=== PATIENT | female | born 1940 | race Caucasian/White ===

== ENCOUNTER 2018-03-25 10:48 | Inpatient (IN) ==
[2018-03-25] MEDS ORDERED: Morphine Inj 4 MG/ML Vial IV.PUSH ONE (15:50)
[2018-03-25] MEDS ORDERED: Sod Chloride 0.9% Inj 1,000 ML IV.SIG ONE (15:50)
--- NOTE | 2018-03-25 16:00 | ED ---
HPI General Chief Complaint: Abdominal Pain Stated Complaint: Pain Time Seen by Provider: 03/25/18 15:38 Source: patient and RN notes reviewed Mode of arrival: ambulatory Limitations: no limitations History of Present Illness HPI narrative: 77-year-old female presents to the emergency department for evaluation of abdominal pain. Patient states she had an endoscopy done by Dr. Manning, leasing manager, on Wednesday, March 16, 2018. She states that since then, she has had severe abdominal pain, shortness of breath with pain, difficulty eating solid foods. She states that when she eats solid foods, she nominal pain. No fevers or chills. Patient reports pain "at my esophagus". Patient reports associated nausea and vomiting. No vomiting yesterday or today. She also reports associated diarrhea, but no episodes today. She states she was recently diagnosed with pancreatic, intestinal cancer. She has called Dr. Alvarez's office to make an appointment, but has not been able to make an appointment at this time. She states that she was told they were reviewing her insurance. Patient reports history of appendectomy. Moderate severity. Current pain is 8/10. Patient reports 10-11 pound weight loss in the past week. MD complaint: Reports abdominal pain Onset (ago): week(s) (1) Pain Consistency: constant Location: Reports epigastric Severity: moderate Severity scale (1-10): 8 Quality: Reports aching Relieving factors: nothing Exacerbating factors: eating Context: Reports other (after endoscopy ) Associated symptoms: Reports nausea, vomiting and diarrhea; Denies fever, chills , constipation, dysuria, hematemesis, hematochezia, melena, hematuria, anorexia and syncope Related Data Home Medications Medication Instructions Recorded Confirmed bupropion HCl [Wellbutrin XL] 150 mg PO QAM 03/25/18 03/25/18 fluoxetine 40 mg PO DAILY 03/25/18 03/25/18 [id number] [Zenpep] PO QID 03/25/18 simvastatin 20 mg PO QPM 03/25/18 03/25/18 sucralfate 1 g PO Q6H 03/25/18 03/25/18 trazodone 50 mg PO DAILY 03/25/18 03/25/18 Allergies Allergy/AdvReac Type Severity Reaction Status Date / Time No Known Allergies Allergy Verified 03/25/18 11:28 Review of Systems ROS: all other systems reviewed are negative [facility] Medical History Medical History History of breast cancer (Acute) Hyperlipidemia (Acute) Pancreatic cancer (Acute) Surgical History Surgical History History of appendectomy (Acute) History of lumpectomy (Acute) History of lymph node dissection of axilla (Acute) Family History Family History Other Family history normal Social History Social History Substance History: No History of Abuse Second Hand Smoke Exposure: No Smoking Status: Never smoker How Often Do You Have a Drink Containing Alcohol: Never Recent Travel in [facility] within the Last 8 Weeks: No Recent Out of Country Travel within the Last 8 Weeks: No Exam Narrative Exam Narrative: GENERAL: Well-nourished, well-developed female patient, ambulatory. Afebrile. SKIN: Focused skin assessment warm/dry. HEAD: Normocephalic. Atraumatic. EYES: No scleral icterus. No injection or drainage. NECK: Supple, trachea midline. No JVD or lymphadenopathy. CARDIOVASCULAR: Regular rate and rhythm without murmurs, gallops, or rubs. RESPIRATORY: Breath sounds equal bilaterally. No accessory muscle use. Lung sounds are clear to auscultation. GASTROINTESTINAL: Abdomen soft and nondistended. Patient has tenderness to epigastric region MUSCULOSKELETAL: No cyanosis, or edema. BACK: Nontender without obvious deformity. No CVA tenderness. Course Initial Documented Vital Signs Temperature 98.7 F 03/25/18 11:25 Pulse Rate 96 H 03/25/18 11:25 Respiratory Rate 18 03/25/18 11:25 Blood Pressure 167/70 H 03/25/18 11:25 Pulse Oximetry 94 L 03/25/18 11:25 Last Documented Vital Signs Temperature 98.7 F 03/25/18 11:25 Pulse Rate 88 03/25/18 20:00 Respiratory Rate 17 03/25/18 20:00 Blood Pressure 120/63 03/25/18 20:00 Pulse Oximetry 97 03/25/18 20:00 Medical Decision Making BRIAN Attestation BRIAN supervised visit: Yes Attestation: I, Dr. Carmona, have reviewed the advance practice practitioner's documentation and am in agreement, met with the patient face to face, made the diagnosis, and the medical decision making was done by me. *My assessment and Findings: Patient seen and evaluated with nurse practitioner , please see nurse practitioner's note for further details. Here with upper abdominal pains, has had recent pancreatic cancer diagnosis, workup initiated including CAT scan in the ER. MDM Narrative Medical decision making narrative: 77-year-old female presents to the emergency department for evaluation of abdominal pain, shortness of breath after endoscopy 9 days ago. She reports recently being diagnosed with pancreatic cancer, not currently undergoing treatment. IV access is obtained. EKG, CBC, CMP, lipase, magnesium, CK, troponin, PTT, PT/INR, UA are ordered and pending. Chest x-ray, CT of the abdomen/pelvis with IV contrast ordered and pending. Patient is given normal saline 1 L IV bolus, morphine 4 mg IV, Zofran 4 mg IV. CBC shows no acute abnormality. CMP shows hypokalemia of 2.8. Lipase is 5222. Magnesium is 2.3. CK is 68. Troponin is less than 0.02. PTT is 25.2. PT/ INR is 9.7/1.0. UA is negative. Chest x-ray shows no evidence of acute cardiopulmonary process. CT of the abdomen/pelvis shows Biliary and pancreatic ductal dilatation. An apparent vague low-density mass of the pancreatic head estimated at 2.6 cm in size; Scattered low-density lesions of the liver of concern for metastases. These measure up to 1.6 cm in size. No other evidence of metastatic disease; Lobulated fibroid uterus; No acute abnormality seen of the alimentary tract. Patient will be admitted for pancreatitis, pancreatic cancer, hypokalemia. Medical Screen Exam Complete: Yes Emergency Medical Condition: Yes Lab Data Result diagrams: 03/25/18 16:15 03/25/18 16:15 Lab Results 03/25/18 03/25/18 03/25/18 Range/Units 16:15 16:15 16:15 WBC 6.9 (4.0-11.0) th/mm3 RBC 3.99 L (4.00-5.30) mil/mm3 Hgb 13.0 (11.6-15.3) gm/dL Hct 37.5 (35.0-46.0) % MCV 93.9 (80.0-100.0) fL MCH 32.6 (27.0-34.0) pg MCHC 34.7 (32.0-36.0) % RDW 12.1 (11.6-17.2) % Plt Count 301 (150-450) th/mm3 MPV 7.6 (7.0-11.0) fL Neut % (Auto) 70.1 H (16.0-70.0) % Lymph % (Auto) 14.3 (9.0-44.0) % [place] % (Auto) 11.7 H (0.0-8.0) % Eos % (Auto) 3.2 (0.0-4.0) % Baso % (Auto) 0.7 (0.0-2.0) % Neut # (Auto) 4.8 (1.8-7.7) th/mm3 Lymph # (Auto) 1.0 (1.0-4.8) th/mm3 [place] # (Auto) 0.8 (0.0-0.9) th/mm3 Eos # (Auto) 0.2 (0.0-0.4) th/mm3 Baso # (Auto) 0.0 (0.0-0.2) th/mm3 WBC Differential . Differential Comment Auto diff final PT 9.7 L (9.8-11.6) sec INR 1.0 Ratio APTT 25.2 (23.4-31.7) sec Sodium 139 (136-145) meq/L Potassium 2.8 L* (3.5-5.1) meq/L Chloride 101 (98-107) meq/L Carbon Dioxide 32.0 (21.0-32.0) meq/L Anion Gap 6 (5-15) meq/L BUN 15 (7-18) mg/dL Creatinine 0.72 (0.50-1.00) mg/dL Estimated GFR 79 L (>89) mL/min Random Glucose 129 H (74-106) mg/dL Calcium 8.9 (8.5-10.1) mg/dL Magnesium 2.3 (1.5-2.5) mg/dL Total Bilirubin 0.4 (0.2-1.0) mg/dL AST 38 H (15-37) U/L ALT 46 (10-53) U/L Alkaline Phosphatase 124 H (45-117) U/L Total Creatine Kinase 68 (26-192) U/L Troponin I Less than 0.02 L (0.02-0.05) ng/mL Total Protein 7.7 (6.4-8.2) g/dL Albumin 3.4 (3.4-5.0) g/dL Lipase 5222 H (73-393) U/L Urine Color (Yellw/Straw) Urine Clarity (Clear) Urine pH (5.0-8.5) Ur Specific [place] (1.002-1.035) Urine Protein (Neg-Trace) mg/dL Urine Glucose (UA) (Negative) mg/dL Urine Ketones (Negative) mg/dL Urine Occult Blood (Negative) Urine Nitrate (Negative) Urine Bilirubin (Negative) Urine Urobilinogen (Less than 2) mg/dL Ur Leukocyte Esterase (Negative) Urine WBC (0-5) /hpf Micro UA Comment Ur Microscopic Review Urine Culture Comments 03/25/18 Range/Units 17:25 WBC (4.0-11.0) th/mm3 RBC (4.00-5.30) mil/mm3 Hgb (11.6-15.3) gm/dL Hct (35.0-46.0) % MCV (80.0-100.0) fL MCH (27.0-34.0) pg MCHC (32.0-36.0) % RDW (11.6-17.2) % Plt Count (150-450) th/mm3 MPV (7.0-11.0) fL Neut % (Auto) (16.0-70.0) % Lymph % (Auto) (9.0-44.0) % [place] % (Auto) (0.0-8.0) % Eos % (Auto) (0.0-4.0) % Baso % (Auto) (0.0-2.0) % Neut # (Auto) (1.8-7.7) th/mm3 Lymph # (Auto) (1.0-4.8) th/mm3 [place] # (Auto) (0.0-0.9) th/mm3 Eos # (Auto) (0.0-0.4) th/mm3 Baso # (Auto) (0.0-0.2) th/mm3 WBC Differential Differential Comment PT (9.8-11.6) sec INR Ratio APTT (23.4-31.7) sec Sodium (136-145) meq/L Potassium (3.5-5.1) meq/L Chloride (98-107) meq/L Carbon Dioxide (21.0-32.0) meq/L Anion Gap (5-15) meq/L BUN (7-18) mg/dL Creatinine (0.50-1.00) mg/dL Estimated GFR (>89) mL/min Random Glucose (74-106) mg/dL Calcium (8.5-10.1) mg/dL Magnesium (1.5-2.5) mg/dL Total Bilirubin (0.2-1.0) mg/dL AST (15-37) U/L ALT (10-53) U/L Alkaline Phosphatase (45-117) U/L Total Creatine Kinase (26-192) U/L Troponin I (0.02-0.05) ng/mL Total Protein (6.4-8.2) g/dL Albumin (3.4-5.0) g/dL Lipase (73-393) U/L Urine Color Straw (Yellw/Straw) Urine Clarity Clear (Clear) Urine pH 7.0 (5.0-8.5) Ur Specific [place] 1.004 (1.002-1.035) Urine Protein Negative (Neg-Trace) mg/dL Urine Glucose (UA) Negative (Negative) mg/dL Urine Ketones Negative (Negative) mg/dL Urine Occult Blood Negative (Negative) Urine Nitrate Negative (Negative) Urine Bilirubin Negative (Negative) Urine Urobilinogen Less than 2 (Less than 2) mg/dL Ur Leukocyte Esterase Negative (Negative) Urine WBC 1 (0-5) /hpf Micro UA Comment Culture not ind Ur Microscopic Review Not Reportable Urine Culture Comments Culture not ind Imaging Data Radiologist's impression: Abdomen/Pelvis CT 03/25/18 15:50 CONCLUSION: 1. Biliary and pancreatic ductal dilatation. An apparent vague low-density mass of the pancreatic head estimated at 2.6 cm in size. 2. Scattered low-density lesions of the liver of concern for metastases. These measure up to 1.6 cm in size. No other evidence of metastatic disease. 3. Lobulated fibroid uterus. 4. No acute abnormality seen of the alimentary tract. Chest X-Ray 03/25/18 15:50 CONCLUSION: No evidence of acute cardiopulmonary process. Discharge Plan Discharge Disposition Patient Disposition: 30 Still Patient Discharge Details Diagnosis: Pancreatitis, Pancreatic cancer, Hypokalemia Physicians Team ED Provider: Candy Carmona ED Midlevel Provider: Janel Irving Primary Care Provider: Primary Care Love Elizabeth Attending Provider: Karolyn Live Other Providers: Jose Caputo Status ED Status: Left Department Discharge Information Discharge Date/Time: 03/25/18 21:56
--- NOTE | 2018-03-25 16:19 | XR ---
EXAM DATE: 03/25/2018 4:15 PM EST AGE/SEX: 77 years / Female INDICATIONS: Lower chest/upper abdomen pain. CLINICAL DATA: This is the patient's initial encounter. Patient reports that signs and symptoms have been present for 1 week and indicates a pain score of 5/10. MEDICAL/SURGICAL HISTORY: None. None. COMPARISON: No prior exams available for comparison. FINDINGS: Lungs are hypoaerated but otherwise clear. There is no evidence of acute airspace disease or congesti on. Heart and mediastinal structures are unremarkable. Osseous structures are intact. CONCLUSION: No evidence of acute cardiopulmonary process. Electronically signed by: Caleb Beltran MD 03/25/2018 4:17 PM EST
[2018-03-25 17:11] LABS: Baso % (Auto) 0.7 % (0.0-2.0); Eos # (Auto) 0.2 th/mm3 (0.0-0.4); Eos % (Auto) 3.2 % (0.0-4.0); Hematocrit 37.5 % (35.0-46.0); Lymph % (Auto) 14.3 % (9.0-44.0); Mean Corpuscular HGB Conc 34.7 % (32.0-36.0); Mean Corpuscular Hemoglobin 32.6 pg (27.0-34.0); Mean Corpuscular Volume 93.9 fL (80.0-100.0); Mean Platelet Volume 7.6 fL (7.0-11.0); Mono # (Auto) 0.8 th/mm3 (0.0-0.9); Mono % (Auto) 11.7 % (0.0-8.0); Neut # (Auto) 4.8 th/mm3 (1.8-7.7); Neut % (Auto) 70.1 % (16.0-70.0); Platelet Count 301 th/mm3 (150-450); Red Blood Count 3.99 mil/mm3 (4.00-5.30); Red Cell Distribution Width 12.1 % (11.6-17.2); White Blood Count 6.9 th/mm3 (4.0-11.0)
[2018-03-25 17:23] LABS: Activated Partial Thrombo Time 25.2 sec (23.4-31.7); Prothrombin Time 9.7 sec (9.8-11.6)
[2018-03-25 17:34] LABS: Alanine Aminotransferase 46 U/L (10-53); Albumin 3.4 g/dL (3.4-5.0); Alkaline Phosphatase 124 U/L (45-117); Anion Gap 6 meq/L (5-15); Aspartate Aminotransferase 38 U/L (15-37); Blood Urea Nitrogen 15 mg/dL (7-18); Calcium 8.9 mg/dL (8.5-10.1); Chloride 101 meq/L (98-107); Glomerular Filtration Rate 79 mL/min (>89); Glucose,Random 129 mg/dL (74-106); Lipase 5222 U/L (73-393); Magnesium 2.3 mg/dL (1.5-2.5); Sodium 139 meq/L (136-145); Total Protein 7.7 g/dL (6.4-8.2)
[2018-03-25 17:36] LABS: Creatine Kinase 68 U/L (26-192); Potassium 2.8 meq/L (3.5-5.1)
[2018-03-25 17:52] LABS: Bilirubin,Urine Negative (Negative); Clarity,Urine Clear (Clear); Color,Urine Straw (Yellw/Straw); Glucose,Urine (UA) Negative (Negative); Leukocyte Esterase,Urine Negative (Negative); Nitrite,Urine Negative (Negative); Specific Gravity,Urine 1.004 (1.002-1.035)
--- NOTE | 2018-03-25 18:56 | CT ---
EXAM DATE: 03/25/2018 6:40 PM EST AGE/SEX: 77 years / Female INDICATIONS: Abdominal pain; difficulty eating solid foods. CLINICAL DATA: This is the patient's initial encounter. Patient reports that signs and symptoms have been present for 1 day and indicates a pain score of 6/10. MEDICAL/SURGICAL HISTORY: Carcinoma, pancreas. None. ORAL CONTRAST: No oral contrast ingested. RADIATION DOSE: 7.86 CTDI (mGy) COMPARISON: No prior exams available for comparison. TECHNIQUE: Multiple contiguous axial images were obtained through the abdomen and pelvis following b olus infusion of 97 ml Omnipaque 350 (iohexol) nonionic water-soluble contrast as a single exam dos e. No oral contrast ingested. Using automated exposure control and adjustment of the mA and/or kV ac cording to patient size, radiation dose was kept as low as reasonably achievable to obtain optimal di agnostic quality images. DICOM format image data is available electronically for review and comparis on. FINDINGS: There is intrahepatic and extrahepatic biliary distention. Common bile duct measures approximately 18 mm and is distended down to the pancreatic head. There is a questionable vague low-density mass of t he pancreatic head measuring roughly 2.6 cm. There is pancreatic duct dilatation but no parenchymal a trophy. Numerous scattered hypodensities of the liver and not convincing for cysts or other benign st ructures. These measure up to 1.6 cm in size. No obstruction or acute inflammatory changes seen of the gastrointestinal tract. I don't convincingly see a GI tract mass. Spleen, adrenal glands and kidneys are within normal limits. No free fluid or f ree air. No lymphadenopathy. Fibroid uterus noted. Trace atelectasis seen of the visualized lung bases. No acute abnormalities are seen of the visualize d osseous structures are CONCLUSION: 1. Biliary and pancreatic ductal dilatation. An apparent vague low-density mass of the pancreatic he ad estimated at 2.6 cm in size. 2. Scattered low-density lesions of the liver of concern for metastases. These measure up to 1.6 cm in size. No other evidence of metastatic disease. 3. Lobulated fibroid uterus. 4. No acute abnormality seen of the alimentary tract. Electronically signed by: Tyler Gardner MD 03/25/2018 6:55 PM EST
[2018-03-25] MEDS ORDERED: Bisacodyl 10 MG Supp RECTAL PRN (20:58)
--- NOTE | 2018-03-25 21:06 | P.HP ---
History of Present Illness Service: [facility] Primary Care Physician: No Primary Care Physician History of Present Illness: 77-year-old female with past medical history is for recently diagnosed pancreatic cancer, hyperlipidemia and history of breast cancer presents to the emergency department for the evaluation of progressively worsening epigastric abdominal pain. The patient reports that for the past week she has had nausea and vomiting with worsening abdominal pain. Her pain is aggravated by food. She reports associated anorexia. She had an EGD on 03/16/[address] Manning and per the patient, reports biopsy-proven pancreatic cancer. She is supposed to follow-up with Dr. Alvarez as an outpatient however has not yet been evaluated. She denies any fever/chills. No chest pain or shortness of breath. No focal neurologic deficits. Inpatient Certification: I certify that the inpatient services were ordered in accordance with Medicare regulations governing the order. This includes certification that hospital inpatient services are reasonable and necessary and in the case of services not specified as inpatient-only under 42 CFR 419.22(n), that they are appropriately provided as inpatient services in accordance to with the 2-midnight benchmark under 43 CFR 412.3(e) Estimated Total Length of Stay (Days): 3 Plans for Post Hospital Care: Not yet determined Review of Systems All other systems reviewed negative except as stated in HPI PMFSH - History History Provided By: Patient, Family Member - Medical History Medical History: Medical History (Last Updated 03/25/18 @ 21:03 by Karolyn Live MD) History of breast cancer Hyperlipidemia Pancreatic cancer - Surgical History Surgical History: Surgical History (Last Updated 03/25/18 @ 21:03 by Karolyn Live MD) History of appendectomy History of lumpectomy History of lymph node dissection of axilla - Family History Family History: Family History (Last Updated 03/25/18 @ 21:03 by Karolyn Live MD) Other Family history normal - Tobacco History Smoking Status: Former smoker - Alcohol History How Often Do You Have a Drink Containing Alcohol: Never - Substance Use History Substance History: No History of Abuse - Travel History Recent Travel in the [place] Within the Last 8 Weeks: No Recent Travel Out of the Country Within the Last 8 Weeks: No - Immunization History Tetanus Immunization: Unsure Medications and Allergies Active Medications: Active Medications Al Hydroxide/Mg Hydroxide (Milk Of Magnesia Liq) 30 ml PO Q12H PRN PRN Reason: Mild Constipation Bisacodyl (Dulcolax Supp) 10 mg RECTAL DAILY PRN PRN Reason: SEVERE CONSITIPATION Lactulose (Lactulose Liq) 30 ml PO DAILY PRN PRN Reason: SEVERE CONSITIPATION Sodium Chloride (Ns Flush) 2 ml IV.FLUSH PRN PRN PRN Reason: FLUSH AFTER USING IV ACCESS Last Admin: 03/25/18 16:11 Dose: 2 ml Allergies Allergy/AdvReac Type Severity Reaction Status Date / Time No Known Allergies Allergy Verified 03/25/18 11:28 Home Medications Medication Instructions Recorded Confirmed Type bupropion HCl [Wellbutrin XL] 150 mg PO QAM 03/25/18 03/25/18 History fluoxetine 40 mg PO DAILY 03/25/18 03/25/18 History zoxvjh-laxvahqh-ljppltp [Zenpep] PO QID 03/25/18 History simvastatin 20 mg PO QPM 03/25/18 03/25/18 History sucralfate 1 g PO Q6H 03/25/18 03/25/18 History trazodone 50 mg PO DAILY 03/25/18 03/25/18 History Exam Vital signs: Vital Signs 03/25/18 11:25 03/25/18 16:02 03/25/18 16:03 Temperature 98.7 F Pulse Rate 96 H 88 89 Respiratory Rate 18 20 Blood Pressure 167/70 H 169/79 H Pulse Oximetry 94 L 96 03/25/18 20:00 Temperature Pulse Rate 88 Respiratory Rate 17 Blood Pressure 120/63 Pulse Oximetry 97 Intake & Output 03/25/18 03/25/18 03/26/18 06:59 18:59 06:59 Intake Total 1000 / 1000 Balance 1000 / 1000 Weight 68.039 kg Intake: IV 1000 / 1000 NS Inj 1,000 ML @ Wide Open IV. 1000 / 1000 SIG BOLUS ONE Rx#:[id number] Narrative: Gen.: No acute distress Head: Normocephalic. Atraumatic. EENT: Pupils equal round and reactive to light. Nose without drainage. Airway intact. Throat without injection. Cardiovascular: Regular rate and rhythm. No murmurs, rubs or gallops. Respiratory: Lungs clear to auscultation bilaterally. No wheezes or rhonchi. Abdomen: Soft, tender to palpation in the epigastrium, nondistended. No peritoneal signs. Musculoskeletal: No gross deformities. No edema. Skin: No obvious rashes or erythema. Neuro: Sensory and motor grossly intact. Cranial nerves II through XII grossly intact. Results - Labs CBC & Chem 7: 03/25/18 16:15 03/25/18 16:15 Labs: Laboratory Results - last 24 hr 03/25/18 03/25/18 03/25/18 16:15 16:15 16:15 WBC 6.9 RBC 3.99 L Hgb 13.0 Hct 37.5 MCV 93.9 MCH 32.6 MCHC 34.7 RDW 12.1 Plt Count 301 MPV 7.6 Neut % (Auto) 70.1 H Lymph % (Auto) 14.3 [place] % (Auto) 11.7 H Eos % (Auto) 3.2 Baso % (Auto) 0.7 Neut # (Auto) 4.8 Lymph # (Auto) 1.0 [place] # (Auto) 0.8 Eos # (Auto) 0.2 Baso # (Auto) 0.0 WBC Differential . Differential Comment Auto diff final PT 9.7 L INR 1.0 APTT 25.2 Sodium 139 Potassium 2.8 L* Chloride 101 Carbon Dioxide 32.0 Anion Gap 6 BUN 15 Creatinine 0.72 Estimated GFR 79 L Random Glucose 129 H Calcium 8.9 Magnesium 2.3 Total Bilirubin 0.4 AST 38 H ALT 46 Alkaline Phosphatase 124 H Total Creatine Kinase 68 Troponin I Less than 0.02 L Total Protein 7.7 Albumin 3.4 Lipase 5222 H Urine Color Urine Clarity Urine pH Ur Specific [place] Urine Protein Urine Glucose (UA) Urine Ketones Urine Occult Blood Urine Nitrate Urine Bilirubin Urine Urobilinogen Ur Leukocyte Esterase Urine WBC Micro UA Comment Ur Microscopic Review Urine Culture Comments 03/25/18 17:25 WBC RBC Hgb Hct MCV MCH MCHC RDW Plt Count MPV Neut % (Auto) Lymph % (Auto) [place] % (Auto) Eos % (Auto) Baso % (Auto) Neut # (Auto) Lymph # (Auto) [place] # (Auto) Eos # (Auto) Baso # (Auto) WBC Differential Differential Comment PT INR APTT Sodium Potassium Chloride Carbon Dioxide Anion Gap BUN Creatinine Estimated GFR Random Glucose Calcium Magnesium Total Bilirubin AST ALT Alkaline Phosphatase Total Creatine Kinase Troponin I Total Protein Albumin Lipase Urine Color Straw Urine Clarity Clear Urine pH 7.0 Ur Specific [place] 1.004 Urine Protein Negative Urine Glucose (UA) Negative Urine Ketones Negative Urine Occult Blood Negative Urine Nitrate Negative Urine Bilirubin Negative Urine Urobilinogen Less than 2 Ur Leukocyte Esterase Negative Urine WBC 1 Micro UA Comment Culture not ind Ur Microscopic Review Not Reportable Urine Culture Comments Culture not ind - Imaging Impressions Abdomen/Pelvis CT 03/25/18 15:50 CONCLUSION: 1. Biliary and pancreatic ductal dilatation. An apparent vague low-density mass of the pancreatic head estimated at 2.6 cm in size. 2. Scattered low-density lesions of the liver of concern for metastases. These measure up to 1.6 cm in size. No other evidence of metastatic disease. 3. Lobulated fibroid uterus. 4. No acute abnormality seen of the alimentary tract. Chest X-Ray 03/25/18 15:50 CONCLUSION: No evidence of acute cardiopulmonary process. Caprini VTE Risk Assessment Caprini VTE Risk Assessment: Moderate/High Risk (score >= 2) Caprini Risk Assessment Model: Point Value = 1 Point Value = 2 Point Value = 3 Point Value = 5 Age 41-60 Minor surgery BMI > 25 kg/m2 Swollen legs Varicose veins or History of unexplained or recurrent spontaneous Oral contraceptives or hormone replacement Sepsis (< 1 month) Serious lung disease, including pneumonia (< 1 month) Abnormal pulmonary function Acute myocardial infarction Congestive heart failure (< 1 month) History of inflammatory bowel disease Medical patient at bed rest Age 61-74 Arthroscopic surgery Major open surgery (> 45 min) Laparoscopic surgery (> 45 min) Malignancy Confined to bed (> 72 hours) Immobilizing plaster cast Central venous access Age >= 75 History of VTE Family history of VTE Factor V Leiden Prothrombin [id number] Lupus anticoagulant Anticardiolipin antibodies Elevated serum homocysteine Heparin-induced thrombocytopenia Other congenital or acquired thrombophilia Stroke (< 1 month) Elective arthroplasty Hip, pelvis, or leg fracture Acute spinal cord injury (< 1 month) Prophylaxis Regimen: Total Risk Factor Score Risk Level Prophylaxis Regimen 0-1 Low Early ambulation 2 Moderate Order ONE of the following: *Sequential Compression Device (SCD) *Heparin 5000 units SQ BID 3-4 Higher Order ONE of the following medications: *Heparin 5000 units SQ TID *Enoxaparin/Lovenox 40 mg SQ daily (WT < 150 kg, CrCl > 30 mL/min) *Enoxaparin/Lovenox 30 mg SQ daily (WT < 150 kg, CrCl > 10-29 mL/min) *Enoxaparin/Lovenox 30 mg SQ BID (WT < 150 kg, CrCl > 30 mL/min) AND/OR *Sequential Compression Device (SCD) 5 or more Highest Order ONE of the following medications: *Heparin 5000 units SQ TID (Preferred with Epidurals) *Enoxaparin/Lovenox 40 mg SQ daily (WT < 150 kg, CrCl > 30 mL/min) *Enoxaparin/Lovenox 30 mg SQ daily (WT < 150 kg, CrCl > 10-29 mL/min) *Enoxaparin/Lovenox 30 mg SQ BID (WT < 150 kg, CrCl > 30 mL/min) AND *Sequential Compression Device (SCD) Assessment and Plan - Plan Assessment/plan: 1. Pancreatic cancer/abdominal pain/nausea/vomiting Newly diagnosed, status post EGD with biopsy on 03/16/18 CT of the abdomen/pelvis shows biliary and pancreatic ductal dilation with pancreatic head mass. Also concerning for metastasis in the liver. Oncology consulted, appreciate assistance Morphine and Zofran 2. Hypokalemia Potassium 2.8 Status post p.o. and IV repletion Monitor BMP 3. Hyperlipidemia Holding home medications at this time as patient not tolerating p.o. FEN Clear liquid diet Electrolytes: As above Heparin NS +20 of KCl at 84 cc/hour
[2018-03-25] MEDS ORDERED: Sodium Chloride 0.9% 2 ML Flush PRN IV.FLUSH (21:09)
[2018-03-25] MEDS: Senna/Docusate Sodium 8.6/50 MG Tablet PO SCH (21:19)
[2018-03-25] MEDS: Heparin - SQ 10,000 UNITS/ML Vial SQ SCH (21:19)
[2018-03-25] MEDS ORDERED: traZODone 50 MG Tablet PO ONE (22:44)
[2018-03-25] MEDS: Morphine Inj 4 MG/ML Vial IV.PUSH PRN (22:53)
[2018-03-26 07:00] LABS: Baso % (Auto) 0.9 % (0.0-2.0); Eos # (Auto) 0.2 th/mm3 (0.0-0.4); Eos % (Auto) 4.1 % (0.0-4.0); Hematocrit 33.8 % (35.0-46.0); Hemoglobin 11.2 gm/dL (11.6-15.3); Lymph # (Auto) 1.1 th/mm3 (1.0-4.8); Lymph % (Auto) 21.9 % (9.0-44.0); Mean Corpuscular HGB Conc 33.2 % (32.0-36.0); Mean Corpuscular Hemoglobin 32.2 pg (27.0-34.0); Mean Platelet Volume 7.8 fL (7.0-11.0); Mono # (Auto) 0.6 th/mm3 (0.0-0.9); Mono % (Auto) 12.5 % (0.0-8.0); Neut % (Auto) 60.6 % (16.0-70.0); Platelet Count 262 th/mm3 (150-450); Red Blood Count 3.49 mil/mm3 (4.00-5.30); Red Cell Distribution Width 12.1 % (11.6-17.2)
[2018-03-26 07:15] LABS: Alanine Aminotransferase 36 U/L (10-53); Albumin 2.9 g/dL (3.4-5.0); Alkaline Phosphatase 99 U/L (45-117); Anion Gap 5 meq/L (5-15); Aspartate Aminotransferase 30 U/L (15-37); Blood Urea Nitrogen 10 mg/dL (7-18); Calcium 8.4 mg/dL (8.5-10.1); Chloride 108 meq/L (98-107); Glomerular Filtration Rate Greater Than 89 mL/min (>89); Glucose,Random 117 mg/dL (74-106); Potassium 4.2 meq/L (3.5-5.1); Sodium 141 meq/L (136-145); Total Protein 6.4 g/dL (6.4-8.2)
[2018-03-26] MEDS ORDERED: Influenza (Quadrivalent) Vaccine 0.5 ML Syringe IM ONE (09:00)
[2018-03-26] MEDS: Sodium Chloride 0.9% 2 ML Flush BID IV.FLUSH SCH ×2 (10:08→20:11)
[2018-03-26] MEDS: Heparin - SQ 10,000 UNITS/ML Vial SQ SCH ×2 (10:09→20:10)
[2018-03-26] MEDS: Senna/Docusate Sodium 8.6/50 MG Tablet PO SCH ×2 (10:09→20:10)
--- NOTE | 2018-03-26 10:31 | P.PN ---
Subjective Interval history: Follow-up pancreatic cancer with metastasis March 26, 2018-patient seen and examined, reports improving abdominal pain along with p.o. intake Physical Exam Vital signs: Vital Signs 03/25/18 11:25 03/25/18 16:02 03/25/18 16:03 Temperature 98.7 F Pulse Rate 96 H 88 89 Respiratory Rate 18 20 Blood Pressure 167/70 H 169/79 H Pulse Oximetry 94 L 96 03/25/18 20:00 03/26/18 00:00 03/26/18 00:29 Temperature 97.8 F Pulse Rate 88 111 H Respiratory Rate 17 Blood Pressure 120/63 118/53 L Pulse Oximetry 97 78 L 97 03/26/18 00:41 03/26/18 04:00 03/26/18 04:21 Temperature 98.2 F Pulse Rate 94 H 87 85 Respiratory Rate 18 Blood Pressure 124/60 Pulse Oximetry 97 03/26/18 09:45 Temperature 98.4 F Pulse Rate 85 Respiratory Rate 16 Blood Pressure 125/59 L Pulse Oximetry 97 Intake & Output 03/25/18 03/26/18 03/26/18 18:59 06:59 18:59 Intake Total 1000 / 1000 480 / 480 1000 / 1000 Balance 1000 / 1000 480 / 480 1000 / 1000 Weight 68.039 kg 67.5 kg Intake: IV 1000 / 1000 1000 / 1000 NS + KCl 20 mEq Inj 1,000 ML @ 1000 / 1000 84 mls/hr IV.CONT .[id number] [facility] Rx#:[id number] NS Inj 1,000 ML @ Wide Open IV. 1000 / 1000 SIG BOLUS ONE Rx#:[id number] Oral 480 / 480 Other: # Voids 3 Date of Last Bowel Movement 03/25/18 Weight On Admission 67.5 kg Narrative: GENERAL: NAD SKIN: Warm and dry. HEAD: Atraumatic. Normocephalic. EYES: Pupils equal and round. No scleral icterus. No injection or drainage. ENT: No nasal bleeding or discharge. Mucous membranes pink and moist. NECK: Trachea midline. No JVD. CARDIOVASCULAR: Regular rate and rhythm. RESPIRATORY: No accessory muscle use. Clear to auscultation. Breath sounds equal bilaterally. GASTROINTESTINAL: Abdomen soft, mildly tender, nondistended. Hepatic and splenic margins not palpable. MUSCULOSKELETAL: Extremities without clubbing, cyanosis, or edema. No obvious deformities. NEUROLOGICAL: Awake and alert. No obvious cranial nerve deficits. Motor grossly within normal limits. Five out of 5 muscle strength in the arms and legs. Normal speech. PSYCHIATRIC: Appropriate mood and affect; insight and judgment normal. Results - Labs CBC & Chem 7: 03/26/18 05:25 03/26/18 05:25 Laboratory Results - last 24 hr 03/25/18 03/25/18 03/25/18 16:15 16:15 16:15 WBC 6.9 RBC 3.99 L Hgb 13.0 Hct 37.5 MCV 93.9 MCH 32.6 MCHC 34.7 RDW 12.1 Plt Count 301 MPV 7.6 Neut % (Auto) 70.1 H Lymph % (Auto) 14.3 [place] % (Auto) 11.7 H Eos % (Auto) 3.2 Baso % (Auto) 0.7 Neut # (Auto) 4.8 Lymph # (Auto) 1.0 [place] # (Auto) 0.8 Eos # (Auto) 0.2 Baso # (Auto) 0.0 WBC Differential . Differential Comment Auto diff final PT 9.7 L INR 1.0 APTT 25.2 Sodium 139 Potassium 2.8 L* Chloride 101 Carbon Dioxide 32.0 Anion Gap 6 BUN 15 Creatinine 0.72 Estimated GFR 79 L Random Glucose 129 H Calcium 8.9 Magnesium 2.3 Total Bilirubin 0.4 AST 38 H ALT 46 Alkaline Phosphatase 124 H Total Creatine Kinase 68 Troponin I Less than 0.02 L Total Protein 7.7 Albumin 3.4 Lipase 5222 H Urine Color Urine Clarity Urine pH Ur Specific [place] Urine Protein Urine Glucose (UA) Urine Ketones Urine Occult Blood Urine Nitrate Urine Bilirubin Urine Urobilinogen Ur Leukocyte Esterase Urine WBC Micro UA Comment Ur Microscopic Review Urine Culture Comments 03/25/18 03/26/18 03/26/18 17:25 05:25 05:25 WBC 5.0 RBC 3.49 L Hgb 11.2 L Hct 33.8 L MCV 97.0 MCH 32.2 MCHC 33.2 RDW 12.1 Plt Count 262 MPV 7.8 Neut % (Auto) 60.6 Lymph % (Auto) 21.9 [place] % (Auto) 12.5 H Eos % (Auto) 4.1 H Baso % (Auto) 0.9 Neut # (Auto) 3.0 Lymph # (Auto) 1.1 [place] # (Auto) 0.6 Eos # (Auto) 0.2 Baso # (Auto) 0.0 WBC Differential . Differential Comment Auto diff final PT INR APTT Sodium 141 Potassium 4.2 D Chloride 108 H Carbon Dioxide 28.0 Anion Gap 5 BUN 10 Creatinine 0.63 Estimated GFR Greater than 89 Random Glucose 117 H Calcium 8.4 L Magnesium Total Bilirubin 0.5 AST 30 ALT 36 Alkaline Phosphatase 99 Total Creatine Kinase Troponin I Total Protein 6.4 D Albumin 2.9 L Lipase Urine Color Straw Urine Clarity Clear Urine pH 7.0 Ur Specific [place] 1.004 Urine Protein Negative Urine Glucose (UA) Negative Urine Ketones Negative Urine Occult Blood Negative Urine Nitrate Negative Urine Bilirubin Negative Urine Urobilinogen Less than 2 Ur Leukocyte Esterase Negative Urine WBC 1 Micro UA Comment Culture not ind Ur Microscopic Review Not Reportable Urine Culture Comments Culture not ind 03/26/18 05:25 WBC RBC Hgb Hct MCV MCH MCHC RDW Plt Count MPV Neut % (Auto) Lymph % (Auto) [place] % (Auto) Eos % (Auto) Baso % (Auto) Neut # (Auto) Lymph # (Auto) [place] # (Auto) Eos # (Auto) Baso # (Auto) WBC Differential Differential Comment PT INR APTT Sodium Potassium Chloride Carbon Dioxide Anion Gap BUN Creatinine Estimated GFR Random Glucose Calcium Magnesium Total Bilirubin AST ALT Alkaline Phosphatase Total Creatine Kinase Troponin I Total Protein Albumin Lipase 3451 H Urine Color Urine Clarity Urine pH Ur Specific [place] Urine Protein Urine Glucose (UA) Urine Ketones Urine Occult Blood Urine Nitrate Urine Bilirubin Urine Urobilinogen Ur Leukocyte Esterase Urine WBC Micro UA Comment Ur Microscopic Review Urine Culture Comments - Imaging Impressions Abdomen/Pelvis CT 03/25/18 15:50 CONCLUSION: 1. Biliary and pancreatic ductal dilatation. An apparent vague low-density mass of the pancreatic head estimated at 2.6 cm in size. 2. Scattered low-density lesions of the liver of concern for metastases. These measure up to 1.6 cm in size. No other evidence of metastatic disease. 3. Lobulated fibroid uterus. 4. No acute abnormality seen of the alimentary tract. Chest X-Ray 03/25/18 15:50 CONCLUSION: No evidence of acute cardiopulmonary process. Assessment and Plan - Plan 77-year-old female with Newly diagnosed pancreatic cancer with metastasis status post EGD with biopsy on 03/16/18 CT of the abdomen/pelvis shows biliary and pancreatic ductal dilation with pancreatic head mass. Also concerning for metastasis in the liver. Oncology consulted, appreciate assistance Resume Creon, Continue with morphine and Zofran 2. Hypokalemia Resolved status post p.o. and IV repletion 3. Hyperlipidemia Resume Statin 4. Anxiety/Depression Resume outpatient medications DVT prophylaxis: Bilateral SCDs
[2018-03-26] MEDS: Sucralfate 1 GM Tablet PO SCH ×3 (12:47→23:51)
[2018-03-26] MEDS: buPROPion 150 MG 12 HR Tablet PO SCH (12:47)
[2018-03-26] MEDS: Morphine Inj 4 MG/ML Vial IV.PUSH PRN ×4 (13:01→23:51)
--- NOTE | 2018-03-26 13:44 | MB ---
cc: Jose Caputo MD DATE: 03/26/2018 REASON FOR CONSULTATION: History of pancreatic cancer, admitted with abdominal pain. PATIENT PROFILE: The patient is a 77-year-old white female, x1. She has 2 children, both sons. She was born in [place]. She spends 6 months in [place] and [place] in [place]. She owns a home in [place]. She is retired and had worked with her , who still works. The patient's is involved in property management. The patient does not smoke and does not drink. HISTORY OF PRESENT ILLNESS: The patient is a 77-year-old female who has enjoyed excellent health. In 2007, she developed a small carcinoma of the right breast and underwent a lumpectomy and what sounds like a lymph node biopsy. She was treated with postoperative radiation and took hormonal therapy for 7 years. She has had no recurrence and had her last mammogram in 01/2018, was normal. Her immediate problem dates back to approximately a month ago, when she developed upper abdominal pain. She was in [place] at that time. She saw several physicians and was treated for constipation. She then moved to [place] for her 6 month stay. The upper abdominal pain worsened and was associated with a 7-pound weight loss. She went to [facility] because of the severity of the pain and was admitted on 03/12/2018 and I believe discharged on 03/13/2018. She had a CAT scan of the abdomen and MRI. She was found to have a pancreatic mass. She was referred to a category development analyst, Dr. Manning, and underwent an endoscopic ultrasound on 03/16/2018. She was found to have a normal esophagus and normal stomach. There is notation of a duodenal mass involving the head of the pancreas. She was clinically staged as T2 N0 Mx. A biopsy was done. I do not have the report, but the patient tells me that this showed pancreatic cancer. The patient was to see Dr. Alvarez as an outpatient. The pain continued to be problematic and worsened. In order to undergo care for the pain as well as expedite the evaluation, she went to [facility] where she is now admitted. I am seeing her in consultation during the weekend. Dr. Alvarez will be available this coming Wednesday. At the present time, her major complaints are upper abdominal pain with occasional radiation to the back and diminished appetite due to the pain. Since being hospitalized, she has undergone the following studies: CT scan of the abdomen and pelvis on 03/25/2018 showing a questionable density/mass in the pancreatic head measuring 2.6 cm. There is pancreatic ductal dilation. There are numerous scattered hypodensities throughout the liver, which are not convincing for cysts or other benign structures. They measure up to 1.6 cm in size. LABORATORY STUDIES: Include a hemoglobin of 11.2, white count 5000, platelets 262,000. CMP is unremarkable. Liver function tests are normal. Serum lipase is 3451. PAST SURGICAL HISTORY: 1. Appendectomy age 16. 2. biopsy of right breast in 2007 followed by right lumpectomy and axillary node biopsy followed by postoperative radiation and 7 years of hormonal therapy without evidence of recurrent breast cancer. PAST MEDICAL HISTORY: 1. Elevated cholesterol. 2. Endoscopic ultrasound biopsy of the pancreatic head mass on 03/16/2018 showing malignancy according to history. 3. Depression MEDICATIONS ON ADMISSION: 1. Trazodone. 2. Carafate. 3. Simvastatin. 4. Fluoxetine. 5. Wellbutrin. ALLERGIES: NO KNOWN ALLERGIES. FAMILY HISTORY: Father at age 83 of a mesothelioma and had asbestos exposure. The mother at 73 of heart disease. The patient has 2 brothers who are , 1 of melanoma and another of pancreatic cancer. REVIEW OF SYSTEMS: Vision: She has cataracts. She is anticipating having surgery. She has hearing aids. No chest pain or palpitations. No shortness of breath, cough. She has upper abdominal pain occasionally radiating to the back. Seven pound weight loss. No melena, hematochezia, hematemesis, dysphasia. Last colonoscopy 7 or 8 years ago. Musculoskeletal: No bone pain. Neurologic: No weakness. Cognition and affect are normal. PHYSICAL EXAMINATION: GENERAL: Reveals a well-appearing female. VITAL SIGNS: Blood pressure is 125/60, respiratory rate 16, pulse 80, afebrile, O2 saturation 97%. HEENT: Head is normocephalic. Sclerae and conjunctivae are normal. Oropharynx unremarkable. No cervical, supraclavicular, axillary, or inguinal adenopathy. BREASTS: Left breast without masses. Right breast reveals a scar where she had her previous surgery, slight induration from the scar, but no distinct mass. HEART: Regular rhythm without murmurs or gallop. LUNGS: Clear, without rales, wheezes, or rhonchi. ABDOMEN: Without hepatosplenomegaly or masses. EXTREMITIES: No edema. MUSCULOSKELETAL: No bone pain. NEUROLOGIC: No weakness. Cognition and affect normal. SKIN: Unremarkable. ASSESSMENT: The patient is a 77-year-old female who presents with a pancreatic mass and questionable metastatic disease to the liver. She had an EUS and biopsy, which, according to history, is consistent with adenocarcinoma, but I do have the path report. She has an interesting history in that her brother had pancreatic cancer and she had a breast cancer, suggesting that there may be a genetic component to this, which can be exploited if this is in fact, true. RECOMMENDATIONS: 1. It is imperative that we determine if this is a potentially resectable lesion. This would best be approached by doing an MRI with contrast to look at the liver and to look at the pancreas. I suspect that we are not dealing with unresectable pancreatic cancer, especially given the pain. If this is the case then she is a candidate for chemotherapy and I would recommend Folfirinox. I discussed with the patient and how we determine resectability and that if she has metastatic disease to the liver this would not be resectable cancer. She is already struggling with pain and rather than discharge her, I believe the workup should be completed in the hospital and she can have a port placed and move on to treatment. 2. I have ordered a CEA, CA 19-9, MRI of the abdomen with contrast to evaluate the liver and pancreatic mass regarding metastatic disease and resectability. If the MRI is not diagnositc would do an outpatient PET scan. Dr. Alvarez will return Wednesday. 3. At some point in the future, it would be appropriate to do BRCA testing as there may be an inherited component to her illness. If so, it may have treatment implications in terms of [place]-based therapy or PARP inhibitors. MD AMBAR Rodriguez/taryn , 12:15 PM , 12:32 PM SUNIL
[2018-03-26] MEDS ORDERED: Gadobutrol PF 7.5 MMOL/7.5 ML Vial (for RAD) IV.SIG ONE (13:49)
--- NOTE | 2018-03-26 14:25 | ECG ---
Date Performed: 03/25/2018 Time Performed: 16:22:11 PTAGE: 77 years EKG: Sinus rhythm LATE R-WAVE TRANSITION LEFT ANTERIOR FASCICULAR BLOCK NONSPECIFIC ST & T-WAVE ABNORMALITY ABNORMAL E CG NO PREVIOUS TRACING DOCTOR: [employer] Morris Interpretating Date/Time 03/26/2018 14:24:30
--- NOTE | 2018-03-26 14:34 | MR ---
EXAM DATE: 03/26/2018 1:55 PM EST AGE/SEX: 77 years / Female INDICATIONS: Metastatic disease. CLINICAL DATA: This is the patient's initial encounter. Patient reports that signs and symptoms have been present for 1 day and indicates a pain score of 0/10. MEDICAL/SURGICAL HISTORY: Carcinoma, pancreas. Appendectomy. COMPARISON: [facility], CT ABDOMEN & PELVIS W CONTRAST, 03/25/2018. . TECHNIQUE: Multiplanar, multisequence images of the abdomen were obtained prior to and following adm inistration of 7 ml Gadavist (gadobutrol) contrast as a single exam dose with dynamic multiphase tech nique. FINDINGS: Liver: There are multiple masses seen throughout the liver. These measure up to 1.5 cm. These primari ly demonstrate increased signal on the T2-weighted images and low signal on T1-weighted images. On th e postcontrast images, many of the lesions demonstrate perilesional enhancement which is concerning f or possible metastatic lesions. The lesions themselves do not appear to significantly enhance. There is intra and extrahepatic biliary duct dilatation. The common bile duct measures up to 1.4 cm. Is dil ated down to the level of the ampulla. Gallbladder: No gallstones seen. Spleen: The spleen is unremarkable. Pancreas: The pancreatic duct is dilated measuring 5.5 mm. Many side branches in the pancreatic body and tail demonstrate filling. There does appear to be a small 0.5 cm filling defect at the junction o f the pancreatic head and body concerning for a possible tumor within the pancreatic ductal system. T he SMA and SMV appear to have surrounding fat. The pancreatic margin appears intact. Adrenals: The adrenal glands appear normal. Kidneys: Both kidneys appear normal with symmetric nephrograms and no focal parenchymal abnormalities . There is no hydronephrosis on either side. Retroperitoneum: The aorta is unremarkable. There is no pathologic abdominal lymphadenopathy. CONCLUSION: 1. 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 The pancreatic margin appears intact. Invasion of the surrounding structures is not seen. 2. Dilatation of pancreatic duct including multiple side branches. 3. Multiple hepatic lesions. The hepatic lesions most closely resemble cysts given their signal elmer acteristics and lack of enhancement however several of these demonstrate perilesional enhancement whi ch can be seen with pancreatic metastatic neoplasms. These could be further evaluated with a PET scan . Adenopathy is not seen. Electronically signed by: Tyler Lee MD 03/26/2018 2:33 PM EST
[2018-03-27] MEDS: Morphine Inj 4 MG/ML Vial IV.PUSH PRN ×4 (05:50→20:47)
[2018-03-27] MEDS: Sucralfate 1 GM Tablet PO SCH ×3 (05:50→16:23)
[2018-03-27] MEDS: Senna/Docusate Sodium 8.6/50 MG Tablet PO SCH ×2 (09:05→20:48)
[2018-03-27] MEDS: buPROPion 150 MG 12 HR Tablet PO SCH (09:05)
[2018-03-27] MEDS: FLUoxetine 20 MG Capsule PO SCH (09:05)
[2018-03-27] MEDS: Heparin - SQ 10,000 UNITS/ML Vial SQ SCH (09:06)
[2018-03-27] MEDS: Sodium Chloride 0.9% 2 ML Flush BID IV.FLUSH SCH ×2 (09:07→20:48)
--- NOTE | 2018-03-27 11:01 | P.PNONC ---
Subjective Interval history: Of note, Dr Caputo consult note is currently located on previous visit in chart. Awaiting IT and automotive professional to correct. Please refer to select visit dated to see his consult note. Patient awake and alert. Reports abdominal pain improved with clear liquid diet. Nausea has also improved. Discussed port placement, patient is agreeable, will place order. Objective Vital Signs/Intake & Output: Vital Signs 03/26/18 12:41 03/26/18 16:31 03/26/18 16:44 Temperature 98.6 F 97 F L Pulse Rate 94 H 86 Respiratory Rate 16 16 Blood Pressure 138/65 157/68 H Pulse Oximetry 95 84 L 99 03/26/18 20:00 03/26/18 20:29 03/26/18 23:48 Temperature 98.3 F 98.1 F Pulse Rate 81 85 81 Respiratory Rate 16 16 Blood Pressure 168/74 H 147/90 H Pulse Oximetry 96 97 03/27/18 00:04 03/27/18 04:00 03/27/18 05:00 Temperature Pulse Rate 88 76 81 Respiratory Rate 16 Blood Pressure 126/57 L Pulse Oximetry 95 03/27/18 08:55 Temperature 98.6 F Pulse Rate 80 Respiratory Rate 18 Blood Pressure 126/58 L Pulse Oximetry 96 Intake & Output 03/26/18 03/27/18 03/27/18 18:59 06:59 18:59 Intake Total 1350 / 1350 1240 / 1240 Output Total 1050 / 1050 Balance 1350 / 1350 190 / 190 Weight 69.3 kg Intake: IV 1000 / 1000 1000 / 1000 NS + KCl 20 mEq Inj 1,000 ML @ 1000 / 1000 1000 / 1000 84 mls/hr IV.CONT .[id number] [facility] Rx#:[id number] Oral 350 / 350 240 / 240 Output: Urine 1050 / 1050 Other: # Voids 8 1 Date of Last Bowel Movement 03/25/18 03/25/18 03/25/18 # Bowel Movements 0 Result Diagrams: 03/26/18 05:25 03/26/18 05:25 Laboratory Results: Laboratory Results - last 24 hr 03/26/18 03/26/18 12:58 12:58 Amylase 299 H Carcinoembryonic Ag 8.0 H CA 19-9 Antigen 3206.1 H Imaging Studies: Impressions Abdomen MRI 03/26/18 00:00 CONCLUSION: 1. 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 The pancreatic margin appears intact. Invasion of the surrounding structures is not seen. 2. Dilatation of pancreatic duct including multiple side branches. 3. Multiple hepatic lesions. The hepatic lesions most closely resemble cysts given their signal characteristics and lack of enhancement however several of these demonstrate perilesional enhancement which can be seen with pancreatic metastatic neoplasms. These could be further evaluated with a PET scan. Adenopathy is not seen. Medications: Active Medications Generic Name Dose Route Start Last Admin Trade Name Freq PRN Reason Stop Dose Admin Bupropion HCl 150 mg 03/26/18 10:45 03/27/18 09:05 Wellbutrin Sr PO 150 mg DAILY SHAWNA Administration Fluoxetine HCl 40 mg 03/27/18 09:00 03/27/18 09:05 Prozac PO 40 mg DAILY SHAWNA Administration Heparin Sodium (Porcine) 5,000 units 03/25/18 21:00 03/27/18 09:06 Heparin Inj SQ 5,000 units Q12H SHAWNA Administration Potassium Chloride/Sodium Chloride 1,000 mls @ 84 mls/hr 03/25/18 21:00 03/26 23:50 Ns + Kcl 20 Meq Inj IV.CONT 84 mls/hr .[id number] SHAWNA Administration Morphine Sulfate 4 mg 03/25/18 20:59 03/27/18 05:50 Morphine Inj IV.PUSH 4 mg Q4H PRN Administration pain 6-10 Ondansetron HCl 4 mg 03/25/18 20:58 03/26/18 20:08 Zofran Inj IV.PUSH 4 mg Q6H PRN Administration NAUSEA OR VOMITING Senna/Docusate Sodium 1 tab 03/25/18 21:00 03/27/18 09:05 Claudia-Colace PO 1 tab BID SHAWNA Administration Sodium Chloride 2 ml 03/26/18 09:00 03/27/18 09:07 Ns Flush IV.FLUSH Not Given BID SHAWNA Sodium Chloride 2 ml 03/25/18 21:09 03/26/18 20:10 Ns Flush IV.FLUSH 2 ml PRN PRN Administration FLUSH AFTER USING IV ACCESS Sucralfate 1 gm 03/26/18 11:00 03/27/18 05:50 Carafate PO 1 gm Q6H SHAWNA Administration Objective Remarks: GENERAL: Well-nourished, well-developed female patient, in no acute distress. SKIN: Warm and dry. HEAD: Normocephalic. EYES: No scleral icterus. No injection or drainage. NECK: Supple, trachea midline. CARDIOVASCULAR: Regular rate and rhythm without murmurs. RESPIRATORY: Breath sounds equal bilaterally. No accessory muscle use. GASTROINTESTINAL: Abdomen soft, non-tender, nondistended. EXTREMITIES: No cyanosis, or edema. MUSCULOSKELETAL: Adequate muscle tone. NEUROLOGICAL: No obvious focal deficit. Awake, alert, and oriented x3. PSYCHIATRIC: Appropriate mood and affect; insight and judgment normal. Assessment/Plan - Plan This is a 77-year-old pleasant female patient, recently diagnosed with pancreatic cancer, pending consultation with Dr. Alvarez as an outpatient. She is currently hospitalized with abdominal pain. Recommendations: 1. Pancreatic cancer, newly diagnosed, previously hospitalized at [facility], patient was pending outpatient appointment with Dr. Alvarez. 2. Abdominal pain and nausea, improved with clear liquid diet. 3. MRI abdomen showed:. 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 The pancreatic margin appears intact. Invasion of the surrounding structures is not seen.-- Dilatation of pancreatic duct including multiple side branches.-- -Multiple hepatic lesions. The hepatic lesions most closely resemble cysts given their signal characteristics and lack of enhancement however several of these demonstrate perilesional enhancement which can be seen with pancreatic metastatic neoplasms. These could be further evaluated with a PET scan. Adenopathy is not seen. 4. We will consult IR for port placement. - Attending Statement The exam, history, and the medical decision-making described in the above note were completed with the assistance of the mid-level provider. I reviewed and agree with the findings presented. I attest that I had a [id number] encounter with the patient on the same day, and personally performed and documented my assessment and findings in the medical record. The MRI was discussed with radiology. It is likely that she has metastatic disease to the liver but will need a PET scan. Given the elevated CA-19-9 and the MRI I suspect we are not dealing with a resectable pancreatic cancer limited to the pancreas. For this reason will proceed with port placement and would recommend folforinox chemotherapy following this. Would also recommend that she have a PET scan as soon as possible as an outpatient to answer the question of whether we are dealing with metastatic disease to the liver. The patient would like to follow-up with Dr. Alvarez tomorrow who she originally was going to see. I will communicate this to Dr. Alvarez.
--- NOTE | 2018-03-27 12:23 | P.PN ---
Subjective Interval history: Follow-up pancreatic cancer with metastasis March 26, 2018-patient seen and examined, reports improving abdominal pain along with p.o. intake March 27, 2018-patient seen and examined, reports significant improvement of abdominal pain. Denies shortness of breath. Physical Exam Vital signs: Vital Signs 03/26/18 12:41 03/26/18 16:31 03/26/18 16:44 Temperature 98.6 F 97 F L Pulse Rate 94 H 86 Respiratory Rate 16 16 Blood Pressure 138/65 157/68 H Pulse Oximetry 95 84 L 99 03/26/18 20:00 03/26/18 20:29 03/26/18 23:48 Temperature 98.3 F 98.1 F Pulse Rate 81 85 81 Respiratory Rate 16 16 Blood Pressure 168/74 H 147/90 H Pulse Oximetry 96 97 03/27/18 00:04 03/27/18 04:00 03/27/18 05:00 Temperature Pulse Rate 88 76 81 Respiratory Rate 16 Blood Pressure 126/57 L Pulse Oximetry 95 03/27/18 08:55 Temperature 98.6 F Pulse Rate 80 Respiratory Rate 18 Blood Pressure 126/58 L Pulse Oximetry 96 Intake & Output 03/26/18 03/27/18 03/27/18 18:59 06:59 18:59 Intake Total 1350 / 1350 1240 / 1240 Output Total 1050 / 1050 Balance 1350 / 1350 190 / 190 Weight 69.3 kg Intake: IV 1000 / 1000 1000 / 1000 NS + KCl 20 mEq Inj 1,000 ML @ 1000 / 1000 1000 / 1000 84 mls/hr IV.CONT .[id number] [facility] Rx#:[id number] Oral 350 / 350 240 / 240 Output: Urine 1050 / 1050 Other: # Voids 8 1 Date of Last Bowel Movement 03/25/18 03/25/18 03/25/18 # Bowel Movements 0 Narrative: GENERAL: NAD SKIN: Warm and dry. HEAD: Normocephalic. EYES: No scleral icterus. No injection or drainage. NECK: Supple, trachea midline. No JVD or lymphadenopathy. CARDIOVASCULAR: Regular rate and rhythm without murmurs, gallops, or rubs. RESPIRATORY: Breath sounds equal bilaterally. No accessory muscle use. GASTROINTESTINAL: Abdomen soft, non-tender, nondistended. MUSCULOSKELETAL: No cyanosis, or edema. BACK: Nontender without obvious deformity. No CVA tenderness. Results - Labs CBC & Chem 7: 03/26/18 05:25 03/26/18 05:25 Laboratory Results - last 24 hr 03/26/18 03/26/18 12:58 12:58 Amylase 299 H Carcinoembryonic Ag 8.0 H CA 19-9 Antigen 3206.1 H - Imaging Impressions Abdomen MRI 03/26/18 00:00 CONCLUSION: 1. 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 The pancreatic margin appears intact. Invasion of the surrounding structures is not seen. 2. Dilatation of pancreatic duct including multiple side branches. 3. Multiple hepatic lesions. The hepatic lesions most closely resemble cysts given their signal characteristics and lack of enhancement however several of these demonstrate perilesional enhancement which can be seen with pancreatic metastatic neoplasms. These could be further evaluated with a PET scan. Adenopathy is not seen. Assessment and Plan - Plan 77-year-old female with Newly diagnosed pancreatic cancer with metastasis status post EGD with biopsy on 03/16/[address] of the abdomen/pelvis shows biliary and pancreatic ductal dilation with pancreatic head mass. Also concerning for metastasis in the liver. Oncology consulted, appreciate assistance On Creon, Continue with morphine and Zofran Will need port infuse placement 2. Hypokalemia Resolved status post p.o. and IV repletion 3. Hyperlipidemia On Statin 4. Anxiety/Depression Continue outpatient medications DVT prophylaxis: Bilateral SCDs
[2018-03-28] MEDS: Sucralfate 1 GM Tablet PO SCH ×5 (00:04→22:08)
[2018-03-28] MEDS: Morphine Inj 4 MG/ML Vial IV.PUSH PRN ×4 (00:05→20:47)
[2018-03-28] MEDS ORDERED: Vancomycin Inj 1,000 MG in Sodium Chlor 0.9% Inj 250 ML IV.SIG SCH (09:01)
[2018-03-28] MEDS ORDERED: ceFAZolin 2 GM Premix Inj 2 GM/50 ML PIGGYBACK IV.SIG SCH (09:02)
[2018-03-28] MEDS ORDERED: fentaNYL Citrate Inj 250 MCG/5 ML Ampul ONE (09:26)
[2018-03-28] MEDS ORDERED: ceFAZolin 1 GM Premix Inj 2 GM/100 ML FROZ.PIGGY IV.SIG ONE (10:09)
[2018-03-28] MEDS ORDERED: Lidocaine 1%/Epinephrine 1:100,000 Inj 30 ML Vial ONE (10:18)
[2018-03-28] MEDS ORDERED: *Heparin Central Flush 100 UNIT/ML 5 ML Vial PERIprocedural ONLY IV.FLUSH ONE (10:29)
--- NOTE | 2018-03-28 11:00 | P.RAD ---
Post Procedure Progress Note - Procedure Information Procedure Date: 03/28/18 Supervising Radiologist: RIMA Marcano Assisting Physician: Kelton Caba Estimated blood loss (mL): 1 Anesthesia: Local - Plan of Activity Patient to Unit: [facility] Patient Condition: Good Additional Comments: A right port placement procedure was successfully performed without any complications or difficulty. Patient tolerated the procedure well. See PACS Report for procedural detail/treatment.
--- NOTE | 2018-03-28 12:12 | P.PN ---
Subjective Interval history: Follow-up pancreatic cancer with metastasis March 28, 2018-patient seen and examined; no significant abdominal pain. Plan for pleural effusion placement today. Afebrile this morning. Physical Exam Vital signs: Vital Signs 03/27/18 16:26 03/27/18 19:42 03/28/18 00:00 Temperature 98.9 F 97.6 F 97.9 F Pulse Rate 85 83 78 Respiratory Rate 16 16 16 Blood Pressure 161/68 H 143/67 H 132/62 Pulse Oximetry 95 95 98 03/28/18 04:00 03/28/18 09:41 03/28/18 11:10 Temperature 98.0 F 98.3 F 97.4 F L Pulse Rate 106 H 93 H 89 Respiratory Rate 18 16 16 Blood Pressure 137/68 133/60 147/87 H Pulse Oximetry 97 98 93 L 03/28/18 11:25 03/28/18 11:40 03/28/18 11:42 Temperature 98.1 F 98.1 F Pulse Rate 90 Respiratory Rate 16 Blood Pressure 129/68 129/68 Pulse Oximetry 96 98 Intake & Output 03/27/18 03/28/18 03/28/18 18:59 06:59 18:59 Intake Total 1930 / 1930 1480 / 1480 350 / 350 Output Total 1000 / 1000 2500 / 2500 Balance 930 / 930 -1020 / -1020 350 / 350 Weight 69 kg Intake: IV 1000 / 1000 1000 / 1000 350 / 350 NS + KCl 20 mEq Inj 1,000 ML @ 1000 / 1000 1000 / 1000 84 mls/hr IV.CONT .[id number] [facility] Rx#:[id number] Vancomycin Inj 1,000 MG In NS 250 / 250 Inj 250 ML @ 250 mls/hr IV.SIG [employer] [facility] Rx#:[id number] Ancef 1 GM Premix Inj 2 gm In 100 / 100 100 ml @ 0 mls/hr IV.SIG .STK- MED [facility] Rx#:[id number] Oral 930 / 930 480 / 480 Output: Urine 1000 / 1000 2500 / 2500 Other: Date of Last Bowel Movement 03/25/18 03/25/18 Narrative: GENERAL: NAD SKIN: Warm and dry. HEAD: Normocephalic. EYES: No scleral icterus. No injection or drainage. NECK: Supple, trachea midline. No JVD or lymphadenopathy. CARDIOVASCULAR: Regular rate and rhythm without murmurs, gallops, or rubs. RESPIRATORY: Breath sounds equal bilaterally. No accessory muscle use. GASTROINTESTINAL: Abdomen soft, non-tender, nondistended. MUSCULOSKELETAL: No cyanosis, or edema. BACK: Nontender without obvious deformity. No CVA tenderness. Results - Labs CBC & Chem 7: 03/26/18 05:25 03/26/18 05:25 Assessment and Plan - Plan 77-year-old female with Newly diagnosed pancreatic cancer with metastasis status post EGD with biopsy on 03/16/[address] of the abdomen/pelvis shows biliary and pancreatic ductal dilation with pancreatic head mass. Also concerning for metastasis in the liver. Oncology consulted, appreciate assistance. Patient will need chemotherapy with Folforinox. PET scan outpatient. Tumor not surgically resectable On Creon, Continue with morphine and Zofran Plan for port infuse placement today March 28, 2018 2. Hypokalemia Resolved status post p.o. and IV repletion 3. Hyperlipidemia On Statin 4. Anxiety/Depression Continue outpatient medications DVT prophylaxis: Bilateral SCDs
--- NOTE | 2018-03-28 12:25 | IR ---
EXAM DATE: 03/28/2018 11:06 AM EST AGE/SEX: 77 years / Female INDICATIONS: Patient with a history of pancreatic cancer. CLINICAL DATA: This is the patient's initial encounter. Patient reports that signs and symptoms have been present for 2 days and indicates a pain score of 0/10. MEDICAL/SURGICAL HISTORY: Carcinoma, breast. HyperlipidemiaPancreatic cancer Appendectomy. Lum pectomyLymph node dissection of axilla. COMPARISON: No prior exams available for comparison. FLUORO TIME (min): 0.3 IMAGE SERIES: 1 SEDATION TIME (min): 30 MEDICATION(S): 2mg midazolam (Versed) IV 100mcg fentanyl (Sublimaze) IV Vancomycin within 2 hrs of procedure, Ancef (or alternative) within 1 hr of procedure. DEVICE(S): Right Infusaport . . PROCEDURE : 1. Continuous pulse oximetry and EKG monitoring. 2. Intravenous conscious sedation. 3. Ultrasound guidance for venous access. 4. Fluoroscopic guided implantable central venous port placement. The patient was placed supine. The neck was prepped in sterile fashion. Full sterile technique was u sed, including cap, mask, sterile gloves and gown, and a large sterile sheet. Hand hygiene and 2% ch lorhexidine Betadine was utilized per protocol for cutaneous antisepsis with appropriate dry time for site. Sterile gel and sterile probe cover were utilized for ultrasound guidance. The skin and sub cutaneous tissues were infiltrated with local anesthetic solution. Under direct ultrasound guidance, central venous access was accomplished in the targeted vessel. The ultrasound images depicting access guidance were stored and saved to PACS for permanent record. A s ubcutaneous pocket was created using blunt dissection. The port was introduced to the pocket. The c atheter tubing was fed through a subcutaneous tunnel to the venotomy site. The catheter tubing was c ut to a suitable length and then was introduced through a valved Peel-Away sheath and positioned with catheter tubing tip at the cavo-atrial junction level. The pocket incision was closed with subcutic ular Vicryl suture. Steri-Strips were applied. The port was flushed and locked with heparin solutio n per protocol. Sterile dressing was applied to the site. The patient tolerated the procedure well. Conscious sedation was performed with the prescribed dosages and duration as above in the presence of an independent trained radiology nurse to assist in the monitoring of the patient. EKG and oximetry remained stable throughout the procedure. The patient tolerated the procedure well and there were no complications. The patient was sent to post anesthesia recovery in stable condition. CONCLUSION: 1. Uncomplicated ultrasound and fluoroscopic guided implanted central venous port catheter placement as described in detail above. An 8 [place] Power port was placed. Electronically signed by: Kelton Caba MD 03/28/2018 12:23 PM EST
[2018-03-28] MEDS: Sodium Chloride 0.9% 2 ML Flush BID IV.FLUSH SCH ×2 (13:00→20:15)
[2018-03-28] MEDS: Senna/Docusate Sodium 8.6/50 MG Tablet PO SCH ×2 (13:01→20:15)
[2018-03-28] MEDS: buPROPion 150 MG 12 HR Tablet PO SCH (13:01)
[2018-03-28] MEDS: FLUoxetine 20 MG Capsule PO SCH (13:24)
--- NOTE | 2018-03-28 15:02 | P.PNONC ---
Subjective Interval history: Patient lying in bed, currently eating a popsicle. She is status post port placement today. RN notified me that her O2 saturation was 86% on room air, she is currently on 2 L. She denies home oxygen. She does have dark nail tunisian on which could have skewed the reading. Patient denies any shortness of breath. Remains with left-sided abdominal tenderness. Objective Vital Signs/Intake & Output: Vital Signs 03/27/18 16:26 03/27/18 19:42 03/28/18 00:00 Temperature 98.9 F 97.6 F 97.9 F Pulse Rate 85 83 78 Respiratory Rate 16 16 16 Blood Pressure 161/68 H 143/67 H 132/62 Pulse Oximetry 95 95 98 03/28/18 04:00 03/28/18 09:41 03/28/18 11:10 Temperature 98.0 F 98.3 F 97.4 F L Pulse Rate 106 H 93 H 89 Respiratory Rate 18 16 16 Blood Pressure 137/68 133/60 147/87 H Pulse Oximetry 97 98 93 L 03/28/18 11:25 03/28/18 11:40 03/28/18 11:42 Temperature 98.1 F 98.1 F Pulse Rate 90 Respiratory Rate 16 Blood Pressure 129/68 129/68 Pulse Oximetry 96 98 03/28/18 11:55 03/28/18 12:53 Temperature 98.5 F Pulse Rate 75 92 H Respiratory Rate 16 16 Blood Pressure 123/50 L 129/74 Pulse Oximetry 98 97 Intake & Output 03/27/18 03/28/18 03/28/18 18:59 06:59 18:59 Intake Total 1930 / 1930 1480 / 1480 350 / 350 Output Total 1000 / 1000 2500 / 2500 Balance 930 / 930 -1020 / -1020 350 / 350 Weight 69 kg Intake: IV 1000 / 1000 1000 / 1000 350 / 350 NS + KCl 20 mEq Inj 1,000 ML @ 1000 / 1000 1000 / 1000 0 / 0 84 mls/hr IV.CONT .[id number] [facility] Rx#:[id number] Vancomycin Inj 1,000 MG In NS 250 / 250 Inj 250 ML @ 250 mls/hr IV.SIG [facility] Rx#:[id number] Ancef 1 GM Premix Inj 2 gm In 100 / 100 100 ml @ 0 mls/hr IV.SIG .STK- [facility] Rx#:[id number] Oral 930 / 930 480 / 480 Output: Urine 1000 / 1000 2500 / 2500 Other: Date of Last Bowel Movement 03/25/18 03/25/18 Result Diagrams: 03/26/18 05:25 03/26/18 05:25 Imaging Studies: Impressions Port Line Insertion 03/28/18 00:00 CONCLUSION: 1. Uncomplicated ultrasound and fluoroscopic guided implanted central venous port catheter placement as described in detail above. An 8 Thai Power port was placed. Medications: Active Medications Generic Name Dose Route Start Last Admin Trade Name Freq PRN Reason Stop Dose Admin Bupropion HCl 150 mg 03/26/18 10:45 03/28/18 13:01 Wellbutrin Sr PO 150 mg DAILY [facility] Administration Fluoxetine HCl 40 mg 03/27/18 09:00 03/28/18 13:24 Prozac PO 40 mg DAILY [facility] Administration Heparin Sodium (Porcine) 5,000 units 03/25/18 21:00 03/27/18 09:06 Heparin Inj SQ 5,000 units Q12H [facility] Administration Potassium Chloride/Sodium Chloride 1,000 mls @ 84 mls/hr 03/25/18 21:00 03/28 13:00 Ns + Kcl 20 Meq Inj IV.CONT 84 mls/hr .[id number] [facility] Administration Vancomycin HCl 1,000 mg/ 250 mls @ 250 mls/hr 03/28/18 09:01 03/28/18 11:14 Sodium Chloride IV.SIG 03/31/18 09:01 Infused CR[facility]OWER [facility] Infusion Morphine Sulfate 4 mg 03/25/18 20:59 03/28/18 05:41 Morphine Inj IV.PUSH 4 mg Q4H PRN Administration pain 6-10 Ondansetron HCl 4 mg 03/25/18 20:58 03/26/18 20:08 Zofran Inj IV.PUSH 4 mg Q6H PRN Administration NAUSEA OR VOMITING Senna/Docusate Sodium 1 tab 03/25/18 21:00 03/28/18 13:01 Claudia-Colace PO 1 tab BID [facility] Administration Sodium Chloride 2 ml 03/26/18 09:00 03/28/18 13:00 Ns Flush IV.FLUSH 2 ml BID [facility] Administration Sodium Chloride 2 ml 03/25/18 21:09 11/24/18 20:10 Ns Flush IV.FLUSH 2 ml PRN PRN Administration FLUSH AFTER USING IV ACCESS Sucralfate 1 gm 03/26/18 11:00 03/28/18 13:01 Carafate PO 1 gm Q6H [facility] Administration Objective Remarks: GENERAL: Well-nourished, well-developed female patient, in no acute distress. SKIN: Warm and dry. HEAD: Normocephalic. EYES: No scleral icterus. No injection or drainage. NECK: Supple, trachea midline. CARDIOVASCULAR: Regular rate and rhythm without murmurs. RESPIRATORY: Breath sounds equal bilaterally. No accessory muscle use. GASTROINTESTINAL: Abdomen soft, LLQ tender, nondistended. EXTREMITIES: No cyanosis, or edema. MUSCULOSKELETAL: Adequate muscle tone. NEUROLOGICAL: No obvious focal deficit. Awake, alert, and oriented x3. PSYCHIATRIC: Appropriate mood and affect; insight and judgment normal. Assessment/Plan - Plan This is a 77-year-old pleasant female patient, recently diagnosed with pancreatic cancer, pending consultation with Dr. Alvarez as an outpatient. She is currently hospitalized with abdominal pain. Recommendations: 1. Pancreatic cancer, newly diagnosed, previously hospitalized at [facility], patient was pending outpatient appointment with Dr. Alvarez. Obtained pathology report: Pancreatic mass/duodenal wall endoscopic biopsy: Invasive adenocarcinoma invading into duodenal wall. Small bowel type mucosa with gastric type metaplasia, consistent with peptic duodenitis. Pancreas, pancreatic head mass, fine-needle aspiration: Invasive adenocarcinoma.GAT A3 positive. Mammaglobin negative, CK20 negative. 2. Abdominal pain and nausea, improved with clear liquid diet. 3. Reported decreased oxygen saturation on room air, recommend walk test prior to discharge. 4. Status post port placement today. 5. Anticipate likely discharge home tomorrow. Will order outpatient PET scan. Patient's information sent to new patient referrals. - Attending Statement The exam, history, and the medical decision-making described in the above note were completed with the assistance of the mid-level provider. I reviewed and agree with the findings presented. I attest that I had a [id number] encounter with the patient on the same day, and personally performed and documented my assessment and findings in the medical record. 77 yoF with likely metastatic pancreatic cancer. s/p port placement. Will need to initiate chemotherapy and PET outpatient.
[2018-03-28 21:16] VITALS: RESP 18
[2018-03-29] MEDS ORDERED: Zolpidem Tartrate 5 MG Tablet PO ONE (02:28)
[2018-03-29] MEDS: Sucralfate 1 GM Tablet PO SCH ×2 (04:54→11:22)
[2018-03-29] MEDS: Morphine Inj 4 MG/ML Vial IV.PUSH PRN (08:53)
[2018-03-29] MEDS: Sodium Chloride 0.9% 2 ML Flush BID IV.FLUSH SCH (08:54)
[2018-03-29] MEDS: Senna/Docusate Sodium 8.6/50 MG Tablet PO SCH (08:54)
[2018-03-29] MEDS: buPROPion 150 MG 12 HR Tablet PO SCH (08:54)
[2018-03-29] MEDS: FLUoxetine 20 MG Capsule PO SCH (08:54)
--- NOTE | 2018-03-29 10:04 | P.PN ---
Subjective Interval history: Follow-up pancreatic cancer with metastasis March 28, 2018-patient seen and examined; no significant abdominal pain. Plan for pleural effusion placement today. Afebrile this morning. March 29, 2018-patient seen and examined, reports some left lower quadrant tenderness but states it is stable. Reports also some nausea this morning however patient would like her diet advanced prior to discharge. Physical Exam Vital signs: Vital Signs 03/28/18 11:10 03/28/18 11:25 03/28/18 11:40 Temperature 97.4 F L 98.1 F Pulse Rate 89 90 Respiratory Rate 16 16 Blood Pressure 147/87 H 129/68 Pulse Oximetry 93 L 96 98 03/28/18 11:42 03/28/18 11:55 03/28/18 12:53 Temperature 98.1 F 98.5 F Pulse Rate 75 92 H Respiratory Rate 16 16 Blood Pressure 129/68 123/50 L 129/74 Pulse Oximetry 98 97 03/28/18 17:34 03/28/18 20:00 03/28/18 23:57 Temperature 99.3 F 98.1 F 98.6 F Pulse Rate 98 H 84 90 Respiratory Rate 16 18 18 Blood Pressure 156/73 H 155/73 H 146/69 H Pulse Oximetry 99 98 98 03/29/18 00:00 03/29/18 02:55 03/29/18 03:02 Temperature 98.5 F Pulse Rate 87 81 84 Respiratory Rate 18 Blood Pressure 153/70 H Pulse Oximetry 98 03/29/18 07:00 03/29/18 09:00 Temperature 98.7 F Pulse Rate 95 H 81 Respiratory Rate 18 Blood Pressure 145/69 H Pulse Oximetry 93 L Intake & Output 03/28/18 03/29/18 03/29/18 18:59 06:59 18:59 Intake Total 2160 / 2160 1480 / 1480 Output Total 2700 / 2700 2300 / 2300 Balance -540 / -540 -820 / -820 Weight 67.4 kg Intake: IV 350 / 350 1000 / 1000 NS + KCl 20 mEq Inj 1,000 ML @ 0 / 0 1000 / 1000 84 mls/hr IV.CONT .[id number] [facility] Rx#:[id number] Vancomycin Inj 1,000 MG In NS 250 / 250 Inj 250 ML @ 250 mls/hr IV.SIG [employer]ICIAN INVESTIGATOR [facility] Rx#:[id number] Ancef 1 GM Premix Inj 2 gm In 100 / 100 100 ml @ 0 mls/hr IV.SIG .STK- [facility] Rx#:[id number] Oral 1810 / 1810 480 / 480 Output: Urine 2700 / 2700 2300 / 2300 Other: Date of Last Bowel Movement 03/25/18 03/25/18 03/29/18 # Bowel Movements 0 Narrative: GENERAL: NAD SKIN: Warm and dry. HEAD: Normocephalic. EYES: No scleral icterus. No injection or drainage. NECK: Supple, trachea midline. No JVD or lymphadenopathy. CARDIOVASCULAR: Regular rate and rhythm without murmurs, gallops, or rubs. Port infusion in place right anterior chest RESPIRATORY: Breath sounds equal bilaterally. No accessory muscle use. GASTROINTESTINAL: Abdomen soft, non-tender, nondistended. +BS MUSCULOSKELETAL: No cyanosis, or edema. BACK: Nontender without obvious deformity. No CVA tenderness. Results - Labs CBC & Chem 7: 03/26/18 05:25 03/26/18 05:25 - Imaging Impressions Port Line Insertion 03/28/18 00:00 CONCLUSION: 1. Uncomplicated ultrasound and fluoroscopic guided implanted central venous port catheter placement as described in detail above. An 8 [place] Power port was placed. - Procedures Port infusion placement March 28, 2018 Assessment and Plan - Plan 77-year-old female with Newly diagnosed pancreatic cancer with metastasis status post EGD with biopsy on 03/16/[address] of the abdomen/pelvis shows biliary and pancreatic ductal dilation with pancreatic head mass. Also concerning for metastasis in the liver. Oncology consulted, appreciate assistance. Patient will need chemotherapy with Folforinox and PET scan outpatient. Tumor not surgically resectable On Creon, Continue with morphine and Zofran s/p port infuse placement March 28, 2018 ADAT 2. Hypokalemia Resolved status post p.o. and IV repletion 3. Hyperlipidemia On Statin 4. Anxiety/Depression Continue outpatient medications DVT prophylaxis: Bilateral SCDs
--- NOTE | 2018-03-29 10:08 | P.DS ---
Date of admission: 03/25/18 19:36 Primary care physician: No Primary Care Physician Brief History from admission: 77-year-old female with past medical history is for recently diagnosed pancreatic cancer, hyperlipidemia and history of breast cancer presents to the emergency department for the evaluation of progressively worsening epigastric abdominal pain. The patient reports that for the past week she has had nausea and vomiting with worsening abdominal pain. Her pain is aggravated by food. She reports associated anorexia. She had an EGD on 03/16/[address] Manning and per the patient, reports biopsy-proven pancreatic cancer. She is supposed to follow-up with Dr. Alvarez as an outpatient however has not yet been evaluated. She denies any fever/chills. No chest pain or shortness of breath. No focal neurologic deficits. DS: Summary Hospital Course: While in hospital, patient was treated for: Newly diagnosed pancreatic cancer with metastasis status post EGD with biopsy on 03/16/[address] of the abdomen/pelvis shows biliary and pancreatic ductal dilation with pancreatic head mass. Also concerning for metastasis in the liver. Oncology consulted, appreciate assistance. Patient will need chemotherapy with Folforinox and PET scan outpatient. Tumor not surgically resectable She Was treated with morphine and Zofran s/p port infuse placement March 28, 2018 2. Hypokalemia Resolved status post p.o. and IV repletion 3. Hyperlipidemia Statin was resumed 4. Anxiety/Depression Outpatient medications were resumed DVT prophylaxis: Bilateral SCDs - Time Spent with Patient Total time spent providing and/or coordinating discharge services: Less than 30 minutes - Quality: VTE Deep Vein Thrombosis/Pulmonary Embolism Present on Admission: No Exam Vital signs: Vital Signs 03/28/18 11:10 03/28/18 11:25 03/28/18 11:40 Temperature 97.4 F L 98.1 F Pulse Rate 89 90 Respiratory Rate 16 16 Blood Pressure 147/87 H 129/68 Pulse Oximetry 93 L 96 98 03/28/18 11:42 03/28/18 11:55 03/28/18 12:53 Temperature 98.1 F 98.5 F Pulse Rate 75 92 H Respiratory Rate 16 16 Blood Pressure 129/68 123/50 L 129/74 Pulse Oximetry 98 97 03/28/18 17:34 03/28/18 20:00 03/28/18 23:57 Temperature 99.3 F 98.1 F 98.6 F Pulse Rate 98 H 84 90 Respiratory Rate 16 18 18 Blood Pressure 156/73 H 155/73 H 146/69 H Pulse Oximetry 99 98 98 03/29/18 00:00 03/29/18 02:55 03/29/18 03:02 Temperature 98.5 F Pulse Rate 87 81 84 Respiratory Rate 18 Blood Pressure 153/70 H Pulse Oximetry 98 03/29/18 07:00 03/29/18 09:00 Temperature 98.7 F Pulse Rate 95 H 81 Respiratory Rate 18 Blood Pressure 145/69 H Pulse Oximetry 93 L Intake & Output 03/28/18 03/29/18 03/29/18 18:59 06:59 18:59 Intake Total 2160 / 2160 1480 / 1480 Output Total 2700 / 2700 2300 / 2300 Balance -540 / -540 -820 / -820 Weight 67.4 kg Intake: IV 350 / 350 1000 / 1000 NS + KCl 20 mEq Inj 1,000 ML @ 0 / 0 1000 / 1000 84 mls/hr IV.CONT .[id number] [facility] Rx#:[id number] Vancomycin Inj 1,000 MG In NS 250 / 250 Inj 250 ML @ 250 mls/hr IV.SIG GEAR HOBBER [facility] Rx#:[id number] Ancef 1 GM Premix Inj 2 gm In 100 / 100 100 ml @ 0 mls/hr IV.SIG .[facility]- [facility] Rx#:[id number] Oral 1810 / 1810 480 / 480 Output: Urine 2700 / 2700 2300 / 2300 Other: Date of Last Bowel Movement 03/25/18 03/25/18 03/29/18 # Bowel Movements 0 Narrative: GENERAL: NAD SKIN: Warm and dry. HEAD: Normocephalic. EYES: No scleral icterus. No injection or drainage. NECK: Supple, trachea midline. No JVD or lymphadenopathy. CARDIOVASCULAR: Regular rate and rhythm without murmurs, gallops, or rubs. Port infusion in place right anterior chest RESPIRATORY: Breath sounds equal bilaterally. No accessory muscle use. GASTROINTESTINAL: Abdomen soft, non-tender, nondistended. +BS MUSCULOSKELETAL: No cyanosis, or edema. BACK: Nontender without obvious deformity. No CVA tenderness. Results Procedures completed during hospitalization: Port infusion placement March 28, 2018 - Impressions ITS Impressions Abdomen/Pelvis CT 03/25/18 15:50 CONCLUSION: 1. Biliary and pancreatic ductal dilatation. An apparent vague low-density mass of the pancreatic head estimated at 2.6 cm in size. 2. Scattered low-density lesions of the liver of concern for metastases. These measure up to 1.6 cm in size. No other evidence of metastatic disease. 3. Lobulated fibroid uterus. 4. No acute abnormality seen of the alimentary tract. Chest X-Ray 03/25/18 15:50 CONCLUSION: No evidence of acute cardiopulmonary process. Abdomen MRI 03/26/18 00:00 CONCLUSION: 1. 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 The pancreatic margin appears intact. Invasion of the surrounding structures is not seen. 2. Dilatation of pancreatic duct including multiple side branches. 3. Multiple hepatic lesions. The hepatic lesions most closely resemble cysts given their signal characteristics and lack of enhancement however several of these demonstrate perilesional enhancement which can be seen with pancreatic metastatic neoplasms. These could be further evaluated with a PET scan. Adenopathy is not seen. Port Line Insertion 03/28/18 00:00 CONCLUSION: 1. Uncomplicated ultrasound and fluoroscopic guided implanted central venous port catheter placement as described in detail above. An 8 [employer] Power port was placed. Discharge Plan - Discharge Disposition Patient Disposition: 01 Discharge Home - Discharge Condition Condition: Fair - Discharge Order Discharge Orders: Discharge Order (Routine); Ordered 03/29/18 Ordered By: Oskar Carvajal - Physicians Team Primary Care Provider: Primary Care Physici,No Attending Provider: Oskar Carvajal Other Providers: Ronda Alvarez
[2018-03-29 11:22] VITALS: BP 122/60; PULSE 84; TEMP 98.6
[2018-03-29 12:27] VITALS: O2SAT 92
== END 2018-03-29 14:45 | disposition home or self-care (01) ==
LOC: NEPC 10:48 → NEDA 19:36 → HCIN 21:40
PROVIDERS: ADMIT Hospitalist; ATTEND Hospitalist

== ENCOUNTER 2018-04-14 14:03 | Inpatient (IN) ==
[2018-04-14] MEDS ORDERED: Bisacodyl 10 MG Supp RECTAL PRN (15:28)
[2018-04-14] MEDS ORDERED: Naloxone Inj 0.4 MG/ML Vial IV.PUSH PRN (15:37)
--- NOTE | 2018-04-14 15:50 | P.HPIM ---
History of Present Illness Primary Care Physician: UNKNOWN History of Present Illness: This is a 77-year-old female with a history of hyperlipidemia, left breast cancer status post chemotherapy and radiation and recently diagnosed metastatic pancreatic cancer to the liver. She underwent port placement and PET scan. She had a follow-up visit with her oncologist today to discuss initiation of chemotherapy when she was noted to be jaundiced. Her has noticed that she was for the past 2 days but did not say anything to her. She reports of continued nausea, anorexia and intermittent abdominal pain relieved with oxycodone. When she was hospitalized over 2 weeks ago, underwent abdominal CT and MRI which showed biliary and pancreatic ductal dilatation and pancreatic head mass. I have been requested by Dr. Ronda Alvarez to directly admit the patient. Also has abnormal liver function tests with total bilirubin 7.2, AST of 163, ALT of 282 and alkaline phosphatase of 374. All other systems reviewed negative Inpatient Certification Inpatient Certification: I certify that the inpatient services were ordered in accordance with Medicare regulations governing the order. This includes certification that hospital inpatient services are reasonable and necessary and in the case of services not specified as inpatient-only under 42 CFR 419.22(n), that they are appropriately provided as inpatient services in accordance to with the 2-midnight benchmark under 43 CFR 412.3(e) Review of Systems Review of Systems: all other systems reviewed are negative [facility] Medical History Medical History History of breast cancer (Acute) Hyperlipidemia (Acute) Pancreatic cancer (Acute) Surgical History Surgical History History of appendectomy (Acute) History of lumpectomy (Acute) History of lymph node dissection of axilla (Acute) Family History Family History Other Pancreatic cancer Social History Social History Substance History: No History of Abuse Second Hand Smoke Exposure: No Smoking Status: Never smoker How Often Do You Have a Drink Containing Alcohol: Never Medications and Allergies Allergies Allergy/AdvReac Type Severity Reaction Status Date / Time No Known Allergies Allergy Verified 03/25/18 11:28 Home Medications Medication Instructions Recorded Confirmed Type bupropion HCl [Wellbutrin XL] 150 mg PO QAM 03/25/18 04/14/18 History fluoxetine 40 mg PO DAILY 03/25/18 04/14/18 History ezmibs-eagwztzu-coitphy [Zenpep] PO QID 03/25/18 History simvastatin 20 mg PO QPM 03/25/18 04/14/18 History sucralfate 1 g PO Q6H 03/25/18 04/14/18 History trazodone 50 mg PO DAILY 03/25/18 04/14/18 History oxycodone 5 mg PO Q4-6H PRN 04/14/18 04/14/18 History Active Medications: Active Medications Al Hydroxide/Mg Hydroxide (Milk Of Magnesia Liq) 30 ml PO Q12H PRN PRN Reason: Mild Constipation Bisacodyl (Dulcolax Supp) 10 mg RECTAL DAILY PRN PRN Reason: SEVERE CONSITIPATION Lactulose (Lactulose Liq) 30 ml PO DAILY PRN PRN Reason: SEVERE CONSITIPATION Morphine Sulfate (Morphine Inj) 1 mg IV.PUSH Q3H PRN PRN Reason: BREAKTHROUGH PAIN Naloxone HCl (Narcan Inj) 0.4 mg IV.PUSH UNSCH PRN PRN Reason: SEE LABEL COMMENTS Ondansetron HCl (Zofran Inj) 4 mg IV.PUSH Q6H PRN PRN Reason: NAUSEA OR VOMITING Oxycodone HCl (Roxicodone) 5 mg PO Q4H PRN PRN Reason: PAIN SCALE 3 TO 5 Oxycodone HCl (Roxicodone) 10 mg PO Q4H PRN PRN Reason: PAIN SCALE 6 TO 10 Senna/Docusate Sodium (Claudia-Colace) 1 tab PO BID [facility] Sennosides (Senokot) 17.2 mg PO Q12H PRN PRN Reason: Moderate Constipation Sodium Chloride (Ns Flush) 2 ml IV.FLUSH BID [facility] Sodium Chloride (Ns Flush) 2 ml IV.FLUSH PRN PRN PRN Reason: FLUSH AFTER USING IV ACCESS Physical Exam Vital signs: Blood pressure 136/76 heart rate of 76 respiratory rate 16 temperature 98.3 Narrative: GENERAL: Well-developed, well-nourished adult female who looks weak SKIN: Warm and dry. HEAD: Atraumatic. Normocephalic. EYES: Pupils equal and round. +scleral icterus. No injection or drainage. ENT: No nasal bleeding or discharge. Mucous membranes pink and moist. NECK: Trachea midline. No JVD. CARDIOVASCULAR: Regular rate and rhythm. RESPIRATORY: No accessory muscle use. Clear to auscultation. Breath sounds equal bilaterally. GASTROINTESTINAL: Abdomen soft, non-tender, nondistended. MUSCULOSKELETAL: Extremities without clubbing, cyanosis, or edema. No obvious deformities. NEUROLOGICAL: Awake and alert. No obvious cranial nerve deficits. Motor grossly within normal limits. Five out of 5 muscle strength in the arms and legs. Normal speech. PSYCHIATRIC: Appropriate mood and affect; insight and judgment normal. Results Labs Labs: white count of 5.5 hemoglobin 10.2 platelet count of 307 CMP remarkable for a potassium 3.3 and as previously mentioned in the HPI Caprini VTE Risk Assessment Caprini VTE Risk Assessment: Moderate/High Risk (score >= 2) Caprini Risk Assessment Model: Point Value = 1 Point Value = 2 Point Value = 3 Point Value = 5 Age 41-60 Minor surgery BMI > 25 kg/m2 Swollen legs Varicose veins or History of unexplained or recurrent spontaneous Oral contraceptives or hormone replacement Sepsis (< 1 month) Serious lung disease, including pneumonia (< 1 month) Abnormal pulmonary function Acute myocardial infarction Congestive heart failure (< 1 month) History of inflammatory bowel disease Medical patient at bed rest Age 61-74 Arthroscopic surgery Major open surgery (> 45 min) Laparoscopic surgery (> 45 min) Malignancy Confined to bed (> 72 hours) Immobilizing plaster cast Central venous access Age >= 75 History of VTE Family history of VTE Factor V Leiden Prothrombin [id number] Lupus anticoagulant Anticardiolipin antibodies Elevated serum homocysteine Heparin-induced thrombocytopenia Other congenital or acquired thrombophilia Stroke (< 1 month) Elective arthroplasty Hip, pelvis, or leg fracture Acute spinal cord injury (< 1 month) Prophylaxis Regimen: Total Risk Factor Score Risk Level Prophylaxis Regimen 0-1 Low Early ambulation 2 Moderate Order ONE of the following: *Sequential Compression Device (SCD) *Heparin 5000 units SQ BID 3-4 Higher Order ONE of the following medications: *Heparin 5000 units SQ TID *Enoxaparin/Lovenox 40 mg SQ daily (WT < 150 kg, CrCl > 30 mL/min) *Enoxaparin/Lovenox 30 mg SQ daily (WT < 150 kg, CrCl > 10-29 mL/min) *Enoxaparin/Lovenox 30 mg SQ BID (WT < 150 kg, CrCl > 30 mL/min) AND/OR *Sequential Compression Device (SCD) 5 or more Highest Order ONE of the following medications: *Heparin 5000 units SQ TID (Preferred with Epidurals) *Enoxaparin/Lovenox 40 mg SQ daily (WT < 150 kg, CrCl > 30 mL/min) *Enoxaparin/Lovenox 30 mg SQ daily (WT < 150 kg, CrCl > 10-29 mL/min) *Enoxaparin/Lovenox 30 mg SQ BID (WT < 150 kg, CrCl > 30 mL/min) AND *Sequential Compression Device (SCD) Assessment and Plan Plan This is a 77-year-old female with a history of hyperlipidemia, left breast cancer status post chemotherapy and radiation and recently diagnosed metastatic pancreatic cancer to the liver s/p port placement and PET scan. She was sent from her oncologist clinic because of jaundice . Obstructive jaundice in a patient with a history of metastatic pancreatic cancer to the liver. Recent abdominal CT and MRI showed biliary and pancreatic ductal dilatation. Discussed with patient's oncologist, will obtain MRCP and consult patient's analog device designer will likely need stenting. Will feed patient today and n.p.o. post midnight. Avoid hepatotoxins. Pain management with oxycodone and IV morphine counseled regarding narcotics Hypokalemia. Replace with 40 mEq potassium. Obtain magnesium level. Repeat BMP in the morning Nursing to update medication list DVT prophylaxis with SCD and early ambulation e
[2018-04-14 17:01] LABS: Baso % (Auto) 0.7 % (0.0-2.0); Eos # (Auto) 0.2 th/mm3 (0.0-0.4); Hematocrit 29.5 % (35.0-46.0); Hemoglobin 9.5 gm/dL (11.6-15.3); Lymph % (Auto) 20.5 % (9.0-44.0); Mean Corpuscular HGB Conc 32.4 % (32.0-36.0); Mean Corpuscular Hemoglobin 31.6 pg (27.0-34.0); Mean Corpuscular Volume 97.7 fL (80.0-100.0); Mean Platelet Volume 8.3 fL (7.0-11.0); Mono # (Auto) 0.7 th/mm3 (0.0-0.9); Neut % (Auto) 60.8 % (16.0-70.0); Platelet Count 229 th/mm3 (150-450); Red Blood Count 3.02 mil/mm3 (4.00-5.30); Red Cell Distribution Width 13.4 % (11.6-17.2)
[2018-04-14 17:29] LABS: Albumin 2.8 g/dL (3.4-5.0); Anion Gap 6 meq/L (5-15); Aspartate Aminotransferase 139 U/L (15-37); Blood Urea Nitrogen 21 mg/dL (7-18); Calcium 8.1 mg/dL (8.5-10.1); Chloride 106 meq/L (98-107); Glomerular Filtration Rate 73 mL/min (>89); Glucose,Random 142 mg/dL (74-106); Potassium 3.3 meq/L (3.5-5.1); Sodium 140 meq/L (136-145)
[2018-04-14 17:32] LABS: Alanine Aminotransferase 260 U/L (10-53); Alkaline Phosphatase 357 U/L (45-117); Total Protein 6.2 g/dL (6.4-8.2)
[2018-04-14] MEDS: buPROPion 150 MG 12 HR Tablet PO SCH (17:41)
[2018-04-14] MEDS: Sucralfate 1 GM Tablet PO SCH ×2 (17:45→23:46)
--- NOTE | 2018-04-14 17:46 | P.CON ---
History of Present Illness Service: oncology Consult date: 04/14/18 Reason for Consult: Pancreatic cancer Primary Care Provider: UNKNOWN History of Present Illness: Ms. Telles is a 77 year old lady with a history of metastatic pancreatic cancer. She was recently admitted in late March for abdominal pain. She had previously been evaluated for pancreatic lesion and underwent EUS with biopsy at outside facility with results returning as adenocarcinoma. PET CT in the outpatient setting showed evidence of metastatic disease in the liver. She was due to start outpatient FOLFIRINOX, with modified dosing when she was found to have a transaminitis and elevated total bilirubin of 7. She reports periumbilical abdominal pain. Review of Systems Jandice Abdominal pain weight loss all others negative. [facility] - History History Provided By: Patient, Significant Other - Medical History Medical History: Medical History (Last Reviewed 04/14/18 @ 15:46 by Tyron Plunkett MD) History of breast cancer Hyperlipidemia Pancreatic cancer - Surgical History Surgical History: Surgical History (Last Reviewed 04/14/18 @ 15:46 by Tyron Plunkett MD) History of appendectomy History of lumpectomy History of lymph node dissection of axilla - Family History Family History: Family History (Last Reviewed 04/14/18 @ 15:46 by Tyron Plunkett MD) Other Pancreatic cancer - Tobacco History Second Hand Smoke Exposure: No Smoking Status: Never smoker - Alcohol History How Often Do You Have a Drink Containing Alcohol: Never - Substance Use History Substance History: No History of Abuse - Immunization History Hx Influenza Vaccine This Season: Yes Medications and Allergies Active Medications: Active Medications Al Hydroxide/Mg Hydroxide (Milk Of Magnesia Liq) 30 ml PO Q12H PRN PRN Reason: Mild Constipation Bisacodyl (Dulcolax Supp) 10 mg RECTAL DAILY PRN PRN Reason: SEVERE CONSITIPATION Bupropion HCl (Wellbutrin Sr) 150 mg PO DAILY [facility] Fluoxetine HCl (Prozac) 40 mg PO DAILY [facility] Lactulose (Lactulose Liq) 30 ml PO DAILY PRN PRN Reason: SEVERE CONSITIPATION Morphine Sulfate (Morphine Inj) 1 mg IV.PUSH Q3H PRN PRN Reason: BREAKTHROUGH PAIN Naloxone HCl (Narcan Inj) 0.4 mg IV.PUSH UNSCH PRN PRN Reason: SEE LABEL COMMENTS Ondansetron HCl (Zofran Inj) 4 mg IV.PUSH Q6H PRN PRN Reason: NAUSEA OR VOMITING Oxycodone HCl (Roxicodone) 5 mg PO Q4H PRN PRN Reason: PAIN SCALE 3 TO 5 Oxycodone HCl (Roxicodone) 10 mg PO Q4H PRN PRN Reason: PAIN SCALE 6 TO 10 Senna/Docusate Sodium (Claudia-Colace) 1 tab PO BID [facility] Sennosides (Senokot) 17.2 mg PO Q12H PRN PRN Reason: Moderate Constipation Sodium Chloride (Ns Flush) 2 ml IV.FLUSH BID [facility] Sodium Chloride (Ns Flush) 2 ml IV.FLUSH PRN PRN PRN Reason: FLUSH AFTER USING IV ACCESS Sucralfate (Carafate) 1 gm PO Q6H [facility] Trazodone HCl (Desyrel) 50 mg PO DAILY [facility] Allergies Allergy/AdvReac Type Severity Reaction Status Date / Time No Known Allergies Allergy Verified 03/25/18 11:28 Home Medications Medication Instructions Recorded Confirmed Type bupropion HCl [Wellbutrin XL] 150 mg PO QAM 03/25/18 04/14/18 History fluoxetine 40 mg PO DAILY 03/25/18 04/14/18 History rhmkwn-kyyfamup-veuxekv [Zenpep] PO QID 03/25/18 History simvastatin 20 mg PO QPM 03/25/18 04/14/18 History sucralfate 1 g PO Q6H 03/25/18 04/14/18 History trazodone 50 mg PO DAILY 03/25/18 04/14/18 History oxycodone 5 mg PO Q4-6H PRN 04/14/18 04/14/18 History Physical Exam Vital signs: Vital Signs 04/14/18 16:39 Temperature 98.3 F Pulse Rate 76 Respiratory Rate 16 Blood Pressure 136/66 Pulse Oximetry 97 - Constitutional no acute distress - Routine HEENT Exam Head: Present: normocephalic Eye: Present: conjunctival icterus ENT: Present: mucous membranes moist - Routine Neck Exam Present: supple - Routine Respiratory Exam Present: CTA bilaterally - Routine Cardiovascular Exam Present: RRR - Routine Abdominal Exam Present: soft, tenderness (No edema of extremities) - Routine Skin Exam Present: jaundice - Routine Neurological Exam Present: alert, oriented X3 - Routine Psychiatric Exam Present: normal affect Results - Labs CBC & Chem 7: 04/14/18 16:51 04/14/18 16:51 Labs: Laboratory Results - last 24 hr 04/14/18 04/14/18 16:51 16:51 WBC 5.0 RBC 3.02 L Hgb 9.5 L Hct 29.5 L MCV 97.7 D MCH 31.6 MCHC 32.4 RDW 13.4 Plt Count 229 MPV 8.3 Neut % (Auto) 60.8 Lymph % (Auto) 20.5 [place] % (Auto) 14.0 H Eos % (Auto) 4.0 Baso % (Auto) 0.7 Neut # (Auto) 3.0 Lymph # (Auto) 1.0 [place] # (Auto) 0.7 Eos # (Auto) 0.2 Baso # (Auto) 0.0 WBC Differential . Differential Comment Auto diff final Sodium 140 Potassium 3.3 L Chloride 106 Carbon Dioxide 28.0 Anion Gap 6 BUN 21 H Creatinine 0.77 Estimated GFR 73 L Random Glucose 142 H Calcium 8.1 L Magnesium 2.0 Total Bilirubin 6.1 H AST 139 H ALT 260 H Alkaline Phosphatase 357 H Total Protein 6.2 L Albumin 2.8 L Assessment and Plan - Plan 1. Metastatic pancreatic cancer with multiple liver lesions and main pancreatic lesion. Will evaluate cause of elevated bilirubin. Ideally would identify culprit lesion and have GI team intervene. With resulting decline of bilirubin would initiate modified dose FOLFIRINOX. Inpatient oncology team will continue to follow closely. 2. Elevated bilirubin: known pancreatic cancer. MRCP and GI consult pending.
[2018-04-14] MEDS: Senna/Docusate Sodium 8.6/50 MG Tablet PO SCH (20:07)
--- NOTE | 2018-04-14 21:45 | MB ---
cc: Regino Genao MD, Sunil P MD Patel,Wili Plunkett,Tyron Alvarez,Ronda Osman MD DATE: 04/14/2018 REASON FOR CONSULTATION: I was asked to see his patient by Dr. Plunkett for evaluation of jaundice. HISTORY OF PRESENT ILLNESS: The patient is a pleasant 77-year-old white female who presented to the hospital with abdominal pain in March. At that time, a CT scan showed numerous lesions throughout the liver and a lesion in the pancreas. An MRI done also at that time (March) was suspicious for a pancreatic malignancy and there was mild biliary ductal dilatation at that time. There is also evidence of metastatic disease in the liver. Last month, the patient underwent an endoscopic ultrasound. This shows liver lesions and liver cysts. The esophagus and stomach were normal. There was a large infiltrating ulcerative mass at the first portion of duodenum with stenosis. Biopsy did reveal adenocarcinoma. The endoscopic ultrasound scope was able to get past this area and it turns out that the patient had a pancreatic head mass and biopsies also revealed adenocarcinoma. The patient was to undergo chemotherapy, but was noted to be jaundiced today and she was sent here. Her bilirubin was in the 6 range. The patient does have some nausea, upper abdominal pain, but it was better that it was in the past. This radiated to the periumbilical area. There has been no vomiting, dysphagia, odynophagia or satiety. No melena, hematochezia, diarrhea, or constipation. She has lost some weight, she states. PAST MEDICAL HISTORY: Pancreatic cancer with mets to the liver and invasion into the duodenum with stenosis. She has also dyslipidemia, depression and anxiety, breast cancer. PAST SURGICAL HISTORY: Appendectomy, lumpectomy, lymph node dissection of axilla. SOCIAL HISTORY: She does not smoke or drink. FAMILY HISTORY: A brother had pancreatic cancer, another brother with lymphoma. Father had mesothelioma. REVIEW OF SYSTEMS: GENERAL: Intermittent weight loss. No fever or chills. CARDIOPULMONARY: No chest pain, palpitations, shortness of cancer. GASTROINTESTINAL: Please see above. Other than above, unremarkable 12-point review of systems. ALLERGIES: NO DRUG ALLERGIES. MEDICATIONS: Medications at this time include: 1. Dulcolax. 2. Milk of magnesia. 3. Wellbutrin. 4. Prozac 5. Lactulose. 6. Morphine. 7. Narcan. PHYSICAL EXAMINATION: VITAL SIGNS: Blood pressure is 136/66, pulse of 76, respiratory rate 16, temperature 98.3. GENERAL: She is an elderly, white female, obviously jaundiced, appears to be in no acute GI distress. HEENT: Her pupils equal, round, reactive to light. There is scleral icterus noted. NECK: Supple. No thyroid lymphadenopathy. LUNGS: Clear to auscultation and percussion. HEART: Regular rate and rhythm. No gross murmurs heard. ABDOMEN: Soft, nondistended, nontender. No organ masses, ascites, or hernias. Bowel sounds positive in all 4 quadrants. EXTREMITIES: No cyanosis, clubbing or edema. NEUROLOGIC: Cranial nerves 2-12 are grossly intact. No gross sensory deficits. SKIN: Warm and moist and she was icteric. DATABASE: Please see above regarding previous imaging and studies. An MRCP has been ordered, which is still pending. [facility] ON THIS ADMISSION: Include BUN 21 and elevated creatinine 0.77, total bilirubin 6.1, SGOT 139, SGPT of 260, alkaline phosphatase 357, total protein 6.2 is low, albumin 2.8, which is low, potassium 3.3, which is low. White blood cell count of 5500, hemoglobin 9.5, hematocrit 29.5, MCV of 97.7, platelet count 229,000. IMPRESSION: 1. With her clinical history of pancreatic cancer with metastases to liver and with alkaline phosphatase and bilirubin are elevated, I suspect this is obstructive jaundice. She understands this more likely from the pancreatic cancer impinging on the bile duct. However, she also understands that jaundice could also be due to tumor load to the liver. 2 History of pancreatic cancer with metastasis. 3. History of pancreatic cancer with invasion of the duodenal bulb with stenosis. 4. Mild anemia. 5. Abdominal pain and weight loss. More likely to the pancreatic cancer. RECOMMENDATIONS: 1. Please check PT, PTT, INR. 2. Await MRI (MRCP has been ordered). 3. I have discussed the situation with an advanced endoscopist. She does have a stenosis of the first portion of the duodenum with basically invasion of the pancreas into the duodenum. The EUS scope (March) was able to get through that, however, the ERCP scope is a side-viewing scope and there is a good chance this would not pass through this area. Their suggestion was to consider a PTC with internal drainage and hopefully place an internal covered metal stent that way rather than place it endoscopically. I did discuss with radiology, they are aware of this. They suggested coagulation studies which has been ordered. They also suggested an imaging study which was ordered. 4. Further recommendations after the PTC is done. The patient understands the nature of how this is done and the risks, but she will talk more with interventional radiology. Regino Genao MD SPP/ct/do , 06:10 PM , 06:26 PM MTDD
[2018-04-14 21:52] LABS: Activated Partial Thrombo Time 30.6 sec (23.4-31.7); INR 1.2 Ratio
[2018-04-14] MEDS: Morphine Inj 4 MG/ML Vial IV.PUSH PRN (23:46)
[2018-04-14] MEDS: traZODone 50 MG Tablet PO PRN (23:46)
[2018-04-15] MEDS: Sucralfate 1 GM Tablet PO SCH ×4 (05:19→22:32)
[2018-04-15] MEDS ORDERED: traZODone 50 MG Tablet PO SCH ×2 (09:00→21:00)
[2018-04-15] MEDS ORDERED: Gadobutrol PF 7.5 MMOL/7.5 ML Vial (for RAD) IV.SIG ONE (10:11)
[2018-04-15] MEDS ORDERED: fentaNYL Citrate Inj 250 MCG/5 ML Ampul ONE (10:40)
[2018-04-15] MEDS ORDERED: Lidocaine PF 1% Inj 30 ML Vial ONE (11:07)
--- NOTE | 2018-04-15 11:22 | MR ---
EXAM DATE: 04/15/2018 10:23 AM EST AGE/SEX: 77 years / Female INDICATIONS: Pain. Pancreatic mass. CLINICAL DATA: This is the patient's initial encounter. Patient reports that signs and symptoms have been present for 1 day and indicates a pain score of 0/10. MEDICAL/SURGICAL HISTORY: Carcinoma, breast. Appendectomy. Right breast lumpectomy. COMPARISON: No prior exams available for comparison. TECHNIQUE: Multisequence, multiplanar MRI examination was performed without contrast and after the in travenous administration of 6 ml Gadavist (gadobutrol) contrast as a single exam dose. FINDINGS: Liver: The liver measures 15.4 cm in length and demonstrates no fat or iron deposition. There are in numerable T2 hyperintense lesions measuring up to 1.9 cm. Many of these demonstrated abnormal hyperme tabolic activity on prior PET imaging and demonstrates mild peripheral enhancement on the current exa mination. The lesions have increased in both size and number since the a prior examination, for examp le, one of the right lobe liver lesions currently measures 1.7 cm compared to 1.1 cm previously. Ther e are also new lesions identified. Portal vein and hepatic veins are patent. Intrahepatic Bile Ducts: There is severe diffuse intrahepatic bile duct dilatation similar to the pr ior examination. Common Bile Duct: The distal common bile duct measures 11 mm with abrupt cut off in the region of th e pancreatic head. The common hepatic duct measures up to 2 cm. These measurements are similar to the a prior examination. No common duct stone is present. Gallbladder: Gallbladder is of very distended but demonstrates no stones, wall thickening, or perich olecystic fluid. Pancreas: There is moderate diffuse dilatation of the main pancreatic duct and sidebranches. There i s abrupt cut off of the dilated duct in the pancreatic head in the region of the obstructing mass. Th ere is a hypoenhancing and somewhat rim enhancing lesion in the pancreatic head and uncinate process measuring approximately 2.8 x 1.6 cm, similar to the prior examinations. There is an adjacent enlarge d lymph node measuring 11 mm. Superior mesenteric artery is not involved. Other: The adrenal glands, kidneys, and spleen demonstrate no significant abnormality. Aorta is nonan eurysmal. The L2 lesion documented on prior PET/CT measures approximately 1.5 x 1.2 cm. No other bone lesion is appreciated. CONCLUSION: 1. There is a persistent high-grade obstruction of the distal common bile duct and main pancreatic d uct causing upstream dilatation, as above. It is caused by a masslike lesion that is poorly delineate d in the pancreatic head measuring approximately 2.8 x 1.9 cm. Imaging features are highly suspicious for a primary pancreatic adenocarcinoma. 2. There are innumerable enhancing lesions throughout the liver characteristic of metastatic disease . These demonstrated abnormal hypermetabolic activity on prior PET imaging as well. The number and si ze of the lesions have increased from the prior study suggesting progression of metastatic disease. 3. The L2 vertebral body lesion documented on prior PET/CT measures up to 1.5 cm and is suspicious f or an osseous metastatic lesion. Electronically signed by: Tyler Castillo MD Board Certified Radiologist 04/15/2018 11:21 AM EST
[2018-04-15] MEDS ORDERED: HYDROmorphone PF Inj 2 MG/ML Vial ONE (11:35)
[2018-04-15] MEDS ORDERED: fentaNYL Citrate Inj 100 MCG/2 ML Ampul ONE (11:50)
[2018-04-15] MEDS ORDERED: Labetalol HCl Inj 100 MG/20 ML Vial ONE (12:12)
--- NOTE | 2018-04-15 13:19 | P.RAD ---
Post Procedure Progress Note - Pre Procedure Diagnosis (1) Pancreatic cancer - Post Procedure Diagnosis (1) Pancreatic cancer - Procedure Information Procedure Date: 04/15/18 Supervising Radiologist: Laurent Singh MD Anesthesia: Conscious Sedation - Plan of Activity Patient to Unit: Nursing Unit Patient Condition: Fair See PACS Report for procedural detail/treatment. Drainage Procedure Fluoroscopy Biliary Drainage Placement Drainage: Buxton drainage Fluid Description: Bilious, Red (self expanding stent placed with 8 gambian nephrostomy above )
--- NOTE | 2018-04-15 13:58 | P.DIET ---
Nutritional Evaluation Type of nutrition evaluation: initial Nutrition screening: Weight Loss > 10 lbs Objective - Diagnosis jaundice, abdominal pain, weigt loss, pancreatic cancer with mets to liver - Objective Body Mass Index: 28 [place] body weight: 47 kg % IBW: 130 Body Weight Used for Calculations: Actual Energy Needs - Lower Range (kCal/kg): 28 Energy Needs - Upper Range (kCal/kg): 32 Lower Limit kCal/kg (kCals): 1,876 Upper Limit kCal/kg (kCals): 2,144 Lower Limit Protein Factor (Grams per Kg): 1.2 Upper Limit Protein Factor (Grams per Kg): 1.5 Lower Protein Needs (Protein): 81 Upper Protein Needs (Protein): 101 Fluid Factor (ml/kg): 30 Estimated Fluid Needs (ml): 2,016 Dietitian Reviewed in Medical Record: Curent medications, Labs, Medical history Diet Order: NPO Objective Comments: PMH; breast cancer, hyperlipidemia, anxiety, depression Labs; noted elevated LFT's Medications; reviewed Assessment Assessment: Pt is at nutritional risk 2/2 dx of weight loss and metastatic pancreatic cancer. At this time pt is NPO for stenting procedure. Will continue to follow pt as diet progresses and make recommendations accordingly. Recommendations: 1. Once diet begins consider nutritional supplement 2. Consult RD as needed 3. Will continue to follow Dietitian to Monitor: Lab values, Weight change, PO Intake
[2018-04-15] MEDS ORDERED: Iohexol 350 MG/ML 50 ML Vial (for Rad Diag) IV.SIG ONE (14:06)
[2018-04-15] MEDS: Morphine Inj 4 MG/ML Vial IV.PUSH PRN ×4 (14:30→23:59)
[2018-04-15] MEDS: Senna/Docusate Sodium 8.6/50 MG Tablet PO SCH ×2 (14:46→21:04)
--- NOTE | 2018-04-15 16:09 | IR ---
EXAM DATE: 04/15/2018 2:54 PM EST AGE/SEX: 77 years / Female INDICATIONS: Patient with a history of obstructive jaundice. Pancreatic carcinoma CLINICAL DATA: This is the patient's initial encounter. Patient reports that signs and symptoms have been present for 1 month and indicates a pain score of 5/10. MEDICAL/SURGICAL HISTORY: Carcinoma, pancreas. Carcinoma, breast. Hyperlipidemia Depression A ppendectomy. Lumpectomy Lymph node dissection of axilla COMPARISON: No prior exams available for comparison. FLUORO TIME (min): 46.02 IMAGE SERIES: 11 SEDATION TIME (min): 120 CONTRAST (cc): 80 Omnipaque (iohexol) 350 MEDICATION(S): 6mg midazolam (Versed) IV 2mg hydromorphone (Dilaudid) IV 300 fentanyl (Sublimaze) IV 10mg Labetalol DEVICE(S): stent (self expanding) [id number] [employer]PER[employer] SANDING balloon [id number] 8 Yi Expel drain . . PROCEDURE: 1. Ultrasound guided puncture of the biliary tree. 2. Percutaneous antegrade cholangiogram. 3. Biliary stent placement. 4. Conscious sedation with continuous EKG and oximetry monitoring. The risks, benefits and alternatives to the procedure were explained and verbal and written consent w as obtained. The site was prepped in sterile fashion. Full sterile technique was used, including ca p, mask, sterile gloves and gown and a large sterile sheet. Hand hygiene and 2% chlorhexidine and/or betadine/alcohol prep was utilized per protocol for cutaneous antisepsis. Sterile gel and sterile p robe cover were utilized for ultrasound guidance. The skin and subcutaneous tissues were infiltrated with local anesthetic solution. With ultrasound and fluoroscopic guidance the biliary tree was punctured with a 22 gauge Chiba needle and the biliary tree was opacified. An Accu stick set was used to gain access to the biliary tree an d a guidewire was passed into the duodenum. Serial dilatation was performed to accept the prescribed stent.. A nephrostomy tube was placed above the stent for temporary external drainage. Injection of positive contrast demonstrates appropriate position. Conscious sedation was performed with the prescribed dosages and duration as above in the presence of an independent trained radiology nurse to assist in the monitoring of the patient. EKG and oximetry remained stable throughout the procedure. The patient tolerated the procedure well and there were n o complications. The patient was sent to post anesthesia recovery in stable condition. CONCLUSION: 1. Uncomplicated biliary stent placement as above. External drain is present above the stent tempora rily Electronically signed by: Laurent Singh MD Board Certified Radiologist 04/15/2018 4:08 PM EST
--- NOTE | 2018-04-15 16:41 | P.PNIM ---
Subjective Interval history: Status post bilateral stent placement, presently complaining of pain, nausea but no vomiting. Denies any chest pain, no fever. Physical Exam Vital signs: Last Vital Signs Temp 97.6 F 04/15/18 15:53 Pulse 86 04/15/18 15:53 Resp 16 04/15/18 15:53 BP 154/83 H 04/15/18 15:53 Pulse Ox 95 04/15/18 15:54 Intake & Output 04/13/18 04/14/18 04/15/18 04/16/18 06:59 06:59 06:59 06:59 Intake Total 590 / 590 Output Total 800 / 800 Balance -210 / -210 Weight 67.2 kg Narrative: GENERAL: Well-developed, well-nourished adult female who looks weak Icteric sclera, positive for jaundice. CARDIOVASCULAR: Regular rate and rhythm. RESPIRATORY: No accessory muscle use. Clear to auscultation. Breath sounds equal bilaterally. GASTROINTESTINAL: Abdomen soft, mildly tender, biliary drain in place with dark output MUSCULOSKELETAL: Extremities without clubbing, cyanosis, or edema. No obvious deformities. NEUROLOGICAL: Awake and alert. No obvious cranial nerve deficits. Motor grossly within normal limits. Five out of 5 muscle strength in the arms and legs. Normal speech. Results Labs CBC & Chem 7: 04/14/18 16:51 04/14/18 16:51 Imaging Imaging: Impressions Biliary Stent Insertion 04/15/18 00:00 CONCLUSION: 1. Uncomplicated biliary stent placement as above. External drain is present above the stent temporarily Cholangiopancreatography MRI 04/15/18 00:00 CONCLUSION: 1. There is a persistent high-grade obstruction of the distal common bile duct and main pancreatic duct causing upstream dilatation, as above. It is caused by a masslike lesion that is poorly delineated in the pancreatic head measuring approximately 2.8 x 1.9 cm. Imaging features are highly suspicious for a primary pancreatic adenocarcinoma. 2. There are innumerable enhancing lesions throughout the liver characteristic of metastatic disease. These demonstrated abnormal hypermetabolic activity on prior PET imaging as well. The number and size of the lesions have increased from the prior study suggesting progression of metastatic disease. 3. The L2 vertebral body lesion documented on prior PET/CT measures up to 1.5 cm and is suspicious for an osseous metastatic lesion. Assessment and Plan Plan This is a 77-year-old female with a history of hyperlipidemia, left breast cancer status post chemotherapy and radiation and recently diagnosed metastatic pancreatic cancer to the liver s/p port placement and PET scan. She was sent from her oncologist clinic because of jaundice Obstructive jaundice in a patient with a history of metastatic pancreatic cancer to the liver- Recent abdominal CT and MRI showed biliary and pancreatic ductal dilatation. Oncology on board, GI consulted,s/p ERCP, but did not go past the stenosis on the first portion of the duodenum. IR consulted, status post fluoroscopy biliary drainage placement. Pain management with oxycodone and IV morphine counseled regarding narcotics. Check LFTs tomorrow. Hold statins, restart pancreatic enzymes. Hypokalemia-replace, recheck BMP tomorrow, Check magnesium. DVT prophylaxis with SCD and early ambulation Progress Note: Quality VTE Deep Vein Thrombosis/Pulmonary Embolism Present on Admission: No
[2018-04-15] MEDS: FLUoxetine 20 MG Capsule PO SCH (17:04)
[2018-04-15] MEDS: buPROPion 150 MG 12 HR Tablet PO SCH (17:04)
--- NOTE | 2018-04-15 17:26 | P.PNGI ---
Subjective Interval history: Patient had an MRCP which showed evidence of obstructive jaundice (ductal dilatation). Patient underwent a PTC with internal drainage. There is still an external drain also noted. This drain apparently is temporary. An expandable metal stent was placed. Patient tired and fatigued from the procedure. There is some discomfort from the procedure. Pain medications given and it helped. she denies any nausea, vomiting Physical Exam Vital signs: Vital Signs 04/14/18 20:00 04/14/18 20:17 04/15/18 00:00 Temperature 98.9 F 99.5 F Pulse Rate 74 98 H 94 H Respiratory Rate 16 16 Blood Pressure 137/71 139/72 Pulse Oximetry 97 94 L 04/15/18 00:19 04/15/18 04:00 04/15/18 04:02 Temperature 98.0 F Pulse Rate 84 76 74 Respiratory Rate 16 Blood Pressure 109/67 Pulse Oximetry 96 04/15/18 08:00 04/15/18 08:13 04/15/18 13:45 Temperature 98.7 F Pulse Rate 70 73 74 Respiratory Rate 16 16 16 Blood Pressure 110/70 178/91 H Pulse Oximetry 95 91 L 04/15/18 14:00 04/15/18 14:30 04/15/18 15:00 Temperature 97.5 F L Pulse Rate 83 57 L 77 Respiratory Rate 18 18 18 Blood Pressure 188/95 H 187/87 H 152/74 H Pulse Oximetry 93 L 92 L 91 L 04/15/18 15:03 04/15/18 15:16 04/15/18 15:53 Temperature 97.7 F 97.6 F Pulse Rate 99 H 86 Respiratory Rate 18 18 16 Blood Pressure 158/88 H 154/83 H Pulse Oximetry 94 L 88 L 04/15/18 15:54 Temperature Pulse Rate Respiratory Rate Blood Pressure Pulse Oximetry 95 Intake & Output 04/14/18 04/15/18 04/15/18 18:59 06:59 18:59 Intake Total 350 / 350 240 / 240 Output Total 800 / 800 Balance 350 / 350 -560 / -560 Weight 66.4 kg 67.2 kg Intake: Oral 350 / 350 240 / 240 Output: Urine 700 / 700 Emesis 100 / 100 Other: # Voids 2 Weight On Admission 66.4 kg - Constitutional no acute distress - Routine HEENT Exam Eye: Present: conjunctival icterus ENT: Present: mucous membranes moist - Routine Neck Exam Present: supple - Routine Abdominal Exam Present: soft, normoactive bowel sounds. Absent: tenderness, distended - Routine Extremities Exam Absent: cyanosis - Routine Skin Exam Present: intact - Routine Neurological Exam Present: alert, oriented X3 Results - Labs CBC & Chem 7: 04/16/18 05:17 04/16/18 05:17 Laboratory Results - last 24 hr 04/14/18 04/14/18 04/14/18 16:51 20:00 20:00 PT 12.0 H Cancelled INR 1.2 Cancelled APTT 30.6 Sodium 140 Potassium 3.3 L Chloride 106 Carbon Dioxide 28.0 Anion Gap 6 BUN 21 H Creatinine 0.77 Estimated GFR 73 L Random Glucose 142 H Calcium 8.1 L Magnesium 2.0 Total Bilirubin 6.1 H AST 139 H ALT 260 H Alkaline Phosphatase 357 H Total Protein 6.2 L Albumin 2.8 L - Imaging Impressions Biliary Stent Insertion 04/15/18 00:00 CONCLUSION: 1. Uncomplicated biliary stent placement as above. External drain is present above the stent temporarily Cholangiopancreatography MRI 04/15/18 00:00 CONCLUSION: 1. There is a persistent high-grade obstruction of the distal common bile duct and main pancreatic duct causing upstream dilatation, as above. It is caused by a masslike lesion that is poorly delineated in the pancreatic head measuring approximately 2.8 x 1.9 cm. Imaging features are highly suspicious for a primary pancreatic adenocarcinoma. 2. There are innumerable enhancing lesions throughout the liver characteristic of metastatic disease. These demonstrated abnormal hypermetabolic activity on prior PET imaging as well. The number and size of the lesions have increased from the prior study suggesting progression of metastatic disease. 3. The L2 vertebral body lesion documented on prior PET/CT measures up to 1.5 cm and is suspicious for an osseous metastatic lesion. Assessment and Plan - Attending Attestation Impression: 1. Obstructive jaundice secondary to pancreas cancerstatus post biliary stenting by interventional radiology 2. Pancreatic cancer with metastasis to the liver 3. Pancreatic cancer with invasion into the duodenum 4. Mild anemia 5. Abdominal pain and weight loss. Her current pain may be related to the stent slowly expanding and her external drain. PLAN: 1. Monitor LFTsit may take several days for them to drop. They may not drop to normal because she has metastasis to the liver also 2. If the bilirubin does not drop appreciably the stent may need to be readjusted by interventional radiology 3. Patient and nurse are aware of the above 4. Little to do from the GI standpoint. Will see again as needed.
[2018-04-15] MEDS: [UNRECOGNIZED DRUG - REMARK] PO SCH ×2 (21:03→21:55)
[2018-04-15] MEDS: traZODone 50 MG Tablet PO PRN (21:06)
[2018-04-16] MEDS: Sucralfate 1 GM Tablet PO SCH ×4 (04:31→23:19)
[2018-04-16] MEDS: Morphine Inj 4 MG/ML Vial IV.PUSH PRN ×2 (04:31→12:20)
[2018-04-16 05:27] LABS: Baso % (Auto) 0.1 % (0.0-2.0); Hematocrit 36.8 % (35.0-46.0); Hemoglobin 12.3 gm/dL (11.6-15.3); Lymph # (Auto) 0.3 th/mm3 (1.0-4.8); Lymph % (Auto) 2.6 % (9.0-44.0); Mean Corpuscular HGB Conc 33.5 % (32.0-36.0); Mean Corpuscular Hemoglobin 32.2 pg (27.0-34.0); Mean Corpuscular Volume 96.1 fL (80.0-100.0); Mean Platelet Volume 8.6 fL (7.0-11.0); Mono # (Auto) 0.5 th/mm3 (0.0-0.9); Mono % (Auto) 4.1 % (0.0-8.0); Neut # (Auto) 12.3 th/mm3 (1.8-7.7); Neut % (Auto) 93.2 % (16.0-70.0); Platelet Count 319 th/mm3 (150-450); Red Blood Count 3.83 mil/mm3 (4.00-5.30); Red Cell Distribution Width 13.9 % (11.6-17.2); White Blood Count 13.2 th/mm3 (4.0-11.0)
[2018-04-16 05:59] LABS: Albumin 2.9 g/dL (3.4-5.0); Calcium 8.9 mg/dL (8.5-10.1); Carbon Dioxide 28.6 meq/L (21.0-32.0); Magnesium 1.9 mg/dL (1.5-2.5); Potassium 4.3 meq/L (3.5-5.1)
[2018-04-16 06:02] LABS: Total Protein 6.8 g/dL (6.4-8.2)
--- NOTE | 2018-04-16 08:57 | P.PNIM ---
Subjective Interval history: Follow-up for obstructive jaundice Status post percutaneous transhepatic cholangiography with expandable metal stent placement. Presently, heart rate in the 120s, blood pressure in the 80s systolic. Patient still complaining of pain but better. Mild nausea but no vomiting. She thinks that her mother is very dry. Afebrile overnight. Physical Exam Vital signs: Last Vital Signs Temp 98.4 F 04/16/18 08:14 Pulse 115 H 04/16/18 08:14 Resp 24 04/16/18 08:14 BP 84/47 L 04/16/18 08:14 Pulse Ox 94 L 04/16/18 08:14 Intake & Output 04/14/18 04/15/18 04/16/18 04/17/18 06:59 06:59 06:59 06:59 Intake Total 590 / 590 490 / 490 Output Total 800 / 800 1315 / 1315 Balance -210 / -210 -825 / -825 Weight 67.2 kg 65.5 kg Narrative: GENERAL: Not in distress, appears to be generally weak. Pale conjunctive a, icteric sclera, positive for jaundice. CARDIOVASCULAR: Tachycardic, regular rhythm. RESPIRATORY: No accessory muscle use. Clear to auscultation. Breath sounds equal bilaterally. GASTROINTESTINAL: Abdomen soft, mildly tender, biliary drain in place with clear output. MUSCULOSKELETAL: Extremities without clubbing, cyanosis, or edema. No obvious deformities. NEUROLOGICAL: Awake and alert. No obvious cranial nerve deficits. Motor grossly within normal limits. Results Labs CBC & Chem 7: 04/16/18 05:17 04/16/18 05:17 Imaging Imaging: Impressions Biliary Stent Insertion 04/15/18 00:00 CONCLUSION: 1. Uncomplicated biliary stent placement as above. External drain is present above the stent temporarily Cholangiopancreatography MRI 04/15/18 00:00 CONCLUSION: 1. There is a persistent high-grade obstruction of the distal common bile duct and main pancreatic duct causing upstream dilatation, as above. It is caused by a masslike lesion that is poorly delineated in the pancreatic head measuring approximately 2.8 x 1.9 cm. Imaging features are highly suspicious for a primary pancreatic adenocarcinoma. 2. There are innumerable enhancing lesions throughout the liver characteristic of metastatic disease. These demonstrated abnormal hypermetabolic activity on prior PET imaging as well. The number and size of the lesions have increased from the prior study suggesting progression of metastatic disease. 3. The L2 vertebral body lesion documented on prior PET/CT measures up to 1.5 cm and is suspicious for an osseous metastatic lesion. Assessment and Plan Plan This is a 77-year-old female with a history of hyperlipidemia, left breast cancer status post chemotherapy and radiation and recently diagnosed metastatic pancreatic cancer to the liver s/p port placement and PET scan. She was sent from her oncologist clinic because of jaundice Obstructive jaundice in a patient with a history of metastatic pancreatic cancer to the liver- Recent abdominal CT and MRI showed biliary and pancreatic ductal dilatation. Oncology on board, GI consulted,s/p ERCP, but did not go past the stenosis on the first portion of the duodenum. IR consulted, status post fluoroscopy biliary drainage placement/percutaneous transhepatic cholangiography with metal stent placement. Sternal drain in place. Pain management with oxycodone and IV morphine counseled regarding narcotics. AST ALT improving, total bilirubin went down from 6.1-5. Hold statins, restart pancreatic enzymes. Acute renal failure-likely secondary to hypovolemia-we will give normal saline 200 cc/h for 1 L and continue at 84 cc/h, check ultrasound of the kidneys, good urine output. Recheck BMP tomorrow, consult nephrology tomorrow if no improvement. Hypotension, tachycardia and leukocytosis consistent with SIRS -leukocytosis with neutrophilic predominance, no bands noted, patient is immunocompromised with tachycardia and hypotension, will start cefepime. Fluids as above. Might be beginning sepsis. Check urinalysis, lactic acid stat, chest x-ray and blood culture. Hypokalemia-replaced, resolved DVT prophylaxis with SCD and early ambulation Patient full code, will discuss with when he comes in, might need to consult palliative care. Will check on the patient again today Aggregate critical care time was 35 minutes spent at bedside or in the hospital otto. Time to perform other separately billable procedures was not included in the critical care time. My time did not include minutes spent treating any other patients simultaneously or on activities that did not directly contribute to the patient's treatment. The services I provided to this patient were to treat and/or prevent clinically significant deterioration that could result in: organ failure, , disability or imminent clinical deterioration in the patient's condition. I provided critical care services requiring my management, as noted below: chart data review, documentation time, medication orders and management, vital sign assessments/reviewing monitor data, ordering and reviewing lab tests, ordering and interpreting/reviewing x-rays and diagnostic studies, care of the patient and discussion with other physicians and caregivers as needed. If no improvement, will need to be transferred to the ICU. Progress Note: Quality VTE Deep Vein Thrombosis/Pulmonary Embolism Present on Admission: No
[2018-04-16] MEDS: FLUoxetine 20 MG Capsule PO SCH (09:10)
[2018-04-16] MEDS: buPROPion 150 MG 12 HR Tablet PO SCH (09:10)
[2018-04-16] MEDS: [UNRECOGNIZED DRUG - REMARK] PO SCH ×4 (09:10→22:21)
[2018-04-16] MEDS: Senna/Docusate Sodium 8.6/50 MG Tablet PO SCH ×2 (09:10→20:04)
[2018-04-16] MEDS ORDERED: Sod Chloride 0.9% Inj 1,000 ML IV.SIG SCH (09:11)
--- NOTE | 2018-04-16 09:58 | XR ---
EXAM DATE: 04/16/2018 9:52 AM EST AGE/SEX: 77 years / Female INDICATIONS: Leukocytosis. CLINICAL DATA: This is the patient's initial encounter. Patient reports that signs and symptoms have been present for 1 day and indicates a pain score of 0/10. MEDICAL/SURGICAL HISTORY: . Carcinoma, pancreas. Carcinoma, breast. Hyperlipidemia. Depression. . Appendectomy. Lumpectomy. Lymph node dissection of axilla. [place] [facility] [place]. . FINDINGS: Single AP portable upright view of the chest demonstrates a new right-sided central line. Stable surg ical clips overlying the right axilla. The lungs are hypoinflated with hazy airspace opacity involvin g the majority of the right hemithorax and to a lesser extent the inferior aspect of the left hemitho rax. The heart size appears normal. Pulmonary vasculature is largely indistinct. CONCLUSION: Bilateral airspace opacities concerning for acute infectious process. Electronically signed by: Tena Claudio MD Board Certified Radiologist 04/16/2018 9:57 AM ANABEL Goldman
--- NOTE | 2018-04-16 10:35 | P.PNONC ---
Subjective Interval history: Afebrile Patient resting in bed; she is currently on bedpan She reports her pain is exacerbated at the moment as she just recently returned to get placed on bedpan. She does report that overall it is improved since yesterday. at bedside. He is tearful and asking when chemo can be started Objective Vital Signs/Intake & Output: Vital Signs 04/15/18 13:45 04/15/18 14:00 04/15/18 14:30 Temperature Pulse Rate 74 83 57 L Respiratory Rate 16 18 18 Blood Pressure 178/91 H 188/95 H 187/87 H Pulse Oximetry 91 L 93 L 92 L 04/15/18 15:00 04/15/18 15:03 04/15/18 15:16 Temperature 97.5 F L 97.7 F Pulse Rate 77 99 H Respiratory Rate 18 18 18 Blood Pressure 152/74 H 158/88 H Pulse Oximetry 91 L 94 L 04/15/18 15:53 04/15/18 15:54 04/15/18 19:00 Temperature 97.6 F Pulse Rate 86 104 H Respiratory Rate 16 Blood Pressure 154/83 H Pulse Oximetry 88 L 95 04/15/18 20:00 04/15/18 21:00 04/15/18 22:00 Temperature 97.6 F Pulse Rate 107 H 116 H 124 H Respiratory Rate 20 Blood Pressure 151/66 H Pulse Oximetry 92 L 04/15/18 23:00 04/16/18 00:00 04/16/18 01:00 Temperature 98.1 F Pulse Rate 124 H 126 H 122 H Respiratory Rate 20 Blood Pressure 111/82 Pulse Oximetry 95 04/16/18 02:00 04/16/18 03:00 04/16/18 04:00 Temperature 99.1 F Pulse Rate 120 H 116 H 114 H Respiratory Rate 20 Blood Pressure 91/56 L Pulse Oximetry 95 04/16/18 04:30 04/16/18 05:24 04/16/18 06:30 Temperature Pulse Rate 116 H 114 H Respiratory Rate 20 Blood Pressure Pulse Oximetry 04/16/18 08:14 Temperature 98.4 F Pulse Rate 115 H Respiratory Rate 24 Blood Pressure 84/47 L Pulse Oximetry 94 L Intake & Output 04/15/18 04/16/18 04/16/18 18:59 06:59 18:59 Intake Total 250 / 250 240 / 240 Output Total 415 / 415 900 / 900 Balance -165 / -165 -660 / -660 Weight 144 lb 6.444 oz Intake: Oral 250 / 250 240 / 240 Output: Urine 400 / 400 50 / 50 Emesis 500 / 500 Wound Drainage 350 / 350 # 1 Right 350 / 350 Other: # Voids 1 # Bowel Movements 0 Result Diagrams: 04/16/18 05:17 04/16/18 05:17 Laboratory Results: Laboratory Results - last 24 hr 04/16/18 04/16/18 04/16/18 05:17 05:17 09:35 WBC 13.2 H RBC 3.83 L Hgb 12.3 D Hct 36.8 MCV 96.1 MCH 32.2 MCHC 33.5 RDW 13.9 Plt Count 319 D MPV 8.6 Neut % (Auto) 93.2 H Lymph % (Auto) 2.6 L Greene % (Auto) 4.1 Eos % (Auto) 0.0 Baso % (Auto) 0.1 Neut # (Auto) 12.3 H Lymph # (Auto) 0.3 L Greene # (Auto) 0.5 Eos # (Auto) 0.0 Baso # (Auto) 0.0 WBC Differential . Differential Comment Auto diff final Sodium 143 Potassium 4.3 D Chloride 107 Carbon Dioxide 28.6 Anion Gap 7 BUN 28 H Creatinine 1.64 H Estimated GFR 31 L Random Glucose 176 H Lactic Acid 1.8 Calcium 8.9 D Magnesium 1.9 Total Bilirubin 5.0 H Direct Bilirubin 4.0 H Indirect Bilirubin 1.0 H AST 101 H ALT 247 H Alkaline Phosphatase 379 H Total Protein 6.8 D Albumin 2.9 L Imaging Studies: Impressions Biliary Stent Insertion 04/15/18 00:00 CONCLUSION: 1. Uncomplicated biliary stent placement as above. External drain is present above the stent temporarily Cholangiopancreatography MRI 04/15/18 00:00 CONCLUSION: 1. There is a persistent high-grade obstruction of the distal common bile duct and main pancreatic duct causing upstream dilatation, as above. It is caused by a masslike lesion that is poorly delineated in the pancreatic head measuring approximately 2.8 x 1.9 cm. Imaging features are highly suspicious for a primary pancreatic adenocarcinoma. 2. There are innumerable enhancing lesions throughout the liver characteristic of metastatic disease. These demonstrated abnormal hypermetabolic activity on prior PET imaging as well. The number and size of the lesions have increased from the prior study suggesting progression of metastatic disease. 3. The L2 vertebral body lesion documented on prior PET/CT measures up to 1.5 cm and is suspicious for an osseous metastatic lesion. Chest X-Ray 04/16/18 00:00 CONCLUSION: Bilateral airspace opacities concerning for acute infectious process. Medications: Active Medications Generic Name Dose Route Start Last Admin Trade Name Freq PRN Reason Stop Dose Admin Lipase/Protease/Amylase 1 cap 04/15/18 18:00 04/16/18 09:[address] 10/19/29 PO 1 cap QID SHAWNA Administration Bupropion HCl 150 mg 04/14/18 17:00 04/16/18 09:10 Wellbutrin Sr PO 150 mg DAILY SHAWNA Administration Fluoxetine HCl 40 mg 04/15/18 09:00 04/16/18 09:10 Prozac PO 40 mg DAILY SHAWNA Administration Morphine Sulfate 2 mg 04/15/18 21:28 04/16/18 04:31 Morphine Inj IV.PUSH 2 mg Q3H PRN Administration BREAKTHROUGH PAIN Oxycodone HCl 10 mg 04/14/18 15:37 04/16/18 09:10 Roxicodone PO 10 mg Q4H PRN Administration PAIN SCALE 6 TO 10 Prochlorperazine Edisylate 10 mg 04/15/18 21:26 04/16/18 04:31 Compazine Inj IV.PUSH 10 mg Q6H PRN Administration NAUSEA OR VOMITING Senna/Docusate Sodium 1 tab 04/14/18 21:00 04/16/18 09:10 Claudia-Colace PO 1 tab BID SHAWNA Administration Sodium Chloride 2 ml 04/14/18 21:00 04/15/18 21:03 Ns Flush IV.FLUSH 2 ml BID SHAWNA Administration Sucralfate 1 gm 04/14/18 17:00 04/16/18 04:31 Carafate PO 1 gm Q6H SHAWNA Administration Trazodone HCl 50 mg 04/14/18 23:26 04/15/18 21:06 Desyrel PO 50 mg HS PRN Administration FOR SLEEP Objective Remarks: GENERAL: Jaundiced elderly female resting in bed in no acute distress SKIN: Warm and dry. HEAD: Normocephalic. EYES: No scleral icterus. No injection or drainage. NECK: Supple, trachea midline. No JVD or lymphadenopathy. CARDIOVASCULAR: Regular rate and rhythm without murmurs. RESPIRATORY: Breath sounds equal bilaterally. No accessory muscle use. GASTROINTESTINAL: Abdomen soft. Tender to palpation. Right side external biliary drain to bedside bag. EXTREMITIES: No cyanosis, or edema. MUSCULOSKELETAL: Generalized weakness NEUROLOGICAL: No obvious focal deficit. Awake, alert, and oriented x3. Assessment/Plan - Plan 77-year-old female with history of metastatic pancreatic cancer who is due to start outpatient FOLFIRINOX but was noted to have transaminitis with elevated bilirubin of 7 outpatient. 1. Patient had MRCP that showed evidence of obstructive jaundice. Patient underwent a PTC with internal drainage. She also has external biliary drain in place as well. 2. Reviewed with the patient and her that her liver enzymes are decreased today. We will continue to monitor CMP. 3. Patient had some mild hypotension this morning and IV fluid bolus has been ordered by attending. 4. Anticipate giving palliative chemotherapy with FOLFIRINOX once patient has recovered from acute issues. 5. Continue supportive care - Attending Statement The exam, history, and the medical decision-making described in the above note were completed with the assistance of the mid-level provider. I reviewed and agree with the findings presented. I attest that I had a [id number] encounter with the patient on the same day, and personally performed and documented my assessment and findings in the medical record. Chart reviewed, patient's seen and examined She is complaining of nausea, vomiting and abdominal discomfort She has obstructive jaundice and has external biliary drainage LFTs are improving Patient is not stable to start palliative FOLFIRI Martin chemotherapy at this time This was discussed with the patient. She agreed that she is too sick to start chemotherapy
[2018-04-16 11:23] LABS: Bacteria,Urine Few /hpf; Calcium Oxalate Crystals,Urine Occasional /hpf; Clarity,Urine Clear (Clear); Color,Urine Amber (Yellw/Straw); Leukocyte Esterase,Urine Negative (Negative); Mucus,Urine Few /lpf (Occasional); Nitrite,Urine Negative (Negative); Specific Gravity,Urine 1.025 (1.002-1.035); Squamous Epithelial Cell,Urine 3 /hpf (0-5)
[2018-04-16 11:28] LABS: Glucose,Urine (UA) 100 mg/dL (Negative)
[2018-04-16 11:29] LABS: Bilirubin,Urine Large (Negative); Ictotest,Urine Positive (Negative)
--- NOTE | 2018-04-16 12:25 | US ---
EXAM DATE: 04/16/2018 12:19 PM EST AGE/SEX: 77 years / Female INDICATIONS: Increased BUN and creatinine. CLINICAL DATA: This is the patient's initial encounter. Patient reports that signs and symptoms have been present for 1 day and indicates a pain score of 0/10. MEDICAL/SURGICAL HISTORY: . Breast cancer. Pancreatic cancer. Hyperlipidemia. . Appendectomy . Right breast lumpectomy. Lymph node dissection of axilla. COMPARISON: [facility], MR ABDOMEN W & W/O CONTRAST, 03/26/2018. [facility], CT ABDOMEN & PELVIS W CONTRAST, 03/25/2018. . MEASUREMENTS: Right Kidney:__9.5 x 5.4 x 5.1 cm Left Kidney:__10.6 x 5.5 x 5.4 cm FINDINGS: Right Kidney: Increased echogenicity. No mass or hydronephrosis. Left Kidney: Increased echogenicity. No mass or hydronephrosis. Bladder: Within normal limits given the degree of distension. Other: None. CONCLUSION: 1. The renal parenchyma appears increased in echotexture consistent with renal disease. The renal co rtex appears preserved in thickness. Electronically signed by: Tena Claudio MD Board Certified Radiologist 04/16/2018 12:23 PM E
[2018-04-16] MEDS: HYDROmorphone PF Inj 1 MG/ML Ampul IV.PUSH PRN ×2 (12:47→17:15)
[2018-04-16] MEDS: Sod Chloride 0.9% Inj 1,000 ML IV.CONT SCH ×2 (14:07→22:30)
[2018-04-16] MEDS ORDERED: Sodium Chlor 0.9% Inj 500 ML IV.SIG SCH (21:40)
[2018-04-17] MEDS: HYDROmorphone PF Inj 1 MG/ML Ampul IV.PUSH PRN ×3 (02:36→18:29)
[2018-04-17] MEDS: Sucralfate 1 GM Tablet PO SCH ×2 (04:40→10:49)
[2018-04-17 06:21] LABS: Baso % (Auto) 0.2 % (0.0-2.0); Hematocrit 29.8 % (35.0-46.0); Lymph # (Auto) 0.4 th/mm3 (1.0-4.8); Lymph % (Auto) 4.6 % (9.0-44.0); Mean Corpuscular HGB Conc 33.6 % (32.0-36.0); Mean Corpuscular Hemoglobin 32.4 pg (27.0-34.0); Mean Corpuscular Volume 96.7 fL (80.0-100.0); Mean Platelet Volume 9.4 fL (7.0-11.0); Mono # (Auto) 0.5 th/mm3 (0.0-0.9); Mono % (Auto) 5.3 % (0.0-8.0); Neut # (Auto) 8.6 th/mm3 (1.8-7.7); Neut % (Auto) 89.9 % (16.0-70.0); Platelet Count 234 th/mm3 (150-450); Red Blood Count 3.08 mil/mm3 (4.00-5.30); Red Cell Distribution Width 14.1 % (11.6-17.2); White Blood Count 9.6 th/mm3 (4.0-11.0)
[2018-04-17 06:30] LABS: Calcium 8.2 mg/dL (8.5-10.1); Carbon Dioxide 24.1 meq/L (21.0-32.0); Potassium 4.4 meq/L (3.5-5.1)
[2018-04-17] MEDS: [UNRECOGNIZED DRUG - REMARK] PO SCH ×4 (09:13→20:10)
[2018-04-17] MEDS: Senna/Docusate Sodium 8.6/50 MG Tablet PO SCH ×2 (09:13→20:10)
[2018-04-17] MEDS: buPROPion 150 MG 12 HR Tablet PO SCH (09:13)
[2018-04-17] MEDS: FLUoxetine 20 MG Capsule PO SCH (09:14)
[2018-04-17] MEDS ORDERED: Vancomycin Inj 1,500 MG in Sodium Chlor 0.9% Inj 500 ML IV.SIG ONE (13:00)
--- NOTE | 2018-04-17 13:24 | P.PNIM ---
Subjective Interval history: Follow-up for sepsis Feeling better today, afebrile, no nausea or vomiting, still with abdominal pain but improved with narcotics, no diarrhea, no shortness of breath, cough, dysuria, frequency or urgency. Physical Exam Vital signs: Last Vital Signs Temp 98.9 F 04/17/18 12:05 Pulse 115 H 04/17/18 12:05 Resp 16 04/17/18 12:05 BP 123/62 04/17/18 12:05 Pulse Ox 92 L 04/17/18 12:05 Intake & Output 04/15/18 04/16/18 04/17/18 04/18/18 06:59 06:59 06:59 06:59 Intake Total 590 / 590 490 / 490 820 / 820 Output Total 800 / 800 1315 / 1315 775 / 775 Balance -210 / -210 -825 / -825 45 / 45 Weight 67.2 kg 65.5 kg 65.5 kg Narrative: GENERAL: Not in distress, appears to be generally weak. Pale conjunctive a, icteric sclera, positive for jaundice-better CARDIOVASCULAR: Regular rate and rhythm, no murmurs. RESPIRATORY: No accessory muscle use. Clear to auscultation. Breath sounds equal bilaterally. GASTROINTESTINAL: Abdomen soft, mildly tender, biliary drain in place with dark output. MUSCULOSKELETAL: Extremities without clubbing, cyanosis, or edema. No obvious deformities. NEUROLOGICAL: Awake and alert. No obvious cranial nerve deficits. Motor grossly within normal limits. Results Labs CBC & Chem 7: 04/17/18 02:40 04/17/18 02:40 Labs: Microbiology 04/16/18 12:02 Blood - Line Aerobic Blood Culture - Preliminary Staphylococcus aureus 04/16/18 12:02 Blood - Line Anaerobic Blood Culture - Preliminary No growth in 1 day 04/16/18 12:09 Blood - Line Aerobic Blood Culture - Preliminary No growth in 1 day 04/16/18 12:09 Blood - Line Anaerobic Blood Culture - Preliminary gram positive cocci Assessment and Plan Plan This is a 77-year-old female with a history of hyperlipidemia, left breast cancer status post chemotherapy and radiation and recently diagnosed metastatic pancreatic cancer to the liver s/p port placement and PET scan. She was sent from her oncologist clinic because of jaundice. Recent abdominal CT and MRI showed biliary and pancreatic ductal dilatation. Oncology on board, GI consulted,s/p ERCP, but did not go past the stenosis on the first portion of the duodenum. Status post percutaneous transhepatic cholangiography with metal stent placement by IR. Postprocedure, the patient became tachycardic, hypotensive, sepsis workup was done. Blood culture came back with gram- positive cocci, also developed acute renal failure. Sepsis secondary to gram-positive bacteremia with hypotension-patient became hypotensive yesterday, tachycardic with leukocytosis, chest x-ray showed bilateral infiltrates that may be consistent with pneumonia. Was started on cefepime (04/16--), Blood culture growing gram-positive cocci, start vancomycin , consult infectious disease. Lactic acid was 1.8. Urinalysis did not show pyuria. Leukocytosis resolved today. Acute renal failure, likely prerenal, from sepsis versus ATN nonoliguric- continue normal saline, increase to 100 cc/h, ultrasound of the kidneys showed increased echotexture of the parenchyma consistent with renal disease. No obstruction. Consult nephrology. Recheck BMP tomorrow, monitor I/O's. Obstructive jaundice in a patient with a history of metastatic pancreatic cancer to the liver- s/p PTC metal stent placement. Pain management with oxycodone and IV morphine counseled regarding narcotics. AST ALT improving, total bilirubin went down from 6.1-5. Hold statins, continue pancreatic enzymes. She needs to start on palliative chemotherapy but to sick at this time. Recheck LFTs tomorrow. Hypokalemia-replaced, resolved DVT prophylaxis with SCD and early ambulation Patient full code, will discuss with when he comes in, might need to consult palliative care. Progress Note: Quality VTE Deep Vein Thrombosis/Pulmonary Embolism Present on Admission: No
[2018-04-17] MEDS: Sod Chloride 0.9% Inj 1,000 ML IV.CONT SCH (14:10)
--- NOTE | 2018-04-17 15:09 | P.CONID ---
History of Present Illness Service: Infectious disease Consult date: 04/17/18 Requesting Physician: Joyce Neri Reason for Consult: Evaluate patient with positive blood culture Primary Care Provider: UNKNOWN History of Present Illness: Patient seen and examined. Records reviewed. Patient is a 77-year-old female, with newly diagnosed metastatic pancreatic cancer, with metastases to the liver, admitted to the hospital for further evaluation of new jaundice. She was apparently seen by the oncologist and was noted to have jaundice. The had noted the skin discoloration about 2 days prior to admission. Patient was supposed to be started on chemotherapy. She had a port placed and PET scan done as an outpatient. The port was placed March 28. Patient was evaluated by GI, and underwent PTCA and placement of a stent on April 15. Yesterday patient was noted to be hypotensive, and tachycardic more than her usual. She just did not feel good. There were 2 blood cultures done yesterday, one from the port, and one peripherally. They are now reported as growing gram-positive cocci in clusters. Patient has not been febrile. Her WBC went up to 13.2 yesterday and is back down to normal. Her total bilirubin is decreasing. Patient has an external drain to the biliary tract, and apparently it was a temporary placement. Patient currently still complains of significant abdominal pain. She states it response to the pain medication. She is complaining of severe generalized weakness. She has been started on cefepime and vancomycin. Infectious disease consultation has been requested to assist with evaluation and treatment of positive blood cultures. Review of Systems Constitutional: Reports fatigue, Reports lack of energy, Denies chills, Denies fever(s) Eyes: Denies discharge, Denies dry eyes Ears, Nose, Mouth, and Throat: Reports dry mouth, Denies headache(s), Denies nasal discharge, Denies pain with swallowing, Denies sore throat Cardiovascular: Denies chest pain, Denies leg swelling, Denies shortness of breath Respiratory: Denies chest congestion, Denies cough, Denies shortness of breath Gastrointestinal: Reports abdominal pain, Reports bloating, Denies difficulty swallowing, Denies nausea, Denies pain with swallowing, Denies vomiting Genitourinary: Denies difficulty urinating, Denies painful urination Musculoskeletal: Denies joint pain Skin/Breast: Reports yellowing of the skin, Denies rash PMFSH - History History Provided By: Patient, Significant Other - Medical History Medical History: Medical History (Last Updated 04/17/18 @ 15:03 by Lavinia Mahmood MD) Port-A-Cath in place History of breast cancer Hyperlipidemia Pancreatic cancer - Surgical History Surgical History: Surgical History (Last Reviewed 04/14/18 @ 15:46 by Tyron Plunkett MD) History of appendectomy History of lumpectomy History of lymph node dissection of axilla - Family History Family History: Family History (Last Reviewed 04/14/18 @ 15:46 by Tyron Plunkett MD) Other Pancreatic cancer - Tobacco History Second Hand Smoke Exposure: No Smoking Status: Never smoker - Alcohol History How Often Do You Have a Drink Containing Alcohol: Never - Substance Use History Substance History: No History of Abuse - Immunization History Hx Influenza Vaccine This Season: Yes Medications and Allergies Active Medications: Active Medications Al Hydroxide/Mg Hydroxide (Milk Of [place]) 30 ml PO Q12H PRN PRN Reason: Mild Constipation Lipase/Protease/Amylase ([place] 10/19/29) 1 cap PO QID PENDING SALE TO [facility] Last Admin: 04/17/18 14:11 Dose: 1 cap Bisacodyl (Dulcolax Supp) 10 mg RECTAL DAILY PRN PRN Reason: SEVERE CONSITIPATION Bupropion HCl (Wellbutrin Sr) 150 mg PO DAILY PENDING SALE TO [facility] Last Admin: 04/17/18 09:13 Dose: 150 mg Fluoxetine HCl (Prozac) 40 mg PO DAILY PENDING SALE TO [facility] Last Admin: 04/17/18 09:14 Dose: 40 mg Hydromorphone HCl (Dilaudid Pf Inj) 1 mg IV.PUSH Q4H PRN PRN Reason: NPO, pain 6-10 Last Admin: 04/17/18 10:48 Dose: 1 mg Sodium Chloride (Ns Inj) 1,000 mls @ 84 mls/hr IV.CONT .[id number] PENDING SALE TO [facility] Last Admin: 04/17/18 14:10 Dose: 84 mls/hr Cefepime HCl 2,000 mg/ Sodium (Chloride) 100 mls @ 200 mls/hr IV.SIG Q12H PENDING SALE TO [facility] Last Infusion: 04/17/18 03:16 Dose: Infused Vancomycin HCl 1,500 mg/ (Sodium Chloride) 515 mls @ 250 mls/hr IV.SIG ONCE ONE Stop: 04/17/18 15:03 Last Admin: 04/17/18 13:00 Dose: 250 mls/hr Lactulose (Lactulose Liq) 30 ml PO DAILY PRN PRN Reason: SEVERE CONSITIPATION Morphine Sulfate (Morphine Inj) 2 mg IV.PUSH Q3H PRN PRN Reason: BREAKTHROUGH PAIN Last Admin: 04/16/18 12:20 Dose: 2 mg Naloxone HCl (Narcan Inj) 0.4 mg IV.PUSH UNSCH PRN PRN Reason: SEE LABEL COMMENTS Oxycodone HCl (Roxicodone) 5 mg PO Q4H PRN PRN Reason: PAIN SCALE 3 TO 5 Oxycodone HCl (Roxicodone) 10 mg PO Q4H PRN PRN Reason: PAIN SCALE 6 TO 10 Last Admin: 04/17/18 09:13 Dose: 10 mg Prochlorperazine Edisylate (Compazine Inj) 10 mg IV.PUSH Q6H PRN PRN Reason: NAUSEA OR VOMITING Last Admin: 04/16/18 12:00 Dose: 10 mg Senna/Docusate Sodium (Claudia-Colace) 1 tab PO BID PENDING SALE TO [facility] Last Admin: 04/17/18 09:13 Dose: 1 tab Sennosides (Senokot) 17.2 mg PO Q12H PRN PRN Reason: Moderate Constipation Sodium Chloride (Ns Flush) 2 ml IV.FLUSH BID PENDING SALE TO [facility] Last Admin: 04/17/18 14:09 Dose: Not Given Sodium Chloride (Ns Flush) 2 ml IV.FLUSH PRN PRN PRN Reason: FLUSH AFTER USING IV ACCESS Sucralfate (Carafate) 1 gm PO Q6H PENDING SALE TO [facility] Last Admin: 04/17/18 10:49 Dose: Not Given Trazodone HCl (Desyrel) 50 mg PO HS PRN PRN Reason: FOR SLEEP Last Admin: 04/15/18 21:06 Dose: 50 mg Trimethobenzamide HCl (Tigan Ing) 200 mg IM Q8H PRN PRN Reason: NAUSEA OR VOMITING Allergies Allergy/AdvReac Type Severity Reaction Status Date / Time No Known Allergies Allergy Verified 03/25/18 11:28 Home Medications Medication Instructions Recorded Confirmed Type bupropion HCl [Wellbutrin XL] 150 mg PO QAM 03/25/18 04/14/18 History fluoxetine 40 mg PO DAILY 03/25/18 04/14/18 History [id number] [Zenpep] 40,000 unit PO QID 03/25/18 04/15/18 History simvastatin 20 mg PO QPM 03/25/18 04/14/18 History sucralfate 1 g PO Q6H 03/25/18 04/14/18 History trazodone 50 mg PO DAILY 03/25/18 04/14/18 History oxycodone 5 mg PO Q4-6H PRN 04/14/18 04/14/18 History Exam Vital signs: Vital Signs 04/16/18 15:36 04/16/18 19:47 04/16/18 20:00 Temperature 99.0 F 98.5 F Pulse Rate 130 H 122 H 126 H Respiratory Rate 16 12 Blood Pressure 113/65 93/54 L Pulse Oximetry 94 L 94 L 04/16/18 21:18 04/16/18 22:30 04/16/18 23:27 Temperature 98.0 F Pulse Rate 128 H Respiratory Rate 16 Blood Pressure 82/45 L 112/69 110/63 Pulse Oximetry 94 L 04/16/18 23:54 04/17/18 00:28 04/17/18 02:35 Temperature Pulse Rate 129 H 124 H Respiratory Rate 16 Blood Pressure 99/55 L 110/59 L Pulse Oximetry 94 L 04/17/18 03:00 04/17/18 03:15 04/17/18 08:16 Temperature 99.2 F Pulse Rate 118 H 115 H Respiratory Rate 16 18 Blood Pressure 115/66 Pulse Oximetry 93 L 04/17/18 12:05 Temperature 98.9 F Pulse Rate 115 H Respiratory Rate 16 Blood Pressure 123/62 Pulse Oximetry 92 L Intake & Output 04/16/18 04/17/18 04/17/18 18:59 06:59 18:59 Intake Total 100 / 100 720 / 720 1000 / 1000 Output Total 550 / 550 225 / 225 Balance -450 / -450 495 / 495 1000 / 1000 Weight 65.5 kg Intake: IV 100 / 100 600 / 600 1000 / 1000 NS Inj 1,000 ML @ 84 mls/hr IV. 1000 / 1000 CONT .[id number] SHAWNA Rx#:[id number] Maxipime Inj 2,000 MG In NS Inj 100 / 100 100 / 100 100 ML @ 200 mls/hr IV.SIG Q12H SHAWNA Rx#:[id number] NS Inj 500 ML @ 1000 mls/hr IV. 500 / 500 SIG BOLUS SHAWNA Rx#:[id number] Oral 120 / 120 Output: Urine 0 / 0 Wound Drainage 550 / 550 225 / 225 # 1 Right 550 / 550 225 / 225 Other: Date of Last Bowel Movement 04/13/18 Narrative: Physical examination GENERAL: Patient is a well-nourished, well-developed female, looks very weak , awake and alert, not in respiratory distress. SKIN: Cool and dry. No generalized rash, has jaundice. HEAD: Atraumatic. Normocephalic. No temporal wasting, or tenderness. EYES: [place] conjunctiva. No petechia or hemorrhage. Pupils equal, round and reactive to light. Extraocular movements full and intact. Has scleral icterus. No injection or drainage. EARS, NOSE AND THROAT: Nose without bleeding or purulent nasal discharge. No sinus tenderness. Slightly dry oral mucosa. No oral lesions noted. NECK: Trachea midline. Supple and not tender, no meningeal signs CARDIOVASCULAR: Regular rate and rhythm, tachycardic. No murmurs, rubs or gallops heard. Port in R upper chest, accessed, not red, not tender, not swollen RESPIRATORY: Clear to auscultation. Breath sounds equal bilaterally. No rales , wheezing or rhonchi. Decreased breath sounds at the bases. ABDOMEN: Distended abdomen, bowel sounds hypoactive, with diffuse tenderness on palpation, not guarding, no rebound. EXternal biliary drain present in R abdomen, with maguire bilious fluid. EXTREMITIES: No clubbing, cyanosis, or edema. No joint effusion, has good ROM. No calf tenderness. NEUROLOGICAL: Awake and alert. Cranial nerves grossly intact. Motor grossly within normal limits. PSYCHIATRIC: Normal affect, calm and cooperative. LINE: Port no evidence of infection Results - Labs CBC & Chem 7: 04/17/18 02:40 04/17/18 02:40 Labs: Laboratory Results - last 24 hr 04/17/18 04/17/18 02:40 02:40 WBC 9.6 RBC 3.08 L Hgb 10.0 L D Hct 29.8 L MCV 96.7 MCH 32.4 MCHC 33.6 RDW 14.1 Plt Count 234 MPV 9.4 Neut % (Auto) 89.9 H Lymph % (Auto) 4.6 L Wilkes % (Auto) 5.3 Eos % (Auto) 0.0 Baso % (Auto) 0.2 Neut # (Auto) 8.6 H Lymph # (Auto) 0.4 L Wilkes # (Auto) 0.5 Eos # (Auto) 0.0 Baso # (Auto) 0.0 WBC Differential . Differential Comment Auto diff final Sodium 140 Potassium 4.4 Chloride 107 Carbon Dioxide 24.1 Anion Gap 9 BUN 55 H Creatinine 3.00 H Estimated GFR 15 L Random Glucose 135 H Calcium 8.2 L Assessment and Plan - Plan Impression Sepsis with GPC, preliminary Staph aureus - not usually at biliary pathogen, concern with port Pancreatic CA with mets to liver - has new jaundice New jaundice, S/P PTC, and placement of stent, and external biliary drain - bilirubin decreasing Recommendation Repeat BC today - port and peripheral Bile fluid C/S Continue Cefepime Continue vancomycin Will decide on Abx RX once workup completed Follow C/S MOnitor progress I will follow along with you Thank you for this consultation Spoke with D/W RN
[2018-04-17] MEDS ORDERED: Vancomycin Consult Pharmacy OTHER PRN (15:10)
[2018-04-17] MEDS: Sucralfate Liq 1 GM/10 ML UDC PO SCH (18:12)
--- NOTE | 2018-04-17 23:59 | MB ---
cc: Izaebla Toscano MD DATE: 04/17/2018 REASON FOR CONSULTATION: Elevated BUN and creatinine, for evaluation. HISTORY OF PRESENT ILLNESS: This is a 77-year-old female with a past medical history of breast cancer, hyperlipidemia, history of pancreatic cancer, which was recently diagnosed about a month ago, admitted to the hospital to discuss the initiation of chemotherapy and was found to be jaundiced. I was called to see the patient because of elevated BUN and creatinine. The patient has a BUN of 55 and creatinine of 3.0. Three days ago, her BUN was 21 and creatinine was 0.77. The patient was also found to have elevated liver enzymes and bilirubin was 6.1 on admission. The patient has not been eating well and she continued to have nausea, intermittent abdominal pain. The patient was hospitalized 2 weeks ago and underwent CT scan and MRI, which shows a biliary and pancreatic ductal dilatation and pancreatic head mass. There is no history of diarrhea. No dysuria or hematuria and there is no history of taking any nonsteroidal anti-inflammatory drugs. PAST MEDICAL HISTORY: Breast cancer, hyperlipidemia, history of pancreatic cancer, which was diagnosed recently. PAST SURGICAL HISTORY: Appendectomy, lumpectomy, lymph node dissection of axilla. REVIEW OF SYSTEMS: The patient denies weakness, feeling tired. There is no history of fever. No shortness of breath. No chest pain. Has nausea, anorexia, decreased appetite, not eating well and has intermittent abdominal pain, which is cramping in nature. There is no history of diarrhea. No dysuria or hematuria. SOCIAL HISTORY: The patient is . There is no history of smoking or heavy alcoholism. FAMILY HISTORY: Noncontributory. ALLERGIES: SHE HAS NO KNOWN DRUG ALLERGIES. MEDICATIONS: Currently, she is on following medications: 1. Dulcolax as needed. 2. Wellbutrin 150 mg once a day. 3. Cefepime 2 g IV every 12 hours. 4. Prozac 40 mg once a day. 5. Dilaudid 1 mg every 4 hours. 6. Lactulose 30 mL p.r.n. 7. Morphine as needed. 8. Narcan as needed. 9. Oxycodone 5 mg every 4 hours p.r.n. 10. Vancomycin with pharmacy dosing. 11. Compazine as needed. 12. Senokot as needed. 13. Claudia-Colace as needed. 14. Carafate 1 g every 6 hours. 15. Trazodone 50 mg p.r.n. 16. 1200 mg p.r.n. every 8 hours. The patient was on vancomycin 1.5 g. She received only one dose of that. PHYSICAL EXAMINATION: GENERAL: She is awake, alert. She is not in acute distress. VITAL SIGNS: Blood pressure is 112/64. Her blood pressure has been low and yesterday, the lowest volume was 84/47, temperature is 99.1. HEENT: Pupils are mid constricted. Icteric sclerae. Conjunctivae are pale. NECK: Supple. JVD is not elevated. LUNGS: The patient has bilateral decreased air entry with scattered wheezing. HEART: S1, S2. Regular rate and rhythm. ABDOMEN: Distended, soft, , mild epigastric tenderness. There is no rebound or rigidity. Bowel sounds positive. EXTREMITIES: There is no pedal edema. INVESTIGATIONS: White count is 9.5, hemoglobin 10.0, platelet count of 234, neutrophils 89.9%. INR is 1.2. Sodium 140, potassium 4.4, chloride 107, bicarbonate 24.1, BUN 55, creatinine 3.0, lactic acid 1.8, calcium is 8.2. Total bilirubin is 5.0, direct bilirubin is 4.0, indirect is 1.0. AST is 101, ALT is 247, alkaline phosphatase is 379, albumin is 2.9, total protein is 6.8. Urinalysis is showing protein of 30. Her creatinine level during last admission was normal at 0.6-0.7. IMAGING STUDIES: The patient had an abdomen and bladder ultrasound done yesterday and it showed a 9.5 cm right kidney and the left kidney is 10.6 cm, increased echogenicity. There was no mass or hydronephrosis. Chest x-ray was done, which shows a bilateral airspace disease, possibility of infection. MRI of the done, which shows a high-grade obstruction of distal common bile duct, mass-like lesion in the pancreatic head, multiple lesions throughout the liver consistent with metastatic L2 vertebral body lesion. ASSESSMENT AND PLAN: 1. Acute kidney injury. 2. Pancreatic cancer. 3. Dehydration. 4. Anorexia and decreased oral intake. The patient has an acute kidney injury, most likely this is related to dehydration or the possibility of acute tubular necrosis. I will send the urine sodium and osmolality, also check vancomycin random level, and agree with continuing the IV fluid with normal saline, avoiding nephrotoxins. Thank you for the consultation and I will follow the patient while she is in the hospital. Nikolay Toscano MD AQJ/rw/do , 10:05 PM , 10:20 PM
[2018-04-18] MEDS: Sucralfate Liq 1 GM/10 ML UDC PO SCH ×5 (00:40→23:52)
[2018-04-18] MEDS: HYDROmorphone PF Inj 1 MG/ML Ampul IV.PUSH PRN ×3 (00:41→23:52)
[2018-04-18 05:39] LABS: Baso % (Auto) 0.1 % (0.0-2.0); Eos # (Auto) 0.1 th/mm3 (0.0-0.4); Eos % (Auto) 0.6 % (0.0-4.0); Hematocrit 25.7 % (35.0-46.0); Hemoglobin 8.4 gm/dL (11.6-15.3); Lymph # (Auto) 0.4 th/mm3 (1.0-4.8); Lymph % (Auto) 3.4 % (9.0-44.0); Mean Corpuscular HGB Conc 32.8 % (32.0-36.0); Mean Corpuscular Hemoglobin 31.9 pg (27.0-34.0); Mean Platelet Volume 8.9 fL (7.0-11.0); Mono # (Auto) 0.5 th/mm3 (0.0-0.9); Mono % (Auto) 5.1 % (0.0-8.0); Neut # (Auto) 9.4 th/mm3 (1.8-7.7); Neut % (Auto) 90.8 % (16.0-70.0); Platelet Count 220 th/mm3 (150-450); Red Blood Count 2.65 mil/mm3 (4.00-5.30); Red Cell Distribution Width 13.8 % (11.6-17.2); White Blood Count 10.3 th/mm3 (4.0-11.0)
[2018-04-18 06:19] LABS: Albumin 1.8 g/dL (3.4-5.0); Calcium 7.9 mg/dL (8.5-10.1); Carbon Dioxide 21.5 meq/L (21.0-32.0); Phosphorus 4.6 mg/dL (2.5-4.9); Potassium 3.9 meq/L (3.5-5.1); Total Protein 5.7 g/dL (6.4-8.2); Vancomycin,Random 18.4 Comment
[2018-04-18] MEDS: Senna/Docusate Sodium 8.6/50 MG Tablet PO SCH ×2 (09:43→20:19)
[2018-04-18] MEDS: FLUoxetine 20 MG Capsule PO SCH (09:43)
[2018-04-18] MEDS: buPROPion 150 MG 12 HR Tablet PO SCH (09:43)
[2018-04-18] MEDS: [UNRECOGNIZED DRUG - REMARK] PO SCH ×4 (09:43→20:17)
[2018-04-18] MEDS ORDERED: Acetaminophen 325 MG Tablet PO PRN (10:28)
--- NOTE | 2018-04-18 10:28 | P.PNONC ---
Subjective Interval history: T-max 100.1 F. Patient lying in bed, stating she is uncomfortable. She currently has back pain. Her nurses at the bedside, we have made position adjustments. She reports right flank pain and " I just do not feel good" Objective Vital Signs/Intake & Output: Vital Signs 04/17/18 12:05 04/17/18 16:00 04/17/18 20:00 Temperature 98.9 F 98.8 F 99.1 F Pulse Rate 115 H 116 H 127 H Respiratory Rate 16 20 16 Blood Pressure 123/62 123/65 112/64 Pulse Oximetry 92 L 92 L 97 04/17/18 23:03 04/17/18 23:30 04/18/18 00:00 Temperature 100.1 F H Pulse Rate 129 H 127 H 134 H Respiratory Rate 18 20 Blood Pressure 150/82 H Pulse Oximetry 93 L 04/18/18 00:41 04/18/18 01:36 04/18/18 02:53 Temperature Pulse Rate 116 H Respiratory Rate 20 12 Blood Pressure Pulse Oximetry 04/18/18 03:39 04/18/18 04:50 04/18/18 04:55 Temperature 99.2 F Pulse Rate 123 H Respiratory Rate 18 18 16 Blood Pressure 142/77 H 123/63 Pulse Oximetry 94 L 04/18/18 05:47 04/18/18 09:33 Temperature 98.8 F Pulse Rate 114 H Respiratory Rate 14 16 Blood Pressure 134/73 Pulse Oximetry 93 L Intake & Output 04/17/18 04/18/18 04/18/18 18:59 06:59 18:59 Intake Total 1000 / 1000 340 / 340 Output Total 275 / 275 650 / 650 Balance 725 / 725 -310 / -310 Weight 69.1 kg Intake: IV 1000 / 1000 100 / 100 NS Inj 1,000 ML @ 84 mls/hr IV. 1000 / 1000 CONT .[id number] [facility] Rx#:[id number] Maxipime Inj 2,000 MG In NS Inj 100 / 100 100 ML @ 200 mls/hr IV.SIG Q12H [facility] Rx#:[id number] Oral 240 / 240 Output: Urine 500 / 500 Wound Drainage 275 / 275 150 / 150 # 1 Right 275 / 275 150 / 150 Other: Date of Last Bowel Movement 04/13/18 04/13/18 Result Diagrams: 04/18/18 04:00 04/18/18 04:00 Laboratory Results: Laboratory Results - last 24 hr 04/18/18 04/18/18 04/18/18 04:00 04:00 04:50 WBC 10.3 RBC 2.65 L Hgb 8.4 L Hct 25.7 L MCV 97.0 MCH 31.9 MCHC 32.8 RDW 13.8 Plt Count 220 MPV 8.9 Neut % (Auto) 90.8 H Lymph % (Auto) 3.4 L Leslie % (Auto) 5.1 Eos % (Auto) 0.6 Baso % (Auto) 0.1 Neut # (Auto) 9.4 H Lymph # (Auto) 0.4 L Leslie # (Auto) 0.5 Eos # (Auto) 0.1 Baso # (Auto) 0.0 WBC Differential . Differential Comment Auto diff final Sodium 140 Potassium 3.9 Chloride 109 H Carbon Dioxide 21.5 Anion Gap 10 BUN 71 H Creatinine 2.82 H Estimated GFR 16 L Random Glucose 98 Calcium 7.9 L Phosphorus 4.6 Total Bilirubin 3.0 H Direct Bilirubin 2.2 H Indirect Bilirubin 0.8 AST 31 ALT 89 H Alkaline Phosphatase 160 H Total Creatine Kinase 166 Total Protein 5.7 L D Albumin 1.8 L D Urine Osmolality 392 Ur Random Sodium Random Vancomycin 18.4 04/18/18 04:50 WBC RBC Hgb Hct MCV MCH MCHC RDW Plt Count MPV Neut % (Auto) Lymph % (Auto) Leslie % (Auto) Eos % (Auto) Baso % (Auto) Neut # (Auto) Lymph # (Auto) Leslie # (Auto) Eos # (Auto) Baso # (Auto) WBC Differential Differential Comment Sodium Potassium Chloride Carbon Dioxide Anion Gap BUN Creatinine Estimated GFR Random Glucose Calcium Phosphorus Total Bilirubin Direct Bilirubin Indirect Bilirubin AST ALT Alkaline Phosphatase Total Creatine Kinase Total Protein Albumin Urine Osmolality Ur Random Sodium 68 Random Vancomycin Culture Results: Microbiology 04/16/18 12:09 Aerobic Blood Culture - Preliminary Blood - Line No growth in 1 day Anaerobic Blood Culture - Final Staphylococcus aureus 04/16/18 12:02 Aerobic Blood Culture - Preliminary Blood - Line Staphylococcus aureus Anaerobic Blood Culture - Preliminary No growth in 1 day Medications: Active Medications Generic Name Dose Route Start Last Admin Trade Name Freq PRN Reason Stop Dose Admin Lipase/Protease/Amylase 1 cap 04/15/18 18:00 04/18/18 09:43 [place] 10/19/29 PO 1 cap QID [facility] Administration Bupropion HCl 150 mg 04/14/18 17:00 04/18/18 09:43 Wellbutrin Sr PO 150 mg DAILY [facility] Administration Fluoxetine HCl 40 mg 04/15/18 09:00 04/18/18 09:43 Prozac PO 40 mg DAILY [facility] Administration Hydromorphone HCl 1 mg 04/16/18 12:32 04/18/18 04:54 Dilaudid Pf Inj IV.PUSH 1 mg Q4H PRN Administration NPO, pain 6-10 Sodium Chloride 1,000 mls @ 84 mls/hr 04/16/18 09:12 04/17/18 14:10 Ns Inj IV.CONT 84 mls/hr .[id number] [facility] Administration Cefepime HCl 2,000 mg/ Sodium 100 mls @ 200 mls/hr 04/17/18 02:00 04/18/18 02 :02 Chloride IV.SIG 200 mls/hr Q12H [facility] Administration Ipratropium [place] 0.5 mg 04/17/18 23:18 04/17/18 23:30 Atrovent Neb NEB 0.5 mg Q2HR NEB PRN Administration SHORTNESS OF BREATH Morphine Sulfate 2 mg 04/15/18 21:28 04/16/18 12:20 Morphine Inj IV.PUSH 2 mg Q3H PRN Administration BREAKTHROUGH PAIN Oxycodone HCl 10 mg 04/14/18 15:37 04/18/18 10:09 Roxicodone PO 10 mg Q4H PRN Administration PAIN SCALE 6 TO 10 Prochlorperazine Edisylate 10 mg 04/15/18 21:26 04/16/18 12:00 Compazine Inj IV.PUSH 10 mg Q6H PRN Administration NAUSEA OR VOMITING Senna/Docusate Sodium 1 tab 04/14/18 21:00 04/18/18 09:43 Claudia-Colace PO 1 tab BID [facility] Administration Sodium Chloride 2 ml 04/14/18 21:00 04/17/18 20:10 Ns Flush IV.FLUSH 2 ml BID [facility] Administration Sucralfate 1 gm 04/17/18 18:00 04/18/18 05:01 Carafate Liq PO 1 gm Q6HR [facility] Administration Trazodone HCl 50 mg 04/14/18 23:26 04/15/18 21:06 Desyrel PO 50 mg HS PRN Administration FOR SLEEP Objective Remarks: GENERAL: Ill-appearing elderly female patient, in no acute distress. SKIN: Jaundiced, warm and dry. HEAD: Normocephalic. EYES: No scleral icterus. No injection or drainage. NECK: Supple, trachea midline. CARDIOVASCULAR: Regular rate and rhythm without murmurs. RESPIRATORY: Breath sounds clear, equal bilaterally. No accessory muscle use. GASTROINTESTINAL: Abdomen large, soft, tender. External drain, draining green fluid. EXTREMITIES: No cyanosis, or edema. MUSCULOSKELETAL: Adequate muscle tone. NEUROLOGICAL: No obvious focal deficit. Awake, alert, and oriented x3. PSYCHIATRIC: Appropriate mood and affect; insight and judgment normal. Assessment/Plan - Plan 77-year-old female with history of metastatic pancreatic cancer who is due to start outpatient FOLFIRINOX but was noted to have transaminitis with elevated bilirubin of 7 outpatient. 1. Status post MRCP on 04/15/18 that showed evidence of obstructive jaundice. Patient underwent a PTC with internal drainage. She also has external biliary drain in place, currently draining green fluid. She is tender to her right side. 2. Liver enzymes continue to decrease. We will continue to monitor. 3. Hemoglobin has decreased to 8.4, this is down from 12.3 two days ago. No signs of bleeding, will transfuse 1 unit pRBC today. 4. Continue supportive care - Attending Statement The exam, history, and the medical decision-making described in the above note were completed with the assistance of the mid-level provider. I reviewed and agree with the findings presented. I attest that I had a [id number] encounter with the patient on the same day, and personally performed and documented my assessment and findings in the medical record. Patient agitated. She reports that she is having painful BM. Called RN to bedside. at bedside. Long discussion with . Discussed that at this point in time due to multiple medical issues including infection, MADI, elevated bilirubin/transaminitis patient is not a candidate for intensive therapy. Her wishes for her to be comfortable and not in pain. Hospice /palliative care consult pending in the morning.
[2018-04-18] MEDS ORDERED: Sodium Chlor 0.9% Inj 250 ML IV.SIG SCH (11:00)
[2018-04-18] MEDS: Sod Chloride 0.9% Inj 1,000 ML IV.CONT SCH ×3 (13:50→22:28)
--- NOTE | 2018-04-18 16:50 | P.PNNP ---
Subjective Interval history: Patient is alert and oriented. Frequent position changes from discomfort. Creatinine slightly improved at 2.82 today. <Sveta Forbes - Last Filed: 04/18/18 16:43> Physical Exam Vital signs: Vital Signs 04/17/18 20:00 04/17/18 23:03 04/17/18 23:30 Temperature 99.1 F 100.1 F H Pulse Rate 127 H 129 H 127 H Respiratory Rate 16 18 20 Blood Pressure 112/64 150/82 H Pulse Oximetry 97 93 L 04/18/18 00:00 04/18/18 00:41 04/18/18 01:36 Temperature Pulse Rate 134 H Respiratory Rate 20 12 Blood Pressure Pulse Oximetry 04/18/18 02:53 04/18/18 03:39 04/18/18 04:50 Temperature 99.2 F Pulse Rate 116 H 123 H Respiratory Rate 18 18 Blood Pressure 142/77 H Pulse Oximetry 94 L 04/18/18 04:55 04/18/18 05:47 04/18/18 09:33 Temperature 98.8 F Pulse Rate 114 H Respiratory Rate 16 14 16 Blood Pressure 123/63 134/73 Pulse Oximetry 93 L 04/18/18 12:00 04/18/18 13:26 04/18/18 15:50 Temperature 97.2 F L 98 F Pulse Rate 112 H 119 H Respiratory Rate 18 18 Blood Pressure 132/70 165/87 H Pulse Oximetry 94 L 95 92 L Intake & Output 04/17/18 04/18/18 04/18/18 18:59 06:59 18:59 Intake Total 1000 / 1000 1440 / 1440 Output Total 275 / 275 650 / 650 Balance 725 / 725 790 / 790 Weight 69.1 kg Intake: IV 1000 / 1000 1200 / 1200 NS Inj 1,000 ML @ 84 mls/hr IV. 1000 / 1000 1000 / 1000 CONT .[id number] [facility] Rx#:[id number] Maxipime Inj 2,000 MG In NS Inj 200 / 200 100 ML @ 200 mls/hr IV.SIG Q12H [facility] Rx#:[id number] Oral 240 / 240 Output: Urine 500 / 500 Wound Drainage 275 / 275 150 / 150 # 1 Right 275 / 275 150 / 150 Other: Date of Last Bowel Movement 04/13/18 04/13/18 Narrative: GENERAL: Not in distress, appears to be generally weak. CARDIOVASCULAR: Regular rate and rhythm, no murmurs. RESPIRATORY: No accessory muscle use. Clear to auscultation. Breath sounds equal bilaterally. GASTROINTESTINAL: Abdomen soft, mildly tender, biliary drain in place with dark output. MUSCULOSKELETAL: Extremities without clubbing, cyanosis, or edema. No obvious deformities. NEUROLOGICAL: Awake and alert. No obvious cranial nerve deficits. Motor grossly within normal limits. <Sveta Forbes - Last Filed: 04/18/18 16:43> Vital signs: Vital Signs 04/17/18 20:00 04/17/18 23:03 04/17/18 23:30 Temperature 99.1 F 100.1 F H Pulse Rate 127 H 129 H 127 H Respiratory Rate 16 18 20 Blood Pressure 112/64 150/82 H Pulse Oximetry 97 93 L 04/18/18 00:00 04/18/18 00:41 04/18/18 01:36 Temperature Pulse Rate 134 H Respiratory Rate 20 12 Blood Pressure Pulse Oximetry 04/18/18 02:53 04/18/18 03:39 04/18/18 04:50 Temperature 99.2 F Pulse Rate 116 H 123 H Respiratory Rate 18 18 Blood Pressure 142/77 H Pulse Oximetry 94 L 04/18/18 04:55 04/18/18 05:47 04/18/18 09:33 Temperature 98.8 F Pulse Rate 114 H Respiratory Rate 16 14 16 Blood Pressure 123/63 134/73 Pulse Oximetry 93 L 04/18/18 12:00 04/18/18 13:26 04/18/18 15:50 Temperature 97.2 F L 98 F Pulse Rate 112 H 119 H Respiratory Rate 18 18 Blood Pressure 132/70 165/87 H Pulse Oximetry 94 L 95 92 L 04/18/18 17:13 Temperature Pulse Rate Respiratory Rate Blood Pressure Pulse Oximetry 92 L Intake & Output 04/17/18 04/18/18 04/18/18 18:59 06:59 18:59 Intake Total 1000 / 1000 1440 / 1440 500 / 500 Output Total 275 / 275 650 / 650 1350 / 1350 Balance 725 / 725 790 / 790 -850 / -850 Weight 69.1 kg Intake: IV 1000 / 1000 1200 / 1200 NS Inj 1,000 ML @ 84 mls/hr IV. 1000 / 1000 1000 / 1000 CONT .[id number] [facility] Rx#:[id number] Maxipime Inj 2,000 MG In NS Inj 200 / 200 100 ML @ 200 mls/hr IV.SIG Q12H [facility] Rx#:[id number] Oral 240 / 240 500 / 500 Output: Urine 500 / 500 1000 / 1000 Wound Drainage 275 / 275 150 / 150 350 / 350 # 1 Right 275 / 275 150 / 150 350 / 350 Other: Date of Last Bowel Movement 04/13/18 04/13/18 04/18/18 # Bowel Movements 1 <Izabela Toscano - Last Filed: 04/18/18 18:40> Assessment and Plan - Assessment (1) Acute kidney injury Code(s): N17.9 - Acute kidney failure, unspecified Status: Acute Plan: The patient has an acute kidney injury, most likely this is related to dehydration, GI and biliary losses or the possibility of acute tubular necrosis. Urine sodium level elevated and urine specific gravity at 1.025 Renal ultrasound with no acute findings Recommend to continue IVF, fluids encouraged. Maintain accurate I+O's Avoid nephrotoxins as possible Will monitor urinary output and BMP Labs in AM <Sveta Forbes - Last Filed: 04/18/18 16:43> - Assessment (1) Acute kidney injury Code(s): N17.9 - Acute kidney failure, unspecified Status: Acute Plan: Patient seen and examined, agree with above. Has MADI, non oliguric. Possibly pre renal or ATN. Urine Sodium is not low, Creatinine is slightly better. Renal U/S result noted. Continue IVF. <Izabela Toscano - Last Filed: 04/18/18 18:40>
[2018-04-18] MEDS ORDERED: Albumin Human 25% Inj 100 ML IV.SIG ONE (18:10)
--- NOTE | 2018-04-18 18:13 | P.PNIM ---
Subjective Interval history: Patient says she is feeling all right. Reports pain is controlled. Patient is oriented to place, not to month or year. I discussed with , who says he is interested in talking with both palliative care and with hospice Physical Exam Vital signs: Vital Signs 04/17/18 20:00 04/17/18 23:03 04/17/18 23:30 Temperature 99.1 F 100.1 F H Pulse Rate 127 H 129 H 127 H Respiratory Rate 16 18 20 Blood Pressure 112/64 150/82 H Pulse Oximetry 97 93 L 04/18/18 00:00 04/18/18 00:41 04/18/18 01:36 Temperature Pulse Rate 134 H Respiratory Rate 20 12 Blood Pressure Pulse Oximetry 04/18/18 02:53 04/18/18 03:39 04/18/18 04:50 Temperature 99.2 F Pulse Rate 116 H 123 H Respiratory Rate 18 18 Blood Pressure 142/77 H Pulse Oximetry 94 L 04/18/18 04:55 04/18/18 05:47 04/18/18 09:33 Temperature 98.8 F Pulse Rate 114 H Respiratory Rate 16 14 16 Blood Pressure 123/63 134/73 Pulse Oximetry 93 L 04/18/18 12:00 04/18/18 13:26 04/18/18 15:50 Temperature 97.2 F L 98 F Pulse Rate 112 H 119 H Respiratory Rate 18 18 Blood Pressure 132/70 165/87 H Pulse Oximetry 94 L 95 92 L 04/18/18 17:13 Temperature Pulse Rate Respiratory Rate Blood Pressure Pulse Oximetry 92 L Intake & Output 04/17/18 04/18/18 04/18/18 18:59 06:59 18:59 Intake Total 1000 / 1000 1440 / 1440 500 / 500 Output Total 275 / 275 650 / 650 1350 / 1350 Balance 725 / 725 790 / 790 -850 / -850 Weight 69.1 kg Intake: IV 1000 / 1000 1200 / 1200 NS Inj 1,000 ML @ 84 mls/hr IV. 1000 / 1000 1000 / 1000 CONT .[id number] [facility] Rx#:[id number] Maxipime Inj 2,000 MG In NS Inj 200 / 200 100 ML @ 200 mls/hr IV.SIG Q12H [facility] Rx#:[id number] Oral 240 / 240 500 / 500 Output: Urine 500 / 500 1000 / 1000 Wound Drainage 275 / 275 150 / 150 350 / 350 # 1 Right 275 / 275 150 / 150 350 / 350 Other: Date of Last Bowel Movement 04/13/18 04/13/18 04/18/18 # Bowel Movements 1 Narrative: GENERAL: patient sitting up in bed. Appears comfortable. Oriented to place only SKIN: Warm and dry. HEAD: Normocephalic. EYES: No scleral icterus. No injection or drainage. NECK: Supple, trachea midline. No JVD. CARDIOVASCULAR: Regular rate and rhythm without murmurs, gallops, or rubs. RESPIRATORY: Breath sounds equal bilaterally. No accessory muscle use. GASTROINTESTINAL: Abdomen soft, non-tender, nondistended. PTC drain with bilious fluid. MUSCULOSKELETAL: No cyanosis, or edema. BACK: Nontender without obvious deformity. No CVA tenderness. Results - Labs CBC & Chem 7: 04/18/18 04:00 04/18/18 04:00 Laboratory Results - last 24 hr 04/18/18 04/18/18 04/18/18 04:00 04:00 04:50 WBC 10.3 RBC 2.65 L Hgb 8.4 L Hct 25.7 L MCV 97.0 MCH 31.9 MCHC 32.8 RDW 13.8 Plt Count 220 MPV 8.9 Neut % (Auto) 90.8 H Lymph % (Auto) 3.4 L Sullivan % (Auto) 5.1 Eos % (Auto) 0.6 Baso % (Auto) 0.1 Neut # (Auto) 9.4 H Lymph # (Auto) 0.4 L Sullivan # (Auto) 0.5 Eos # (Auto) 0.1 Baso # (Auto) 0.0 WBC Differential . Differential Comment Auto diff final Sodium 140 Potassium 3.9 Chloride 109 H Carbon Dioxide 21.5 Anion Gap 10 BUN 71 H Creatinine 2.82 H Estimated GFR 16 L Random Glucose 98 Calcium 7.9 L Phosphorus 4.6 Total Bilirubin 3.0 H Direct Bilirubin 2.2 H Indirect Bilirubin 0.8 AST 31 ALT 89 H Alkaline Phosphatase 160 H Total Creatine Kinase 166 Total Protein 5.7 L D Albumin 1.8 L D Urine Osmolality 392 Ur Random Sodium Random Vancomycin 18.4 Blood Type Antibody Screen MTS Gel Crossmatch 04/18/18 04/18/18 04:50 12:06 WBC RBC Hgb Hct MCV MCH MCHC RDW Plt Count MPV Neut % (Auto) Lymph % (Auto) Sullivan % (Auto) Eos % (Auto) Baso % (Auto) Neut # (Auto) Lymph # (Auto) Sullivan # (Auto) Eos # (Auto) Baso # (Auto) WBC Differential Differential Comment Sodium Potassium Chloride Carbon Dioxide Anion Gap BUN Creatinine Estimated GFR Random Glucose Calcium Phosphorus Total Bilirubin Direct Bilirubin Indirect Bilirubin AST ALT Alkaline Phosphatase Total Creatine Kinase Total Protein Albumin Urine Osmolality Ur Random Sodium 68 Random Vancomycin Blood Type B Positive Antibody Screen Negative MTS Gel Crossmatch See Detail Microbiology 04/17/18 15:35 Fluid - Bile Fluid Gram Stain - Final 04/17/18 15:35 Fluid - Bile Fluid Body Fluid Culture - Preliminary gram negative rods 04/17/18 15:35 Blood - Peripheral Aerobic Blood Culture - Preliminary No growth in 1 day 04/17/18 15:35 Blood - Peripheral Anaerobic Blood Culture - Preliminary No growth in 1 day 04/17/18 15:50 Blood - Other Aerobic Blood Culture - Preliminary No growth in 1 day 04/17/18 15:50 Blood - Other Anaerobic Blood Culture - Preliminary No growth in 1 day 04/16/18 12:02 Blood - Line Aerobic Blood Culture - Preliminary Staphylococcus aureus 04/16/18 12:02 Blood - Line Anaerobic Blood Culture - Preliminary No growth in 2 days 04/16/18 12:09 Blood - Line Aerobic Blood Culture - Preliminary No growth in 2 days 04/16/18 12:09 Blood - Line Anaerobic Blood Culture - Final Staphylococcus aureus Assessment and Plan - Plan This is a 77-year-old female with a history of hyperlipidemia, left breast cancer status post chemotherapy and radiation and recently diagnosed metastatic pancreatic cancer to the liver s/p port placement and PET scan. She was sent from her oncologist clinic because of jaundice. Recent abdominal CT and MRI showed biliary and pancreatic ductal dilatation. Oncology on board, GI consulted,s/p ERCP, but did not go past the stenosis on the first portion of the duodenum. Status post percutaneous transhepatic cholangiography with metal stent placement by IR. Postprocedure, the patient became tachycardic, hypotensive, sepsis workup was done. Blood culture came back with gram- positive cocci, also developed acute renal failure. //Sepsis secondary to gram-positive bacteremia with hypotension-patient became hypotensive yesterday, tachycardic with leukocytosis, chest x-ray showed bilateral infiltrates that may be consistent with pneumonia. Was started on cefepime (04/16--), Blood culture growing gram-positive cocci, start vancomycin , consult infectious disease. Lactic acid was 1.8. Urinalysis did not show pyuria. Leukocytosis resolved today. -continues with tachycardia. We'll try albumin. MRSA bacteremia as well as gram -negative biliary infection. Continue antibiotics as per infectious disease. Follow up final cultures. //Acute renal failure, likely prerenal, from sepsis versus ATN nonoliguric- continue normal saline, increase to 100 cc/h, ultrasound of the kidneys showed increased echotexture of the parenchyma consistent with renal disease. No obstruction. Consult nephrology. Recheck BMP tomorrow, monitor I/O's. =creatinine overall stable. //Obstructive jaundice in a patient with a history of metastatic pancreatic cancer to the liver- s/p PTC metal stent placement. Pain management with oxycodone and IV morphine counseled regarding narcotics. AST ALT improving, total bilirubin went down from 6.1-5. Hold statins, continue pancreatic enzymes. She needs to start on palliative chemotherapy but to sick at this time. Recheck LFTs tomorrow. =continues improving. Continue drainage. Monitor. //Hypokalemia-replaced, resolved //DVT prophylaxis with SCD and early ambulation Patient full code, will discuss with when he comes in, might need to consult palliative care. Discussed Condition With: patient, nurse, at bedside. Discharge Planning: consulting palliative care and hospice.
[2018-04-19] MEDS: HYDROmorphone PF Inj 1 MG/ML Ampul IV.PUSH PRN ×3 (04:30→13:38)
[2018-04-19 05:28] LABS: Baso % (Auto) 0.1 % (0.0-2.0); Eos # (Auto) 0.1 th/mm3 (0.0-0.4); Eos % (Auto) 0.9 % (0.0-4.0); Hematocrit 30.8 % (35.0-46.0); Hemoglobin 10.4 gm/dL (11.6-15.3); Lymph # (Auto) 0.3 th/mm3 (1.0-4.8); Lymph % (Auto) 2.8 % (9.0-44.0); Mean Corpuscular HGB Conc 33.7 % (32.0-36.0); Mean Corpuscular Hemoglobin 31.5 pg (27.0-34.0); Mean Corpuscular Volume 93.4 fL (80.0-100.0); Mean Platelet Volume 8.7 fL (7.0-11.0); Mono # (Auto) 0.9 th/mm3 (0.0-0.9); Mono % (Auto) 7.2 % (0.0-8.0); Neut # (Auto) 11.1 th/mm3 (1.8-7.7); Platelet Count 237 th/mm3 (150-450); Red Cell Distribution Width 14.9 % (11.6-17.2); White Blood Count 12.5 th/mm3 (4.0-11.0)
[2018-04-19] MEDS: Sucralfate Liq 1 GM/10 ML UDC PO SCH ×2 (06:06→11:38)
[2018-04-19 06:13] LABS: Albumin 2.4 g/dL (3.4-5.0); Calcium 9.1 mg/dL (8.5-10.1); Carbon Dioxide 21.7 meq/L (21.0-32.0); Magnesium 2.1 mg/dL (1.5-2.5); Phosphorus 3.5 mg/dL (2.5-4.9); Potassium 3.1 meq/L (3.5-5.1); Total Protein 6.7 g/dL (6.4-8.2); Vancomycin,Random 11.3 Comment
[2018-04-19] MEDS: [UNRECOGNIZED DRUG - REMARK] PO SCH ×2 (08:45→13:02)
[2018-04-19] MEDS: FLUoxetine 20 MG Capsule PO SCH (08:45)
[2018-04-19] MEDS: buPROPion 150 MG 12 HR Tablet PO SCH (08:45)
[2018-04-19] MEDS: Senna/Docusate Sodium 8.6/50 MG Tablet PO SCH (08:46)
--- NOTE | 2018-04-19 08:58 | P.PNIM ---
Subjective Interval history: She says she is feeling all right. She is oriented to place, not to date or year. Nursing notes some leakage around insertion site of right flank biliary drain Physical Exam Vital signs: Vital Signs 04/18/18 09:33 04/18/18 12:00 04/18/18 13:26 Temperature 98.8 F 97.2 F L Pulse Rate 114 H 112 H Respiratory Rate 16 18 Blood Pressure 134/73 132/70 Pulse Oximetry 93 L 94 L 95 04/18/18 15:50 04/18/18 17:13 04/18/18 20:00 Temperature 98 F 98.3 F Pulse Rate 119 H 120 H Respiratory Rate 18 18 Blood Pressure 165/87 H 157/77 H Pulse Oximetry 92 L 92 L 93 L 04/18/18 22:12 04/18/18 22:32 04/18/18 23:50 Temperature 98.5 F 98.2 F 97.3 F L Pulse Rate 117 H 117 H 125 H Respiratory Rate 20 20 22 Blood Pressure 170/84 H 175/95 H 178/99 H Pulse Oximetry 94 L 92 L 92 L 04/19/18 00:16 04/19/18 00:34 04/19/18 04:00 Temperature 99.1 F 97.2 F L Pulse Rate 114 H 112 H 115 H Respiratory Rate 16 18 Blood Pressure 116/62 154/82 H Pulse Oximetry 96 94 L 04/19/18 04:21 Temperature Pulse Rate 117 H Respiratory Rate Blood Pressure Pulse Oximetry Intake & Output 04/18/18 04/19/18 04/19/18 18:59 06:59 18:59 Intake Total 500 / 500 2700 / 2700 Output Total 1350 / 1350 650 / 650 Balance -850 / -850 0 / 2049 Intake: IV 2300 / 2300 NS Inj 1,000 ML @ 84 mls/hr IV. 1999 / 1999 CONT .[id number] [facility] Rx#:[id number] Flexbumin 25% Inj 100 ML @ 60 100 / 100 mls/hr IV.SIG ONCE ONE Rx#: [id number] Maxipime Inj 2,000 MG In NS Inj 200 / 200 100 ML @ 200 mls/hr IV.SIG Q12H [facility] Rx#:[id number] Oral 500 / 500 Intake (Blood Product) Amt 400 / 400 Rbc As-3 Leukoreduced Unit 400 / 400 [id number] Output: Urine 1000 / 1000 600 / 600 Wound Drainage 350 / 350 50 / 50 # 1 Right 350 / 350 50 / 50 Other: # Voids 1 # Incontinent Voids 2 # Urine Diapers 3 Date of Last Bowel Movement 04/18/18 04/18/18 # Bowel Movements 1 2 Narrative: GENERAL: patient sitting up in bed. Appears comfortable. Oriented to place only as before. SKIN: Warm and dry. HEAD: Normocephalic. EYES: No scleral icterus. No injection or drainage. NECK: Supple, trachea midline. No JVD. CARDIOVASCULAR: Regular rate and rhythm without murmurs, gallops, or rubs. RESPIRATORY: Breath sounds equal bilaterally. No accessory muscle use. GASTROINTESTINAL: Abdomen soft, non-tender, nondistended. PTC drain with bilious fluid. PTC drain insertion site with bilious leakage surrounding. MUSCULOSKELETAL: No cyanosis, or edema. BACK: Nontender without obvious deformity. No CVA tenderness. Results - Labs CBC & Chem 7: 04/19/18 04:19 04/19/18 04:19 Laboratory Results - last 24 hr 04/18/18 04/19/18 04/19/18 12:06 04:19 04:19 WBC 12.5 H RBC 3.30 L Hgb 10.4 L D Hct 30.8 L MCV 93.4 D MCH 31.5 MCHC 33.7 RDW 14.9 Plt Count 237 MPV 8.7 Neut % (Auto) 89.0 H Lymph % (Auto) 2.8 L [place] % (Auto) 7.2 Eos % (Auto) 0.9 Baso % (Auto) 0.1 Neut # (Auto) 11.1 H Lymph # (Auto) 0.3 L [place] # (Auto) 0.9 Eos # (Auto) 0.1 Baso # (Auto) 0.0 WBC Differential . Differential Comment Auto diff final Sodium 144 Potassium 3.1 L D Chloride 112 H Carbon Dioxide 21.7 Anion Gap 10 BUN 57 H Creatinine 1.74 H Estimated GFR 29 L Random Glucose 114 H Calcium 9.1 D Phosphorus 3.5 D Magnesium 2.1 Total Bilirubin 3.4 H Direct Bilirubin 2.4 H Indirect Bilirubin 1.0 H AST 31 ALT 76 H Alkaline Phosphatase 168 H Total Protein 6.7 D Albumin 2.4 L D Random Vancomycin 11.3 Blood Type B Positive Antibody Screen Negative MTS Gel Crossmatch See Detail Microbiology 04/17/18 15:35 Fluid - Bile Fluid Gram Stain - Final 04/17/18 15:35 Fluid - Bile Fluid Body Fluid Culture - Preliminary gram negative rods 04/17/18 15:35 Blood - Peripheral Aerobic Blood Culture - Preliminary No growth in 1 day 04/17/18 15:35 Blood - Peripheral Anaerobic Blood Culture - Preliminary No growth in 1 day 04/17/18 15:50 Blood - Other Aerobic Blood Culture - Preliminary No growth in 1 day 04/17/18 15:50 Blood - Other Anaerobic Blood Culture - Preliminary No growth in 1 day 04/16/18 12:02 Blood - Line Aerobic Blood Culture - Preliminary Staphylococcus aureus 04/16/18 12:02 Blood - Line Anaerobic Blood Culture - Preliminary No growth in 2 days 04/16/18 12:09 Blood - Line Aerobic Blood Culture - Preliminary No growth in 2 days 04/16/18 12:09 Blood - Line Anaerobic Blood Culture - Final Staphylococcus aureus Assessment and Plan - Plan This is a 77-year-old female with a history of hyperlipidemia, left breast cancer status post chemotherapy and radiation and recently diagnosed metastatic pancreatic cancer to the liver s/p port placement and PET scan. She was sent from her oncologist clinic because of jaundice. Recent abdominal CT and MRI showed biliary and pancreatic ductal dilatation. Oncology on board, GI consulted,s/p ERCP, but did not go past the stenosis on the first portion of the duodenum. Status post percutaneous transhepatic cholangiography with metal stent placement by IR. Postprocedure, the patient became tachycardic, hypotensive, sepsis workup was done. Blood culture came back with gram- positive cocci, also developed acute renal failure. //Sepsis secondary to gram-positive bacteremia with hypotension-patient became hypotensive yesterday, tachycardic with leukocytosis, chest x-ray showed bilateral infiltrates that may be consistent with pneumonia. Was started on cefepime (04/16--), Blood culture growing gram-positive cocci, start vancomycin , consult infectious disease. Lactic acid was 1.8. Urinalysis did not show pyuria. Leukocytosis resolved today. -continues with tachycardia. We'll try albumin. MRSA bacteremia as well as gram -negative biliary infection. Continue antibiotics as per infectious disease. Follow up final cultures. = 04/19. Final cultures still pending. Patient continues tachycardic. Will start low-dose beta-jen. Continue IV antibiotics. Appreciate ID assistance. //Metastatic pancreatic cancer Oncology following. Appreciate assistance. Per discussion with on , will consult palliative care and hospice. //Acute renal failure, likely prerenal, from sepsis versus ATN nonoliguric- continue normal saline, increase to 100 cc/h, ultrasound of the kidneys showed increased echotexture of the parenchyma consistent with renal disease. No obstruction. Consult nephrology. Recheck BMP tomorrow, monitor I/O's. =creatinine improving to 1.7 today. Continue to monitor. //Hospital induced delirium versus encephalopathy We will check ammonia level. //Obstructive jaundice in a patient with a history of metastatic pancreatic cancer to the liver- s/p PTC metal stent placement. Pain management with oxycodone and IV morphine counseled regarding narcotics. AST ALT improving, total bilirubin went down from 6.1-5. Hold statins, continue pancreatic enzymes. She needs to start on palliative chemotherapy but to sick at this time. Recheck LFTs tomorrow. = 04/19. Worsening total bilirubin to 3.4 today. There is leakage from catheter insertion site, minimal drainage in bag. Will consult IR for repositioning. //Hypokalemia- = 04/19. Potassium 3.1. Replace and monitor. //DVT prophylaxis with SCD and early ambulation Patient full code, will discuss with when he comes in, might need to consult palliative care. Discharge Planning: pending consult to palliative care and hospice.
[2018-04-19] MEDS ORDERED: Metoprolol Tartrate 25 MG Tablet PO SCH (09:00)
[2018-04-19] MEDS ORDERED: Promethazine 25 MG Supp RECTAL PRN (10:00)
[2018-04-19] MEDS: Potassium Chlor 20 mEq Premix 20 MEQ/100 ML PIGGYBACK IV.SIG SCH ×2 (10:12→11:40)
--- NOTE | 2018-04-19 10:13 | P.PNONC ---
Subjective Interval history: Patient lying in bed, she appears anxious. Nurse from interventional radiology is at the bedside troubleshooting her biliary drain. The tube was found to be kinked and this was corrected. It is currently draining. Nurse reports patient vomited this a.m. At this time she is telling me she is thirsty. Her is at the bedside, tearful at times. He is decided to place the patient in the hospice care center. He is awaiting hospice consult at this time Objective Vital Signs/Intake & Output: Vital Signs 04/18/18 12:00 04/18/18 13:26 04/18/18 15:50 Temperature 97.2 F L 98 F Pulse Rate 112 H 119 H Respiratory Rate 18 18 Blood Pressure 132/70 165/87 H Pulse Oximetry 94 L 95 92 L 04/18/18 17:13 04/18/18 20:00 04/18/18 22:12 Temperature 98.3 F 98.5 F Pulse Rate 120 H 117 H Respiratory Rate 18 20 Blood Pressure 157/77 H 170/84 H Pulse Oximetry 92 L 93 L 94 L 04/18/18 22:32 04/18/18 23:50 04/19/18 00:16 Temperature 98.2 F 97.3 F L Pulse Rate 117 H 125 H 114 H Respiratory Rate 20 22 Blood Pressure 175/95 H 178/99 H Pulse Oximetry 92 L 92 L 04/19/18 00:34 04/19/18 04:00 04/19/18 04:21 Temperature 99.1 F 97.2 F L Pulse Rate 112 H 115 H 117 H Respiratory Rate 16 18 Blood Pressure 116/62 154/82 H Pulse Oximetry 96 94 L Intake & Output 04/18/18 04/19/18 04/19/18 18:59 06:59 18:59 Intake Total 500 / 500 2700 / 2700 Output Total 1350 / 1350 650 / 650 Balance -850 / -850 2049 / 2049 Intake: IV 2300 / 2300 NS Inj 1,000 ML @ 84 mls/hr IV. 1999 CONT .[id number] [facility] Rx#:[id number] Flexbumin 25% Inj 100 ML @ 60 100 / 100 mls/hr IV.SIG ONCE ONE Rx#: [id number] Maxipime Inj 2,000 MG In NS Inj 200 / 200 100 ML @ 200 mls/hr IV.SIG Q12H [facility] Rx#:[id number] Oral 500 / 500 Intake (Blood Product) Amt 400 / 400 Rbc As-3 Leukoreduced Unit 400 / 400 [id number] Output: Urine 1000 / 1000 600 / 600 Wound Drainage 350 / 350 50 / 50 # 1 Right 350 / 350 50 / 50 Other: # Voids 1 # Incontinent Voids 2 # Urine Diapers 3 Date of Last Bowel Movement 04/18/18 04/18/18 # Bowel Movements 1 2 Result Diagrams: 04/19/18 04:19 04/19/18 04:19 Laboratory Results: Laboratory Results - last 24 hr 04/18/18 04/19/18 04/19/18 12:06 04:19 04:19 WBC 12.5 H RBC 3.30 L Hgb 10.4 L D Hct 30.8 L MCV 93.4 D MCH 31.5 MCHC 33.7 RDW 14.9 Plt Count 237 MPV 8.7 Neut % (Auto) 89.0 H Lymph % (Auto) 2.8 L [place] % (Auto) 7.2 Eos % (Auto) 0.9 Baso % (Auto) 0.1 Neut # (Auto) 11.1 H Lymph # (Auto) 0.3 L [place] # (Auto) 0.9 Eos # (Auto) 0.1 Baso # (Auto) 0.0 WBC Differential . Differential Comment Auto diff final Sodium 144 Potassium 3.1 L D Chloride 112 H Carbon Dioxide 21.7 Anion Gap 10 BUN 57 H Creatinine 1.74 H Estimated GFR 29 L Random Glucose 114 H Calcium 9.1 D Phosphorus 3.5 D Magnesium 2.1 Total Bilirubin 3.4 H Direct Bilirubin 2.4 H Indirect Bilirubin 1.0 H AST 31 ALT 76 H Alkaline Phosphatase 168 H Total Protein 6.7 D Albumin 2.4 L D Random Vancomycin 11.3 Blood Type B Positive Antibody Screen Negative MTS Gel Crossmatch See Detail Culture Results: Microbiology 04/17/18 15:35 Gram Stain - Final Fluid - Bile Fluid Body Fluid Culture - Preliminary gram negative rods 04/16/18 12:02 Aerobic Blood Culture - Final Blood - Line Staphylococcus aureus Anaerobic Blood Culture - Preliminary No growth in 2 days 04/17/18 15:35 Aerobic Blood Culture - Preliminary Blood - Peripheral No growth in 1 day Anaerobic Blood Culture - Preliminary No growth in 1 day 04/17/18 15:50 Aerobic Blood Culture - Preliminary Blood - Other No growth in 1 day Anaerobic Blood Culture - Preliminary No growth in 1 day 04/16/18 12:09 Aerobic Blood Culture - Preliminary Blood - Line No growth in 2 days Anaerobic Blood Culture - Final Staphylococcus aureus Medications: Active Medications Generic Name Dose Route Start Last Admin Trade Name Freq PRN Reason Stop Dose Admin Acetaminophen 650 mg 04/18/18 10:28 04/18/18 21:24 Tylenol PO 650 mg Q4H PRN Administration SEE LABEL COMMENTS Lipase/Protease/Amylase 1 cap 04/15/18 18:00 04/19/18 08:45 Creon 10/19/29 PO 1 cap QID [facility] Administration Bupropion HCl 150 mg 04/14/18 17:00 04/19/18 08:45 Wellbutrin Sr PO 150 mg DAILY [facility] Administration Diphenhydramine HCl 25 mg 04/18/18 10:28 04/18/18 21:24 Benadryl PO 25 mg Q4H PRN Administration SEE LABEL COMMENTS Fluoxetine HCl 40 mg 04/15/18 09:00 04/19/18 08:45 Prozac PO 40 mg DAILY SH[facility]NA Administration Hydromorphone HCl 1 mg 04/16/18 12:32 04/19/18 08:46 Dilaudid Pf Inj IV.PUSH 1 mg Q4H PRN Administration NPO, pain 6-10 Sodium Chloride 1,000 mls @ 84 mls/hr 04/16/18 09:12 04/18/18 22:28 Ns Inj IV.CONT 84 mls/hr .[id number] [facility] Administration Cefepime HCl 2,000 mg/ Sodium 100 mls @ 200 mls/hr 04/17/18 02:00 04/19/18 03 :16 Chloride IV.SIG Infused Q12H [facility] Infusion Ipratropium Lee 0.5 mg 04/17/18 23:18 04/17/18 23:30 Atrovent Neb NEB 0.5 mg Q2HR NEB PRN Administration SHORTNESS OF BREATH Morphine Sulfate 2 mg 04/15/18 21:28 04/16/18 12:20 Morphine Inj IV.PUSH 2 mg Q3H PRN Administration BREAKTHROUGH PAIN Oxycodone HCl 10 mg 04/14/18 15:37 04/18/18 18:54 Roxicodone PO 10 mg Q4H PRN Administration PAIN SCALE 6 TO 10 Prochlorperazine Edisylate 10 mg 04/15/18 21:26 04/16/18 12:00 Compazine Inj IV.PUSH 10 mg Q6H PRN Administration NAUSEA OR VOMITING Senna/Docusate Sodium 1 tab 04/14/18 21:00 04/19/18 08:46 Claudia-Colace PO Not Given BID [facility] Sodium Chloride 2 ml 04/14/18 21:00 04/19/18 08:46 Ns Flush IV.FLUSH Not Given BID [facility] Sucralfate 1 gm 04/17/18 18:00 04/19/18 06:06 Carafate Liq PO 1 gm Q6HR [facility] Administration Trazodone HCl 50 mg 04/14/18 23:26 04/15/18 21:06 Desyrel PO 50 mg HS PRN Administration FOR SLEEP Objective Remarks: GENERAL: Ill-appearing elderly female patient, anxious and fidgeting. SKIN: Jaundiced, warm and dry. HEAD: Normocephalic. EYES: No scleral icterus. No injection or drainage. NECK: Supple, trachea midline. CARDIOVASCULAR: Regular rate and rhythm without murmurs. RESPIRATORY: Breath sounds clear, equal bilaterally. No accessory muscle use. GASTROINTESTINAL: Abdomen soft, non-tender. External drain, draining green fluid, no erythema or oozing at the site. EXTREMITIES: No cyanosis, or edema. MUSCULOSKELETAL: Adequate muscle tone. NEUROLOGICAL: Answers questions. Appears uncomfortable. PSYCHIATRIC: Fidgeting in the bed. Assessment/Plan - Plan 77-year-old female with history of metastatic pancreatic cancer who is due to start outpatient FOLFIRINOX but was noted to have transaminitis with elevated bilirubin of 7 outpatient. 1. Status post MRCP on 04/15/18 that showed evidence of obstructive jaundice. Patient underwent a PTC with internal drainage. She also has external biliary drain in place, currently draining green fluid. Drain checked by IR, functioning appropriately. 2. Discussed with the , he has elected to proceed with hospice care, at a care center. The patient is uncomfortable and he understands that her condition is declining and she likely does not have much time left. Comfort provided. Hospice has been consulted. 3. Continue supportive care
--- NOTE | 2018-04-19 11:45 | P.DS ---
Date of admission: 04/14/18 14:47 Primary care physician: UNKNOWN Brief History from admission: This is a 77-year-old female with a history of hyperlipidemia, left breast cancer status post chemotherapy and radiation and recently diagnosed metastatic pancreatic cancer to the liver. She underwent port placement and PET scan. She had a follow-up visit with her oncologist today to discuss initiation of chemotherapy when she was noted to be jaundiced. Her has noticed that she was for the past 2 days but did not say anything to her. She reports of continued nausea, anorexia and intermittent abdominal pain relieved with oxycodone. When she was hospitalized over 2 weeks ago, underwent abdominal CT and MRI which showed biliary and pancreatic ductal dilatation and pancreatic head mass. I have been requested by Dr. Ronda Alvarez to directly admit the patient. Also has abnormal liver function tests with total bilirubin 7.2, AST of 163, ALT of 282 and alkaline phosphatase of 374. All other systems reviewed negative DS: Summary Hospital Course: This is a 77-year-old female with a history of hyperlipidemia, left breast cancer status post chemotherapy and radiation and recently diagnosed metastatic pancreatic cancer to the liver s/p port placement and PET scan. She was sent from her oncologist clinic because of jaundice. Recent abdominal CT and MRI showed biliary and pancreatic ductal dilatation. Oncology on board, GI consulted,s/p ERCP, but did not go past the stenosis on the first portion of the duodenum. Status post percutaneous transhepatic cholangiography with metal stent placement by IR. Postprocedure, the patient became tachycardic, hypotensive, sepsis workup was done. Blood culture came back with gram- positive cocci, also developed acute renal failure.Due to metastatic pancreatic cancer, ongoing infection, poor prognosis, patient opted for discharge to hospice care center. For problem-based summary from most recent progress note, please see below. //Sepsis secondary to gram-positive bacteremia with hypotension-patient became hypotensive yesterday, tachycardic with leukocytosis, chest x-ray showed bilateral infiltrates that may be consistent with pneumonia. Was started on cefepime (04/16--), Blood culture growing gram-positive cocci, start vancomycin , consult infectious disease. Lactic acid was 1.8. Urinalysis did not show pyuria. Leukocytosis resolved today. -continues with tachycardia. We'll try albumin. MRSA bacteremia as well as gram -negative biliary infection. Continue antibiotics as per infectious disease. Follow up final cultures. = 04/19. Final cultures still pending. Patient continues tachycardic. Will start low-dose beta-jen. Continue IV antibiotics. Appreciate ID assistance. //Metastatic pancreatic cancer Oncology following. Appreciate assistance. Per discussion with on , will consult palliative care and hospice. //Acute renal failure, likely prerenal, from sepsis versus ATN nonoliguric- continue normal saline, increase to 100 cc/h, ultrasound of the kidneys showed increased echotexture of the parenchyma consistent with renal disease. No obstruction. Consult nephrology. Recheck BMP tomorrow, monitor I/O's. =creatinine improving to 1.7 today. Continue to monitor. //Hospital induced delirium versus encephalopathy We will check ammonia level. //Obstructive jaundice in a patient with a history of metastatic pancreatic cancer to the liver- s/p PTC metal stent placement. Pain management with oxycodone and IV morphine counseled regarding narcotics. AST ALT improving, total bilirubin went down from 6.1-5. Hold statins, continue pancreatic enzymes. She needs to start on palliative chemotherapy but to sick at this time. Recheck LFTs tomorrow. = 04/19. Worsening total bilirubin to 3.4 today. There is leakage from catheter insertion site, minimal drainage in bag. Will consult IR for repositioning. //Hypokalemia- = 04/19. Potassium 3.1. Replace and monitor. //DVT prophylaxis with SCD and early ambulation Patient full code, will discuss with when he comes in, might need to consult palliative care. Discharge Planning: pending consult to palliative care and hospice. - Time Spent with Patient Total time spent providing and/or coordinating discharge services: Greater than 30 minutes - Quality: VTE Deep Vein Thrombosis/Pulmonary Embolism Present on Admission: No Exam Vital signs: Vital Signs 04/18/18 12:00 04/18/18 13:26 04/18/18 15:50 Temperature 97.2 F L 98 F Pulse Rate 112 H 119 H Respiratory Rate 18 18 Blood Pressure 132/70 165/87 H Pulse Oximetry 94 L 95 92 L 04/18/18 17:13 04/18/18 20:00 04/18/18 22:12 Temperature 98.3 F 98.5 F Pulse Rate 120 H 117 H Respiratory Rate 18 20 Blood Pressure 157/77 H 170/84 H Pulse Oximetry 92 L 93 L 94 L 04/18/18 22:32 04/18/18 23:50 04/19/18 00:16 Temperature 98.2 F 97.3 F L Pulse Rate 117 H 125 H 114 H Respiratory Rate 20 22 Blood Pressure 175/95 H 178/99 H Pulse Oximetry 92 L 92 L 04/19/18 00:34 04/19/18 04:00 04/19/18 04:21 Temperature 99.1 F 97.2 F L Pulse Rate 112 H 115 H 117 H Respiratory Rate 16 18 Blood Pressure 116/62 154/82 H Pulse Oximetry 96 94 L Intake & Output 04/18/18 04/19/18 04/19/18 18:59 06:59 18:59 Intake Total 500 / 500 2700 / 2700 100 / 100 Output Total 1350 / 1350 650 / 650 Balance -850 / -850 2050 / 2050 100 / 100 Intake: IV 2300 / 2300 100 / 100 NS Inj 1,000 ML @ 84 mls/hr IV. 1999 / 1999 CONT .[id number] [facility] Rx#:[id number] Flexbumin 25% Inj 100 ML @ 60 100 / 100 mls/hr IV.SIG ONCE ONE Rx#: [id number] Maxipime Inj 2,000 MG In NS Inj 200 / 200 100 ML @ 200 mls/hr IV.SIG Q12H [facility] Rx#:[id number] KCl 20 mEq Premix Inj 20 meq In 100 / 100 100 ml @ 50 mls/hr IV.SIG Q2H [facility] Rx#:[id number] Oral 500 / 500 Intake (Blood Product) Amt 400 / 400 Rbc As-3 Leukoreduced Unit 400 / 400 [id number] Output: Urine 1000 / 1000 600 / 600 Wound Drainage 350 / 350 50 / 50 # 1 Right 350 / 350 50 / 50 Other: # Voids 1 # Incontinent Voids 2 # Urine Diapers 3 Date of Last Bowel Movement 04/18/18 04/18/18 # Bowel Movements 1 2 Results Procedures completed during hospitalization: PTC placement by IR. Please see report Labs on day of discharge: Labs from last 24 hours 04/19/18 04/19/18 04/18/18 04:19 04:19 12:06 WBC 12.5 H RBC 3.30 L Hgb 10.4 L D Hct 30.8 L MCV 93.4 D MCH 31.5 MCHC 33.7 RDW 14.9 Plt Count 237 MPV 8.7 Neut % (Auto) 89.0 H Lymph % (Auto) 2.8 L [place] % (Auto) 7.2 Eos % (Auto) 0.9 Baso % (Auto) 0.1 Neut # (Auto) 11.1 H Lymph # (Auto) 0.3 L [place] # (Auto) 0.9 Eos # (Auto) 0.1 Baso # (Auto) 0.0 WBC Differential . Differential Comment Auto diff final Sodium 144 Potassium 3.1 L D Chloride 112 H Carbon Dioxide 21.7 Anion Gap 10 BUN 57 H Creatinine 1.74 H Estimated GFR 29 L Random Glucose 114 H Calcium 9.1 D Phosphorus 3.5 D Magnesium 2.1 Total Bilirubin 3.4 H Direct Bilirubin 2.4 H Indirect Bilirubin 1.0 H AST 31 ALT 76 H Alkaline Phosphatase 168 H Total Protein 6.7 D Albumin 2.4 L D Random Vancomycin 11.3 Blood Type B Positive Antibody Screen Negative MTS Gel Crossmatch See Detail Preliminary micro results at discharge 04/17/18 15:35 Aerobic Blood Culture - Preliminary Blood - Peripheral No growth in 2 days Anaerobic Blood Culture - Preliminary No growth in 2 days 04/17/18 15:50 Aerobic Blood Culture - Preliminary Blood - Other No growth in 2 days Anaerobic Blood Culture - Preliminary No growth in 2 days 04/16/18 12:02 Anaerobic Blood Culture - Preliminary Blood - Line No growth in 3 days 04/16/18 12:09 Aerobic Blood Culture - Preliminary Blood - Line No growth in 3 days 04/17/18 15:35 Body Fluid Culture - Preliminary Fluid - Bile Fluid Proteus mirabilis Group D Enterococcus Staphylococcus aureus Minnie albicans - Impressions ITS Impressions Biliary Stent Insertion 04/15/18 00:00 CONCLUSION: 1. Uncomplicated biliary stent placement as above. External drain is present above the stent temporarily Cholangiopancreatography MRI 04/15/18 00:00 CONCLUSION: 1. There is a persistent high-grade obstruction of the distal common bile duct and main pancreatic duct causing upstream dilatation, as above. It is caused by a masslike lesion that is poorly delineated in the pancreatic head measuring approximately 2.8 x 1.9 cm. Imaging features are highly suspicious for a primary pancreatic adenocarcinoma. 2. There are innumerable enhancing lesions throughout the liver characteristic of metastatic disease. These demonstrated abnormal hypermetabolic activity on prior PET imaging as well. The number and size of the lesions have increased from the prior study suggesting progression of metastatic disease. 3. The L2 vertebral body lesion documented on prior PET/CT measures up to 1.5 cm and is suspicious for an osseous metastatic lesion. Abdomen/Bladder Ultrasound 04/16/18 00:00 CONCLUSION: 1. The renal parenchyma appears increased in echotexture consistent with renal disease. The renal cortex appears preserved in thickness. Chest X-Ray 04/16/18 00:00 CONCLUSION: Bilateral airspace opacities concerning for acute infectious process. Discharge Plan - Discharge Disposition Patient Disposition: [facility] Facility - Discharge Condition Condition: Fair - Discharge Order Discharge Orders: Discharge Order (Routine); Ordered 04/19/18 Ordered By: Colt Real - Discharge Details Anticipated Discharge Date: 04/19/18 - Physicians Team Primary Care Provider: UNKNOWN, Attending Provider: Colt Real Other Providers: Regino Genao MD ; Ronda Alvarez ; Lavinia Mahmood MD ; Izabela Toscano MD ; Kyle Strickland MD - Rxs /Orders / Referrals /Forms Prescriptions: New cefepime 2 gram Recon Soln 2,000 mg IV Q12H RF: 0 Continue bupropion HCl [Wellbutrin XL] 150 mg Tablet Extended Release 24 Hr 150 mg PO QAM fluoxetine 40 mg Capsule 40 mg PO DAILY [id number] [Zenpep] 3,000-10,000 -14,000-unit Capsule,Delayed Release(Dr/Ec) 40,000 unit PO QID ondansetron [Zofran ODT] 4 mg Tablet,Disintegrating 4 mg PO TID-QID PRN (Reason: Nausea) Qty: 20 RF: 0 oxycodone 5 mg Tablet 5 mg PO Q4-6H PRN (Reason: Acute Pain) oxycodone-acetaminophen [Percocet] 5-325 mg Tablet 1 - 2 tab PO Q4-6H PRN (Reason: Pain) Qty: 30 RF: 0 sucralfate 1 gram Tablet 1 g PO Q6H trazodone 50 mg Tablet 50 mg PO DAILY Discontinued simvastatin 20 mg Tablet 20 mg PO QPM Referrals: [facility] [Non-Staff] - See Instructions UNKNOWN, [Primary Care Provider] - See Instructions - Discharge Instructions Patient Printed Instructions: Acute Kidney Injury (DC)
[2018-04-19] MEDS ORDERED: Vancomycin Inj 1,500 MG in Sodium Chlor 0.9% Inj 500 ML IV.SIG ONE (12:00)
--- NOTE | 2018-04-19 12:59 | P.DIET ---
Nutritional Evaluation Type of nutrition evaluation: follow-up Nutrition consult regarding: Diet Evaluation Nutrition screening: Weight Loss > 10 lbs (FU weight loss screen ) Objective - Diagnosis jaundice, abdominal pain, weigt loss, pancreatic cancer with mets to liver - Objective [place] body weight: 47 kg % IBW: 130 Body Weight Used for Calculations: Actual (69) Energy Needs - Lower Range (kCal/kg): 28 Energy Needs - Upper Range (kCal/kg): 32 Lower Limit kCal/kg (kCals): 1,932 Upper Limit kCal/kg (kCals): 2,208 Lower Limit Protein Factor (Grams per Kg): 1.2 Upper Limit Protein Factor (Grams per Kg): 1.5 Lower Protein Needs (Protein): 83 Upper Protein Needs (Protein): 104 Fluid Factor (ml/kg): 30 Estimated Fluid Needs (ml): 2,070 Dietitian Reviewed in Medical Record: Current diet, Curent medications, Labs, Medical history Diet Order: Reguar diet Oral Diet Intake Amount: Poor <50% Objective Comments: PMH; breast cancer, hyperlipidemia, anxiety, depression Labs; potassium 3.1; being repleted, Cr. improving Medications; Creon Assessment Assessment: FU for weight loss screen (04/15). Pt is at nutritional risk 2/2 dx of weight loss and metastatic pancreatic cancer. Pt currently ordered for regular diet with PO intake <25% at meals. I spoke with pt today who had difficulty speaking 2/2 pain but I was able to understand that she does not have an appetite as she is in pain. Pt's was in the room and told me that she has been drinking a vanilla shake and is eating applesauce. Pt's said she likes the vanilla shake so I discussed sending her vanilla Ensure Enlive with each meal and they were agreeable. Additionally pt said she would like to try a yogurt as a snack during the day. Will monitor tolerance and acceptance to supplement. Noted agreeable to hospice care, will continue to monitor pt's clinical course. Recommendations: 1. Ensure Enlive TID 2. Add additional yogurt to pt tray 3. Monitor tolerance and acceptance to supplement Dietitian to Monitor: Lab values, Weight change, PO Intake
[2018-04-19 13:31] VITALS: BP 176/87; PULSE 112; RESP 24; TEMP 97.8; O2SAT 91
== END 2018-04-19 15:18 | disposition hospice, inpatient (51) | DRG 444 ==
LOC: HCIN 14:47
PROVIDERS: ADMIT Internal Medicine; ATTEND Internal Medicine
CPT/HCPCS: 36430; 47538; 71010; 71045; 74183; 76377; 76775; 80048; 80053; 80069; 80076; 80202; 81001; 82550; 83605; 83735; 83935; 84100; 84300; 85025; 85610; 85730; 86403; 86850; 86900; 86901; 86923; 87040; 87070; 87077; 87149; 87186; 87205; 92610; 94664; 96523; 99145; 99152; 99153; A4646; A9585; C1725; C1729; C1758; C1765; C1769; C1876; C1887; C1893; C1894; C2617; G0195; J0692; J0780; J1170; J1642; J2250; J2270; J2405; J3010; J3370; J3480; J7030; J7040; J7050; P9016; P9047; Q9950; Q9965; Q9967